=== PATIENT | female | born 1990 | race Caucasian/White ===

== ENCOUNTER 2017-03-06 13:48 | Emergency (ER) | payer BC ==
[2017-03-06 14:13] VITALS: BP 113/71
[2017-03-06] MEDS ORDERED: Ketorolac INJ* 60 MG/2 ML VIAL IM ONE (14:33)
--- NOTE | 2017-03-06 15:33 | UC ---
Back Pain HPI - HPI Summary HPI Summary: YESTERDAY BEGAN HAVING FREQUENT SPAMS IN MUSCLES OF LEFT LOW/MID BACK. NO KNOWN INJURY. NO DISCOMFORT WITH URINATION. NO ABDOMINAL PAIN. - History of Current Complaint Chief Complaint: UCBackPain Stated Complaint: BACK INJURY Time Seen by Provider: 03/06/17 14:18 Hx Obtained From: Patient Hx Last Menstrual Period: 02/24/17 Onset/Duration: Sudden Onset, Lasting Days, Still Present Timing: Intermittent Severity Initially: Moderate Severity Currently: Mild Pain Intensity: 2 Pain Scale Used: 0-10 Numeric Back Pain: Is Discrete @ - LEFT MID LOW BACK PARASPINAL MUSCLES Character: Spasmodic Aggravating: Movement, Lifting, Bending Alleviating: Rest, Position Associated Signs And Symptoms: Negative: Swelling, Redness, Bruising, Fever, Weakness, Numbness, Tingling, Abdominal Pain, Flank Pain, Bladder Incontinence, Bowel Incontinence, Pain with Weight Bearing - Risk Factors AAA Risk Factors: Negative TAD Risk Factors: Negative Cauda Equina Risk Factors: Negative Epidural Abscess Risk Factors: Negative - Allergies/Home Medications Allergies/Adverse Reactions: Allergies Allergy/AdvReac Type Severity Reaction Status Date / Time Penicillins Allergy Unknown Unknown Verified 04/04/16 12:48 Reaction Details Sulfa Antibiotics Allergy Unknown Unknown Verified 04/04/16 12:48 Reaction Details Home Medications: Home Medications Cyanocobalamin [Vitamin B-12] 1,000 mcg SL 03/06/17 [History] PMH/Surg Hx/FS Hx/Imm Hx Previously Healthy: Yes - Surgical History Surgical History: None Surgery Procedure, Year, and Place: tonsilectomy - Family History Known Family History: Negative: Renal Disease - Social History Occupation: Employed Full-time Lives: With Family Alcohol Use: None Substance Use Type: None Smoking Status (MU): Former Smoker Type: Cigarettes Amount Used/How Often: 1/3 PPD Length of Time of Smoking/Using Tobacco: 10 years Have You Smoked in the Last Year: Yes Review of Systems Constitutional: Negative Skin: Negative Eyes: Negative ENT: Negative Respiratory: Negative Cardiovascular: Negative Gastrointestinal: Negative Genitourinary: Negative Motor: Negative Neurovascular: Negative Musculoskeletal: Myalgia Neurological: Negative Psychological: Negative All Other Systems Reviewed And Are Negative: Yes - Comments Additional Review of Systems Comments: Current medications reviewed and performance met. except as documented, all other systems reviewed and negative Physical Exam Triage Information Reviewed: Yes Appearance: Well-Appearing, No Pain Distress, Well-Nourished Vital Signs: Initial Vital Signs Temp 98.2 F 03/06/17 14:09 Pulse 75 03/06/17 14:09 Resp 18 03/06/17 14:09 BP 113/71 03/06/17 14:09 Pulse Ox 99 03/06/17 14:09 Vital Signs Reviewed: Yes Eye Exam: Normal ENT Exam: Normal ENT: Positive: Normal ENT inspection, Hearing grossly normal, Pharynx normal, TMs normal Dental Exam: Normal Neck exam: Normal Neck: Positive: Supple, Nontender, No Lymphadenopathy Respiratory Exam: Normal Respiratory: Positive: Chest non-tender, Lungs clear, Normal breath sounds, No respiratory distress, No accessory muscle use Cardiovascular Exam: Normal Cardiovascular: Positive: RRR, No Murmur, Pulses Normal Abdominal Exam: Normal Abdomen Description: Positive: Nontender, No Organomegaly Musculoskeletal Exam: Other - 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 Discharge - Discharge Plan Condition: Stable Disposition: HOME Prescriptions: Cyclobenzaprine TAB* [Flexeril 10 MG TAB*] 10 mg PO TID PRN #15 tab PRN Reason: Spasms Patient Education Materials: Low Back Strain (ED), Muscle Spasm (ED) Referrals: Lisa Mtz MD [Primary Care Provider] - Additional Instructions: PHYSICAL THERAPY REFERRAL: You have been prescribed physical therapy. Treatments may include stretching, exercise, application of heat or cold, and other modalities. After an injury, PT can reduce swelling and pain. In recovery, PT is used to restore mobility and strength. Your specific treatment goals are: Reduction of Swelling (EGS, US, ice as needed) ___X__ Pain Reduction (EGS, US, ice as needed) ___X__ TENS Pack Fitting and Instruction Wound Hydrotherapy ___X__ Preservation of Mobility ___X__ Gnosticist of Mobility ___X__ Strength Gnosticist ___X__ Work or Sports Hardening This instruction sheet also serves as your PHYSICAL THERAPY REFERRAL! Please take it with you to the therapist, so he/she will be aware of your diagnosis and treatment plan. You may see the physical therapist of your choice for these treatments, but may wish to check with your insurance to be sure the provider you select is covered. It's important to see the doctor to whom you have been referred for follow up.
== END 2017-03-06 15:16 | disposition home or self-care (01) ==
LOC: UCEAST 13:48
DX: S39.012A Strain of muscle, fascia and tendon of lower back, initial encounter (principal); X58.XXXA Exposure to other specified factors, initial encounter; Y93.9 Activity, unspecified; Y92.9 Unspecified place or not applicable; M62.830 Muscle spasm of back; Z88.0 Allergy status to penicillin; Z88.2 Allergy status to sulfonamides; Z87.891 Personal history of nicotine dependence
CPT/HCPCS: 81003; 96372; 99212; G0463; J1885

== ENCOUNTER 2017-09-11 17:24 | Emergency (ER) | payer BC ==
[2017-09-11 17:31] VITALS: BP 122/65
--- NOTE | 2017-09-11 17:37 | UC ---
Skin Complaint HPI - HPI Summary HPI Summary: 27 year old female presents with complains of rash on her left groin. - History of Current Complaint Chief Complaint: UCSkin Time Seen by Provider: 09/11/17 17:33 Stated Complaint: RASH Hx Obtained From: Patient Hx Last Menstrual Period: 08/26/17 Onset/Duration: Sudden Onset Onset Severity: Moderate Current Severity: Moderate Location: Discrete - Allergy/Home Medications Allergies/Adverse Reactions: Allergies Allergy/AdvReac Type Severity Reaction Status Date / Time Penicillins Allergy Unknown Unknown Verified 09/11/17 17:30 Reaction Details Sulfa Antibiotics Allergy Unknown Unknown Verified 09/11/17 17:30 Reaction Details Home Medications: Home Medications ALPRAZolam TAB* [Xanax TAB*] 0.25 mg PO PRN 09/11/17 [History] Review of Systems Constitutional: Negative Skin: Rash Eyes: Negative ENT: Negative Respiratory: Negative Cardiovascular: Negative Gastrointestinal: Negative Genitourinary: Negative Motor: Negative Neurovascular: Negative Musculoskeletal: Negative Neurological: Negative Psychological: Negative All Other Systems Reviewed And Are Negative: Yes PMH/Surg Hx/FS Hx/Imm Hx Previously Healthy: Yes - Surgical History Surgical History: Yes Surgery Procedure, Year, and Place: tonsillectomy - Family History Known Family History: Negative: Renal Disease - Social History Alcohol Use: None Substance Use Type: None Smoking Status (MU): Former Smoker Type: Cigarettes Amount Used/How Often: 1/3 PPD Length of Time of Smoking/Using Tobacco: 10 years Have You Smoked in the Last Year: Yes Physical Exam Triage Information Reviewed: Yes Vital Signs: Initial Vital Signs Temp 36.6 C 09/11/17 17:27 Pulse 73 09/11/17 17:27 Resp 16 09/11/17 17:27 BP 122/65 09/11/17 17:27 Pulse Ox 100 09/11/17 17:27 Vital Signs Reviewed: Yes Eye Exam: Normal ENT Exam: Normal Dental Exam: Normal Neck exam: Normal Neck: Positive: 1 Respiratory Exam: Normal Cardiovascular Exam: Normal Abdominal Exam: Normal Musculoskeletal Exam: Normal Neurological Exam: Normal Psychological Exam: Normal Skin: Positive: rashes Course/Dx - Diagnoses Provider Diagnoses: left groin rash Discharge - Discharge Plan Condition: Stable Disposition: HOME Prescriptions: Clotrimazole/Betamethasone* [Lotrisone Cream*] 1 applic TOPICAL BID PRN #45 gm PRN Reason: Itching Methylprednisolone [Medrol Dosepak 4 MG*] 4 mg PO .SEE PEACE INSTRUCTION #21 tab Patient Education Materials: Acute Rash (ED) Referrals: Larisa Huddleston [Medical Doctor] - Lisa Mtz MD [Primary Care Provider] -
== END 2017-09-11 18:12 | disposition home or self-care (01) ==
LOC: UCEAST 17:24
DX: R21 Rash and other nonspecific skin eruption (principal); Z88.0 Allergy status to penicillin; Z88.2 Allergy status to sulfonamides; Z87.891 Personal history of nicotine dependence
CPT/HCPCS: 99212; G0463

== ENCOUNTER 2018-06-27 18:29 | Inpatient (IN) | payer BC ==
[2018-06-27 19:20] LABS: ABS Basophils 0 10^3/ul (0-0.2); ABS Eosinophils 0.2 10^3/ul (0-0.6); ABS Lymphocytes 2.6 10^3/ul (1.0-4.8); ABS Monocytes 0.6 10^3/ul (0-0.8); ABS Neutrophils 4.8 10^3/ul (1.5-7.7); ABS Nucleated RBC 0 10^3/ul; Eosinophil % 2.3 % (0-6); Hematocrit 38 % (35-47); Hemoglobin 13.2 g/dl (12.0-16.0); Lymphocyte % 31.6 % (25-47); Mean Corpuscular HGB Conc 34 g/dl (31-36); Mean Corpuscular Hemoglobin 31 pg (27-31); Mean Corpuscular Volume 89 fL (80-97); Mean Platelet Volume 7.9 um3 (7.4-10.4); Nucleated Red Blood Cells % 0.2; Platelet Count 215 10^3/ul (150-450); Red Cell Distribution Width 13 % (10.5-15); White Blood Count 8.2 10^3/ul (3.5-10.8)
--- NOTE | 2018-06-27 19:36 | ED ---
Shortness of Breath - HPI Summary HPI Summary: 19 female presents to ER transfer from [address] [place] [address] urgent care with complaints of shortness of breath and chest discomfort that has been ongoing for the past 5 issue days. States symptoms have seemed to increase over the past couple days. Admits to oral contraceptive use and recent long distance travel from [place]. No history of blood clot or PE. States chest pain or distress of breath or worsening exertion. Describes it to be sharp upon deep inspiration and a constant ache at rest. Denies nausea, vomiting, fever or chills or recent illness. Denies cigarette use for the past 3 years. No cardiac or respiratory history. No radiation of pain. No recent calf pain or swelling. - History of Current Complaint Chief Complaint: EDShortnessOfBreath Time Seen by Provider: 06/27/18 18:51 Hx Obtained From: Patient Onset/Duration: Sudden Onset, Lasting Days, Still Present, Worse Since Timing: Constant Current Severity: Moderate Dyspnea At: Exertion Aggrevating Factors: Deep Breaths Alleviating Factors: Nothing Associated Signs & Symptoms: Negative - Risk Factors Pulmonary Embolism: Oral Contraceptives, Recent Travel Cardiac: Negative Pseudomonas: Negative Tuberculosis: Negative - Allergy/Home Medications Allergies/Adverse Reactions: Allergies Allergy/AdvReac Type Severity Reaction Status Date / Time Penicillins Allergy Hives Verified 06/27/18 18:49 Sulfa (Sulfonamide Allergy Hives Verified 06/27/18 18:49 Antibiotics) Home Medications: Home Medications Ethinyl Estradiol/Drospirenone [Loryna] 1 tab PO DAILY 06/27/18 [History Confirmed 06/27/18] PMH/Surg Hx/FS Hx/Imm Hx Endocrine/Hematology History: Denies: Hx Diabetes Cardiovascular History: Denies: Hx Deep Vein Thrombosis, Hx Hypertension Respiratory History: Denies: Hx Asthma History: Denies: Hx Renal Disease - Surgical History Surgery Procedure, Year, and Place: tonsillectomy - Immunization History Immunizations Up to Date: Yes Infectious Disease History: No Infectious Disease History: Denies: Hx Clostridium Difficile, Hx Hepatitis, Hx Human Immunodeficiency Virus (HIV), Hx of Known/Suspected MRSA, Hx Shingles, Hx Tuberculosis, Hx Known/ Suspected VRE, Hx Known/Suspected VRSA, History Other Infectious Disease, Traveled Outside the in Last 30 Days - Family History Known Family History: Negative: Renal Disease - Social History Alcohol Use: None Substance Use Type: Reports: None Smoking Status (MU): Former Smoker Type: Cigarettes Amount Used/How Often: 1/3 PPD Length of Time of Smoking/Using Tobacco: 10 years Have You Smoked in the Last Year: Yes Review of Systems Constitutional: Negative Eyes: Negative ENT: Negative Positive: Chest Pain Positive: Shortness Of Breath Gastrointestinal: Negative Musculoskeletal: Negative Skin: Negative Neurological: Negative All Other Systems Reviewed And Are Negative: Yes Physical Exam Triage Information Reviewed: Yes Vital Signs On Initial Exam: Initial Vitals Temp Pulse Resp BP Pulse Ox 98.8 F 84 18 140/98 98 06/27/18 18:31 06/27/18 18:31 06/27/18 18:31 06/27/18 18:31 06/27/18 18:31 Vital Signs Reviewed: Yes Appearance: Positive: Well-Appearing, No Pain Distress, Well-Nourished Skin: Positive: Warm, Skin Color Reflects Adequate Perfusion, Dry. Negative: Cold, Soft, Cyanosis @, Pale, Erythema @ Head/Face: Positive: Normal Head/Face Inspection Eyes: Positive: Conjunctiva Clear ENT: Positive: Pharynx normal Neck: Positive: Supple, Nontender Respiratory/Lung Sounds: Positive: Clear to Auscultation, Breath Sounds Present , Decreased Breath Sounds, Fatigue - with speaking in sentences frequent breaks due to feeling SOB, Other - Chest discomfort upon deep inspiration. Negative: Rales, Rhonchi, Stridor, Tracheal Deviation, Wheezes Cardiovascular: Positive: Normal, RRR, Pulses are Symmetrical in both Upper and Lower Extremities, Other - Chest pain nonreproducible. Negative: Murmur, Rub, Tachycardia, Leg Edema Left, Leg Edema Right Abdomen Description: Positive: Nontender, Soft Bowel Sounds: Positive: Present Musculoskeletal: Positive: Normal, Strength/ROM Intact Neurological: Positive: Normal, Sensory/Motor Intact, Alert, Oriented to Person Place, Time, Normal Gait Diagnostics - Vital Signs Vital Signs Temp Pulse Resp BP Pulse Ox 06/27/18 19:16 20 124/77 06/27/18 19:00 87 24 100 06/27/18 18:46 88 16 132/73 99 06/27/18 18:31 98.8 F 84 18 140/98 98 - Laboratory Lab Results: Lab Results 06/27/18 06/27/18 Range/Units 19:15 19:15 WBC 8.2 (3.5-10.8) 10^3/ul RBC 4.30 (4.00-5.40) 10^6/ul Hgb 13.2 (12.0-16.0) g/dl Hct 38 (35-47) % MCV 89 (80-97) fL MCH 31 (27-31) pg MCHC 34 (31-36) g/dl RDW 13 (10.5-15) % Plt Count 215 (150-450) 10^3/ul MPV 7.9 (7.4-10.4) um3 Neut % (Auto) 58.3 (38-83) % Lymph % (Auto) 31.6 (25-47) % Villalba % (Auto) 7.2 H (0-7) % Eos % (Auto) 2.3 (0-6) % Baso % (Auto) 0.6 (0-2) % Absolute Neuts (auto) 4.8 (1.5-7.7) 10^3/ul Absolute Lymphs (auto) 2.6 (1.0-4.8) 10^3/ul Absolute Monos (auto) 0.6 (0-0.8) 10^3/ul Absolute Eos (auto) 0.2 (0-0.6) 10^3/ul Absolute Basos (auto) 0 (0-0.2) 10^3/ul Absolute Nucleated RBC 0 10^3/ul Nucleated RBC % 0.2 D-Dimer, Quantitative > 1050 H (Less Than 230) ng/mL Result Diagrams: 06/27/18 19:15 06/27/18 19:15 Lab Statement: Any lab studies that have been ordered have been reviewed, and results considered in the medical decision making process. - CT CTA chest CT Interpretation: Positive (See Comments) - Moderate to large volume pulmonary emboli burning without findings of right heart strain CT Interpretation Completed By: Radiologist Re-Evaluation - Re-Evaluation First Eval Re-Evaluation Time: 20:00 Change: Unchanged - Updated on lab results Second Eval Re-Evaluation Time: 20:45 Change: Unchanged - Updated on imaging results and course of treatment/plan. All questions were answered. Patient agrees and understands. Course/Dx - Course Course Of Treatment: Labs, EKG, and hCG obtained. Negative troponin. D-dimer was positive. EKG and rest of labs unremarkable. Negative hCG. CTA obtained and sent positive for bilateral PE. Patient will be admitted to Dr. Torres for treatment and close observation. - Diagnoses Differential Diagnosis/HQI/PQRI: Positive: Chest Wall Pain, Pulmonary Embolism Provider Diagnoses: Pulmonary embolism - Physician Notifications Discussed Care of Patient With: Dr Torres Time Discussed With Above Provider: 20:45 Instructed by Provider To: Admit As Inpatient Admit/Transition Orders Completed By ED Provider: No Discharge - Sign-Out/Discharge Documenting (check all that apply): Patient Departure - Discharge Plan Condition: Stable Disposition: ADMITTED TO [facility] - Billing Disposition and Condition Condition: STABLE Disposition: Admitted to [facility]
[2018-06-27 19:37] LABS: EGFR Non-African American 106.6 (>60)
--- OUTSIDE RECORDS SUMMARY | 2018-06-27 19:44 | XMS REPORT ---
:1990 External Reference #:[id number] Author Organization [facility] Address [address] [place] [address] Phone [phone] Care Team Providers Name Role Phone Lisa Mtz M.D. Primary Care Physician Unavailable Payers Type Date Identification Payment Subscriber Numbers Provider Health Maintenance Expires: Policy Number: [facility] (O) 11/18/2012 [id number] [facility]ина ) Group Name: [place] [address] PayID: [id number] [place] [address] Medigap Part B Expires: 11/18/2012 Policy Number: Tom Ramos [id number] [address] [place] [address] Medigap Part B Effective: Policy Number: [facility] Jerzy 07/03/2012 [id number] [facility] Expires: 11/18/2014 Group Number: [id number] Paula Group Name: [place] [address] Commercial Effective: Policy Number: Jorge Luis [facility] Jerzy Laxmi 11/19/2014 [id number] Medicaid [place] Expires: 04/17/2015 PayID: [id number] [address] [place] [address] Medigap Part B Effective: Policy Number: Aielen Hair 04/19/2015 [id number] [facility] Group Name: [employer] 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 quit 9 Pack Daily mos ago ETOH Use Rarely consumes alcohol Recreational Drug Use Denies Drug Use Daily Caffeine Consumes on average 2 cups of coffee per day Seat Belt/Car Seat always uses seat belt Currently Active Has never engaged in sexual activity Parental Involvement mother and father are both very involved Allergies, Adverse Reactions, Alerts Date Description Reaction Status Severity Comments 09/01/2003 Sulfa active Hives 09/01/2003 Augmentin active Hives 09/24/2006 Food inactive Swelling Face/ Hives- ? Food- + To Celery, Onions, Pepp Medications Medication Date Status Form Strength Qnty SIG Indications Ordering Provider Propranolol HCL 05/30 Active Tablets 10mg 30tab 1 tab by F40.241 s mouth three [place], times a day MD as needed for acrophobia Loratadine 09/14 Active Tablets 10mg (generic for claritin)- 1 P. Blegen, by mouth M.D. every day as needed allergies Multi Complete 06/14 Active Capsules occasionally Shawnti R. /2014 Justo, MAINTENANCE REPAIRER-C Alprazolam 11/28 Active Tablets 0.25mg 30tab 11/20-1 by Jeff s mouth every [place] night at III, MAINTENANCE REPAIRER-C bedtime as needed anxiety Loryna Active Tablets 3-0.02mg Unknown /0000 Vitamin B-12 03/25 Hx Tablets 1000mcg 1 by mouth Lisa every day- P. Blegen, - sublingual- M.D. 05/30 for vitamin b12 deficiency Azithromycin 10/25 Hx Tablets 250mg 6tabs take 2 J01.90 tablets by Gutierrez, - mouth one MD 05/30 time take one daily for 4 days. Wait to fill until patient calls. Ergocalciferol 10/08 Hx Capsules [id number] 12cap take 1 Lisa s capsule by Miladis Mtz, - mouth every M.D. 05/30 week as directed for vitamin d deficiency as directed Flexeril 07/20 Hx Tablets 5mg 30tab 1-2 tabs M53.3 Preston s daily for [place], - muscle spasm MD 09/14 Metamucil Smooth 03/30 Hx Packet 28% 90uni 1 packet by K58.0 Shawnti R. Texture ts mouth daily Storm, Singles - MAINTENANCE REPAIRER-C 09/14 Cyclobenzaprine 05/06 Hx Tablets 10mg 15tab (flexeril)- 724.5 Lisa HCL /2014 s 1 by mouth Miladis Mtz, - twice a day M.D. 06/14 as needed /2014 muscle spasm Robitussin ac 04/10 Hx 300ml 1-2 teaspoon 465.8 Kayla /2013 by mouth Melina Gentile, - q4-6hr as M.D. 04/20 needed /2013 cough/pain Hydroxyzine HCL 04/10 Hx Tablets 10mg 30tab 1 or 2 po 465.8 Kayla /2013 s tid prn for Melina Gentile, - anxiety M.D. 06/14 Fluocinonide 11/13 Hx Ointment 0.05% 30gm apply 691.8 Martywnti R. sparignly to Storm, - affeceted MAINTENANCE REPAIRER-C 04/10 area bid prn /2013 Sertraline HCL 10/09 Hx Tablets 50mg 135ta 1 and 1/2 po 296.35 Lisa bs qd Miladis Mtz, - M.D. 11/13 Hydroxyzine HCL 10/09 Hx Tablets 10mg 30tab 1 or 2 po Shawnti R. s tid prn for Storm, - anxiety MAINTENANCE REPAIRER-C 11/28 Azithromycin 07/27 Hx Tablets 250mg 6tabs 2 po today 461.0 Rosalina /2010 then 1 po Alysha, - daily for 4 M.D., R.D. Sertraline HCL 06/22 Hx Tablets 25mg 90tab one po 296.35 Shawnti R. s daily for Storm, - anxiety and MAINTENANCE REPAIRER-C 10/09 depression Fluoxetine HCL 01/12 Hx Tablets 10mg 1 po qd 300.00 Shawnti R. Storm, - MAINTENANCE REPAIRER-C 07/27 Azithromycin 12/15 Hx Tablets 250mg 6tabs 2 tabs po on 486 day one then P. Blegen, - 1 tab qd for M.D. 07/27 Azithromycin 09/27 Hx Tablets 250mg 6tabs 2 po today 466.0 Shawnti R. /2008 then 1 po Storm, - daily for 4 MAINTENANCE REPAIRER-C Robitussin ac 09/27 Hx 150ml 1-2 tsp po 466.0 Shawnti R. q4-6hr prn Storm, - cough/pain MAINTENANCE REPAIRER-C 07/27 Proventil HFA 08/03 Hx Aerosol 108mcg/Ac 1unit 2 puffs q 4 t s hours prn P. Blegen, - wheezing/ M.D. 11/27 cough Ergocalciferol 01/03 Hx Tablets 50,000Uni 12tab one po Three ts s Times Per P. Blegen, - Week Then M.D. 05/09 Recheck Bloodwork Ibuprofen 10/21 Hx Tablets 800mg 30tab One PO tid 625.3 Cherelle A. s With Food Skye, - prn F.N.P.C. 11/27 Asmanex 08/28 Hx Inhaler 220mcg 1unit Inhale One 466.0 Shawnti R. Twistihaler s Dose QHS For Storm, - Asthma, MAINTENANCE REPAIRER-C 09/11 Rinse Mouth After Use No Work 08/25 Hx please 466.0 Shawnti R. excuse due Storm, - to illness, MAINTENANCE REPAIRER-C 07/27 may once feeling better Albuterol 08/25 Hx Aerosol 90mcg/Act 1Inha 2 puffs 466.0 Shawnti R. lr every 4-6 , - hours if MAINTENANCE REPAIRER-C 11/27 needed for cough, wheeze or shortness of breath Return To Work 06/01 Hx full duty, 724.5 Cherelle A. /2007 no Skye, - restrictions F.N.P.C. 07/27 . hx of neck /2010 injury Zyrtec-D 03/03 Hx Tablets 5-120mg 60tab 1 po bid for 465.9 Shawnti R. /2007 ER 12HR s allergies Storm, - MAINTENANCE REPAIRER-C 11/27 Robitussin ac 03/03 Hx 150ml 1-2 tsp po 465.9 Shawnti R. /2007 q4-6hr prn Storm, - cough/pain MAINTENANCE REPAIRER-C 11/27 No School 03/03 Hx please 465.9 Shawnti R. excuse due Storm, - to illness, MAINTENANCE REPAIRER-C 07/27 when feeling better Ortho Tri-Cyclen 12/30 Hx Tablets 1tabs Use as Lisa Directed PDenise Blegen, - M.D. 11/27 Zithromax 07/24 Hx Tablets 500mg 3tabs 1 qd X 3 465.9 Cherelle A. Tri-Steve 2006March, - Repeat After F.N.P.C. 08/03 10 Days SX Persist Zithromax Z-Steve 05/21 Hx Tablets 250mg 6tabs two po qd Lisa today and P. Blegen, - then one po M.D. 07/27 qd for days Phenergan 12/11 Hx Tablets 25mg 6tabs 1 per rectum q 6 hours P. Blegen, - prn nausea/ M.D. 07/27 vomiting Excuse From 10/29 Hx this is to Lisa confirm PT P. Blegen, - seen at our M.D. 07/27 office today for acute visit Gentamycin Ophth 02/22 Hx Solution 3mg/ml 5ml 2 Drops qid 372.30 Cherelle Saini. Until SX , - Resolved For F.N.P.C. 11/27 5 Benzaclin Gel 07/17 Hx 50Gra use qhs up m to bid for P. Blegen, - acne as M.D. 02/22 Singulair 07/22 Hx Tablets 10mg 30tab one qd at hs s P. Blegen, - M.D. 02/22 Prednisone 07/22 Hx Tablets 10mg 10tab use 1 tab s bid x 5 P. Blegen, - days- take M.D. 02/22 with Zyrtec 07/19 Hx Tablets 10mg 30tab 1 po qd s P. Blegen, - M.D. 02/22 Janet Tabs Hx Tablets 180mg 0tabs one qd Unknown /0000 - 07/19 Sudafed Hx Tablets 30mg prn /0000 - 11/27 Medications Administered in Office Medication Date Status Form Strength Qnty SIG Indications Ordering Provider Vitamin B-12 Administered Injection Lab and Injection-To 009 Office 1000g Services Vitamin B-12 Administered Injection Lab and Injection-To 009 Office 1000g Services Vitamin B-12 Administered Injection Lisa P. Injection-To 009 Blegen, 1000mcg M.D. Vitamin B-12 Administered Injection Lisa P. Injection-To 009 Blegen, 1000mcg M.D. Vitamin B-12 Administered Injection Lisa P. Injection-To 009 Blegen, 1000mcg M.D. Vitamin B-12 Administered Injection Lisa P. Injection-To 009 Blegen, 1000mcg M.D. Vitamin B-12 Administered Injection Lisa P. Injection-To 009 Blegen, 1000mcg M.D. TB,Intradermal Administered Injection Milton (PPD, Mantoux) 990 Varun Bee Immunizations CPT Code Status Date Vaccine Lot # [id number] Given 10/02/2017 Influenza Virus Vaccine, Quadrivalent, 3 Yr > Quad, Preserv Free 82891 Given 08/17/2016 Influenza Virus Vaccine, Quadrivalent, 3 Yr > Quad, Preserv Free 26446 Given 05/19/2014 Tdap (Adacel) [id number] 37626 Given 11/28/2012 Menactra (meningococcal conjugate vaccine) [id number] 69945 Given 09/13/2011 Influenza Vaccine-Preservative Free 3 Yrs And [id number] Above 98389 Given 04/09/2007 Meningococcal Polysaccharide Vaccine [id number] 54803 Given 12/04/2006 Influenza Virus Vaccine, 3 Yrs And Above 38436 34753 Given 04/18/2005 DT (Adult) 64088 Given 01/14/2002 Hep B Vaccine, Ped/Adol Dose 3 Dose (Engerix or Recombivax) 15925 Given 09/20/2001 Hep B Vaccine, Ped/Adol Dose 3 Dose VFC (Engerix or Recombivax) 60301 Given 07/17/2001 Hep B Vaccine, Ped/Adol Dose 3 Dose VFC (Engerix or Recombivax) 12778 Given 12/22/1993 DPT 73500 Given 12/22/1993 MMR (Measles,Mumps,Rubella) 62416 Given 12/22/1993 Opv (Poliovirus,Oral) 56218 Given 08/16/1992 DPT 37980 Given 08/16/1992 Hib (Hemophilus Influenza B) (Acthib) 26261 Given 07/28/1992 Opv (Poliovirus,Oral) 09862 Given 07/28/1992 MMR (Measles,Mumps,Rubella) 27336 Given 09/26/1990 Hib (Hemophilus Influenza B) (Acthib) 83974 Given 02/22/1990 DPT 83103 Given 1989 Opv (Poliovirus,Oral) 20500 Given 1989 DPT 97355 Given 1989 Opv (Poliovirus,Oral) 16970 Given 1989 DPT Vital Signs Date Vital Result Comment 05/30/2018 Weight 213.00 lb Weight in kg's 96.617 BP Systolic 120 mmHg BP Diastolic 76 mmHg Heart Rate 68 /min Body Temperature 99.6 F Respiratory Rate 16 /min Height 68.5 inches 5'8.50" BMI (Body Mass Index) 31.9 kg/m2 05/07/2018 Weight 217.00 lb Weight in kg's 98.431 BP Systolic 120 mmHg BP Diastolic 82 mmHg Heart Rate 72 /min Body Temperature 98.7 F Respiratory Rate 14 /min 06/12/2017 Weight 228.00 lb Weight in kg's 103.421 BP Systolic 108 mmHg BP Diastolic 56 mmHg Heart Rate 76 /min Body Temperature 98.2 F Respiratory Rate 16 /min O2 % BldC Oximetry 99 % 10/25/2016 Weight 241.00 lb Weight in kg's 109.318 BP Systolic 118 mmHg BP Diastolic 78 mmHg Heart Rate 100 /min Body Temperature 99.1 F Respiratory Rate 16 /min O2 % BldC Oximetry 99 % 09/14/2016 Weight 241.00 lb Weight in kg's 109.318 BP Systolic 128 mmHg BP Diastolic 74 mmHg Heart Rate 68 /min Body Temperature 98.8 F Respiratory Rate 12 /min Height 67.5 inches 5'7.50" BMI (Body Mass Index) 37.2 kg/m2 Last Menstrual Period [id number] 07/20/2016 Weight 243.00 lb Weight in kg's 110.225 BP Systolic 120 mmHg BP Diastolic 70 mmHg Heart Rate 76 /min Body Temperature 98.7 F Respiratory Rate 12 /min 06/29/2016 Weight 242.00 lb Weight in kg's 109.771 BP Systolic 126 mmHg BP Diastolic 76 mmHg Heart Rate 64 /min Body Temperature 99.7 F Respiratory Rate 14 /min Height 68.5 inches 5'8.50" BMI (Body Mass Index) 36.3 kg/m2 03/30/2016 Weight 241.00 lb Weight in kg's 109.318 BP Systolic 140 mmHg BP Diastolic 80 mmHg Heart Rate 74 /min Body Temperature 98.8 F 06/14/2015 Weight 220.00 lb Weight in kg's 99.792 BP Systolic 100 mmHg BP Diastolic 70 mmHg Heart Rate 72 /min Height 68.5 inches 5'8.50" BMI (Body Mass Index) 33.0 kg/m2 Last Menstrual Period [id number] 05/06/2015 Weight 212.00 lb Weight in kg's 96.163 BP Systolic 92 mmHg BP Diastolic 70 mmHg Heart Rate 84 /min Body Temperature 98.0 F Ibeprofen AT 7Am 05/19/2014 Weight 206.00 lb Weight in kg's 93.442 BP Systolic 108 mmHg BP Diastolic 78 mmHg Heart Rate 96 /min Body Temperature 98.8 F 04/10/2014 Weight 205.00 lb Weight in kg's 92.988 BP Systolic 108 mmHg BP Diastolic 68 mmHg Heart Rate 94 /min Body Temperature 98.8 F Height 68.5 inches 5'8.50" BMI (Body Mass Index) 30.7 kg/m2 O2 % BldC Oximetry 99 % 11/13/2013 Weight 205.00 lb Weight in kg's 92.988 BP Systolic 98 mmHg BP Diastolic 66 mmHg Heart Rate 84 /min Body Temperature 98.7 F 11/28/2012 Weight 218.00 lb Weight in kg's 98.885 BP Systolic 116 mmHg BP Diastolic 64 mmHg Heart Rate 92 /min Height 68.5 inches 5'8.50" BMI (Body Mass Index) 32.7 kg/m2 10/31/2011 Weight 235.00 lb Weight in kg's 106.596 BP Systolic 100 mmHg BP Diastolic 70 mmHg Heart Rate 80 /min Height 68 inches 5'8" BMI (Body Mass Index) 35.7 kg/m2 Right Visual Acuity Distance 20/25 With Correction Left Visual Acuity Distance 20/20 With Correction Both Visual Acuity Distance 20/20 With Correction Last Menstrual Period 0 Menstruating O2 % BldC Oximetry 99 % 10/09/2011 Weight 236.00 lb Weight in kg's 107.050 BP Systolic 100 mmHg BP Diastolic 68 mmHg Heart Rate 82 /min 07/27/2011 Weight 216.00 lb Weight in kg's 97.978 BP Systolic 110 mmHg BP Diastolic 70 mmHg Heart Rate 88 /min Body Temperature 98.9 F 07/07/2011 Weight 218.00 lb Weight in kg's 98.885 BP Systolic 110 mmHg BP Diastolic 64 mmHg Heart Rate 76 /min 06/22/2011 Weight 220.00 lb Weight in kg's 99.792 BP Systolic 108 mmHg BP Diastolic 60 mmHg Heart Rate 80 /min Body Temperature 99.3 F 07/09/2010 Weight 214.00 lb Weight in kg's 97.070 BP Systolic 122 mmHg BP Diastolic 80 mmHg Heart Rate 93 /min Body Temperature 99.7 F O2 % BldC Oximetry 99 % 06/27/2010 Weight 219.00 lb Weight in kg's 99.338 BP Systolic 108 mmHg BP Diastolic 68 mmHg Heart Rate 72 /min Body Temperature 98.9 F 01/12/2010 Weight 204.00 lb Weight in kg's 92.534 BP Systolic 108 mmHg BP Diastolic 68 mmHg Heart Rate 88 /min Body Temperature 98.6 F O2 % BldC Oximetry 98 % AT Room Air 12/15/2009 Weight 206.00 lb Weight in kg's 93.442 BP Systolic 106 mmHg BP Diastolic 70 mmHg Heart Rate 87 /min Body Temperature 99.2 F O2 % BldC Oximetry 98 % 09/27/2009 Weight 197.00 lb Weight in kg's 89.359 BP Systolic 132 mmHg BP Diastolic 80 mmHg Heart Rate 76 /min Body Temperature 98.9 F Last Menstrual Period 0 O2 % BldC Oximetry 98 % 08/03/2009 Weight 197.00 lb Weight in kg's 89.359 BP Systolic 120 mmHg BP Diastolic 76 mmHg Heart Rate 76 /min Body Temperature 97.4 F 12/31/2008 Weight 212.00 lb Weight in kg's 96.163 BP Systolic 106 mmHg BP Diastolic 68 mmHg Heart Rate 100 /min 10/21/2008 Weight 209.00 lb Weight in kg's 94.802 BP Systolic 134 mmHg BP Diastolic 72 mmHg Heart Rate 88 /min Last Menstrual Period [id number] 08/31/2008 Weight 213.00 lb Weight in kg's 96.617 BP Systolic 120 mmHg BP Diastolic 62 mmHg Heart Rate 94 /min Body Temperature 98.4 F 08/28/2008 Weight 211.00 lb Weight in kg's 95.710 BP Systolic 120 mmHg BP Diastolic 60 mmHg Body Temperature 98.6 F oral 08/25/2008 Weight 215.00 lb Weight in kg's 97.524 BP Systolic 110 mmHg BP Diastolic 68 mmHg Heart Rate 68 /min Body Temperature 98.7 F oral 06/01/2008 Weight 219.00 lb Weight in kg's 99.338 BP Systolic 110 mmHg BP Diastolic 68 mmHg Heart Rate 80 /min Weight Percentile >97th 05/28/2008 Weight 220.00 lb Weight in kg's 99.792 BP Systolic 100 mmHg BP Diastolic 60 mmHg Heart Rate 72 /min Weight Percentile >97th 03/03/2008 Weight 224.00 lb Weight in kg's 101.606 Body Temperature 99.7 F Weight Percentile >97th 12/30/2007 Weight 226.00 lb Weight in kg's 102.514 BP Systolic 122 mmHg BP Diastolic 68 mmHg Heart Rate 85 /min Height 68 inches 5'8" Height Percentile 92 % Weight Percentile >97th BMI (Body Mass Index) 34.4 kg/m2 Body Mass Index Percentile 97 % Last Menstrual Period 0 O2 % BldC Oximetry 93 % 09/11/2007 Weight 239.00 lb Weight in kg's 108.410 BP Systolic 100 mmHg BP Diastolic 60 mmHg Heart Rate 86 /min Body Temperature 98.3 F Weight Percentile >97th 07/24/2007 Weight 229.00 lb Weight in kg's 103.874 BP Systolic 110 mmHg BP Diastolic 78 mmHg Body Temperature 99.3 F Weight Percentile >95th 05/21/2007 BP Systolic 110 mmHg BP Diastolic 68 mmHg Heart Rate 88 /min Body Temperature 98.8 F 10/29/2006 Weight 228.00 lb Weight in kg's 103.421 BP Systolic 122 mmHg BP Diastolic 70 mmHg Heart Rate 80 /min Weight Percentile >95th 09/18/2006 Weight 224.50 lb Weight in kg's 101.833 BP Systolic 110 mmHg BP Diastolic 62 mmHg Heart Rate 64 /min Weight Percentile >95th 05/09/2006 Weight 218.00 lb Weight in kg's 98.885 BP Systolic 110 mmHg BP Diastolic 70 mmHg Heart Rate 80 /min Weight Percentile >95th 02/22/2006 Weight 210.00 lb Weight in kg's 95.256 Body Temperature 98.2 F Weight Percentile >95th 08/09/2005 Weight 212.00 lb Weight in kg's 96.163 Body Temperature 97.2 F Weight Percentile >95th 07/17/2005 Weight 208.00 lb Weight in kg's 94.349 Body Temperature 98.5 F Weight Percentile >95th 04/18/2005 Weight 209.00 lb Weight in kg's 94.802 BP Systolic 120 mmHg BP Diastolic 62 mmHg Heart Rate 78 /min Height 67 inches 5'7" Height Percentile 88 % Weight Percentile >95th BMI (Body Mass Index) 32.7 kg/m2 Body Mass Index Percentile 95 % Right Visual Acuity Distance 20/25 Left Visual Acuity Distance 20/20 01/17/2005 Weight 203.00 lb Weight in kg's 92.081 BP Systolic 122 mmHg BP Diastolic 80 mmHg Body Temperature 98.3 F Weight Percentile >95th 07/22/2004 Weight 194.00 lb Weight in kg's 87.998 BP Systolic 100 mmHg BP Diastolic 70 mmHg Heart Rate 98 /min Weight Percentile >95th 09/01/2003 Weight 188.00 lb Weight in kg's 85.277 BP Systolic 108 mmHg BP Diastolic 62 mmHg Heart Rate 82 /min Respiratory Rate 18 /min Height 66.5 inches Height Percentile 89 % Weight Percentile >95th BMI (Body Mass Index) 29.9 kg/m2 Results Test Date Test Result H/L Range Note Laboratory test 02/06/2018 Surgical Pathology SEE RESULT BELOW 1, 2 finding Laboratory test 06/25/2017 Partial Thrombo 27.0 seconds 26.0-36.3 finding Time PTT Inr/Protime 06/12/2017 Inr 0.93 0.89-1.11 3 Laboratory test 06/12/2017 Vitamin D Total 30.8 ng/mL 30-50 3, 4 finding 25(Oh) Vitamin B12 1392 pg/mL High 180-914 3, 5 CBC Auto Diff 06/12/2017 White Blood Count 7.2 10^3/uL 3.5-10.8 3 Red Blood Count 4.37 10^6/uL 4.0-5.4 3 Hemoglobin 13.1 g/dL 12.0-16.0 3 Hematocrit 40 % 35-47 3 Mean Corpuscular Volume 91 fL 80-97 3 Mean Corpuscular Hemoglobin 30 pg 27-31 3 Mean Corpuscular HGB Conc 33 g/dL 31-36 3 Red Cell Distribution Width 14 % 10.5-15 3 Platelet Count 256 10^3/uL 150-450 3 Mean Platelet Volume 9 um3 7.4-10.4 3 Abs Neutrophils 4.3 10^3/uL 1.5-7.7 3 Abs Lymphocytes 2.2 10^3/uL 1.0-4.8 3 Abs Monocytes 0.5 10^3/uL 0-0.8 3 Abs Eosinophils 0.1 10^3/uL 0-0.6 3 Abs Basophils 0 10^3/uL 0-0.2 3 Abs Nucleated RBC 0 10^3/uL 3 Granulocyte % 60.8 % 38-83 3 Lymphocyte % 30.4 % 25-47 3 Monocyte % 6.5 % 1-9 3 Eosinophil % 1.8 % 0-6 3 Basophil % 0.5 % 0-2 3 Nucleated Red Blood Cells % 0 3 Comp Metabolic Panel 06/12/2017 Sodium 138 mmol/L 133-145 3 Potassium 4.2 mmol/L 3.5-5.0 3 Chloride 106 mmol/L 101-111 3 Co2 Carbon Dioxide 29 mmol/L 22-32 3 Anion Gap 3 mmol/L 2-11 3 Glucose 86 mg/dL 70-100 3 Blood Urea Nitrogen 8 mg/dL 6-24 3 Creatinine 0.64 mg/dL 0.51-0.95 3 BUN/Creatinine Ratio 12.5 8-20 3 Calcium 9.1 mg/dL 8.6-10.3 3 Total Protein 6.7 g/dL 6.4-8.9 3 Albumin 4.0 g/dL 3.2-5.2 3 Globulin 2.7 g/dL 2-4 3 Albumin/Globulin Ratio 1.5 1-3 3 Total Bilirubin 0.40 mg/dL 0.2-1.0 3 Alkaline Phosphatase 40 U/L 34-104 3 Alt 10 U/L 7-52 3 Ast 16 U/L 13-39 3 Egfr Non- 111.3 >60 3 Egfr 143.2 >60 3, 6 Lyme Western Blot 06/12/2017 Lyme Disease IgG Ab WB Negative Negative 3 Lyme Disease IgG Bands Present No bands detecte <SEE NOTE> kDa 3, 7 Lyme Disease IgM Ab WB Negative Negative 3 Lyme Disease IgM Bands Present No bands detecte <SEE NOTE> kDa 3, 8 Lyme Disease Interpretation See Comment 3, 9 Tick-Borne Panel PCR Blood 06/12/2017 Babesia microti PCR Negative Negative 3 Babesia ducani Negative Negative 3 Babesia divergens/Mo-1 Negative Negative 3, 10 Anaplasma phagocytophilum Negative Negative 3 Ehrlichia chaffeensis Negative Negative 3 Ehrlichia ewingii/canis Negative Negative 3 Ehrlichia muris-like Negative Negative 3, 11 B. miyamotoi PCR, B Negative Negative 3, 12 Poc Urinalysis 03/06/2017 Poc Glucose, Urine Negative Negative Poc Bilirubin, Urine 1+ Negative Poc Ketone, Urine Trace Negative Poc Specific [place], Urine 1.025 1.010-1.030 Poc Blood, Urine Negative Negative Poc pH, Urine 6.0 5-9 Poc Protein, Urine Trace Negative Poc Urobilinogen, Urine 0.2 Negative Poc Nitrite, Urine Negative Negative Poc Leukocytes, Urine Negative Negative Poc Color, Urine Dark yellow Poc Clarity, Urine Clear 13 Laboratory test finding 02/23/2017 Vitamin B12 714 pg/mL 180-914 14 Vitamin D Total 25(Oh) 27.1 ng/mL Low 30-50 15 Urine DIP 09/14/2016 Leukocytes neg Neg Urine Nitrites neg Neg Urobilinogen norm Norm Total Protein, Urine neg Neg Urine pH 5 5-6 Urine Blood neg Neg Specific [place] 1.015 1.01-1.02 Urine Ketones neg Neg Urine Bilirubin neg Neg Urine Glucose norm Norm GC/Chlamydia Amplified Rna 09/14/2016 Chlamydia trachomatis Rna Negative Negative Neisseria gonorrhoeae (GC) Rna Negative Negative Laboratory test finding 09/14/2016 TSH (Thyroid Stim 1.98 mcIU/mL 0.34- 5.60 16 Horm) Free T4 (Free Thyroxine) 0.88 ng/dL 0.61-1.12 17 Vitamin B12 203 pg/mL 180-914 18 Vitamin D Total 25(Oh) 14.8 ng/mL Low 30-50 19 Ferritin 15.6 ng/mL 11-307 20 HIV 1&2 AB Self Referred Nonreactive Nonreactive 21 Syphillis Igg W/Reflex RPR Nonreactive Nonreactive 22 Laboratory test finding 09/14/2016 Cytology SEE RESULT BELOW 23 Lipid Profile (Trig/Chol/HDL) 09/14/2016 Triglycerides 40 mg/dL 24 Cholesterol 127 mg/dL 25 HDL Cholesterol 67.9 mg/dL 26 LDL Cholesterol 51 mg/dL 27 Comp Metabolic Panel 09/14/2016 Sodium 138 mmol/L 133-145 Potassium 4.4 mmol/L 3.5-5.0 Chloride 103 mmol/L 101-111 Co2 Carbon Dioxide 26 mmol/L 22-32 Anion Gap 9 mmol/L 2-11 Glucose 83 mg/dL 70-100 Blood Urea Nitrogen 10 mg/dL 6-24 Creatinine 0.65 mg/dL 0.51-0.95 BUN/Creatinine Ratio 15.4 8-20 Calcium 10.0 mg/dL 8.6-10.3 Total Protein 7.3 g/dL 6.4-8.9 Albumin 4.5 g/dL 3.2-5.2 Globulin 2.8 g/dL 2-4 Albumin/Globulin Ratio 1.6 1-3 Total Bilirubin 0.50 mg/dL 0.2-1.0 Alkaline Phosphatase 49 U/L 34-104 Alt 10 U/L 7-52 Ast 15 U/L 13-39 Egfr Non- 109.3 >60 Egfr 140.6 >60 28 CBC Auto Diff 09/14/2016 White Blood Count 8.3 10^3/uL 3.5-10.8 Red Blood Count 5.01 10^6/uL 4.0-5.4 Hemoglobin 14.7 g/dL 12.0-16.0 Hematocrit 46 % 35-47 Mean Corpuscular Volume 91 fL 80-97 Mean Corpuscular Hemoglobin 30 pg 27-31 Mean Corpuscular HGB Conc 32 g/dL 31-36 Red Cell Distribution Width 14 % 10.5-15 Platelet Count 234 10^3/uL 150-450 Mean Platelet Volume 10 um3 7.4-10.4 Abs Neutrophils 5.4 10^3/uL 1.5-7.7 Abs Lymphocytes 2.2 10^3/uL 1.0-4.8 Abs Monocytes 0.4 10^3/uL 0-0.8 Abs Eosinophils 0.2 10^3/uL 0-0.6 Abs Basophils 0.1 10^3/uL 0-0.2 Abs Nucleated RBC 0.06 10^3/uL Granulocyte % 65.0 % 38-83 Lymphocyte % 26.0 % 25-47 Monocyte % 5.4 % 1-9 Eosinophil % 2.9 % 0-6 Basophil % 0.7 % 0-2 Nucleated Red Blood Cells % 0.8 Laboratory test finding 06/14/2015 Cytology SEE RESULT BELOW 29 Urine DIP 06/14/2015 Specific [place] 1.010 1.01-1.02 Urine pH 7 High 5-6 Leukocytes NEG Neg Urine Nitrites NEG Neg Total Protein, Urine NEG Neg Urine Glucose NORM Norm Urine Ketones NEG Neg Urobilinogen NORM Norm Urine Bilirubin NEG Neg Urine Blood NEG Neg Urine DIP 05/06/2015 Specific [place] 1.015 1.01-1.02 Urine pH 5 5-6 Leukocytes trace Neg Urine Nitrites neg Neg Total Protein, Urine neg Neg Urine Glucose norm Norm Urine Ketones neg Neg Urobilinogen 1 High Norm Urine Bilirubin neg Neg Urine Blood neg Neg Throat-Beta Strept 02/22/2015 Throat Beta Strep Culture (SEE NOTE) 30 Stool Culture 09/13/2014 Stool Culture (SEE NOTE) 31 Laboratory test finding 09/13/2014 O P: Giardia/Cryptospor Screen (SEE NOTE ) 32 E.coli O157:H7 Culture (SEE NOTE) 33 Urine DIP 10/31/2011 Leukocytes TRACE Neg Urine Nitrites NEG Neg Urine pH 5 5-6 Total Protein, Urine NEG Neg Urine Glucose NORM Norm Urine Ketones NEG Neg Urobilinogen NORM Norm Urine Bilirubin NEG Neg Urine Blood 250+ MENSES High Neg Specific [place] NA Low 1.01-1.02 CBC Auto Diff 04/10/2011 White Blood Count 7.7 CUMM 4.8-10.8 Red Cell Count 4.50 CUMM 4.2-5.4 Hemoglobin 13.4 g/dL 12.0-16.0 Hematocrit 40 % 35-47 Mean Corpuscular Volume 90 um3 79-97 Mean Corpuscular Hemoglob 30 pg 27-31 Mean Corpuscular HGB Cone 33 g/dL 32-36 Redcell Distribution WDTH 12 % 10.5-15 Platelet Count 235 CUMM 150-450 Mean Platelet Volume 8.6 um3 7.4-10.4 Gran % 51.5 % 38-83 Lymph % 37.4 % 25-47 Mononuclear % 8.2 % 1-9 Eosinophil % 2.4 % 0-6 Basophil % 0.5 % 0-2 Abs Lymphs 2.9 1.0-4.8 Abs Mononuclear 0.6 0-0.8 Absolute Neutrophil Count 4.0 1.5-7.7 Abs Eosinophils 0.2 0-0.6 Abs Basophils 0 0-0.2 Comp Metabolic Panel 04/10/2011 Sodium 140 mmol/L 135-145 Potassium 3.8 mmol/L 3.5-5.0 Chloride 106 mmol/L 101-111 Co2 (Carbon Dioxide) 27.0 mmol/L 22-32 Anion Gap 7.0 mmol/L 2-11 34 Glucose 89 mg/dL 70-100 BUN 16 mg/dL 6-24 Creatinine 0.60 mg/dL 0.50-1.40 One Over Creatinine 1.60 BUN/Creatinine Ratio 26.7 High 8-20 Calcium 9.4 mg/dL 8.1-9.9 Total Protein 6.9 GM/DL 6.2-8.1 Albumin 4.1 GM/DL 3.6-5.4 Globulin 2.8 GM/DL 2-4 Albumin/Globulin Ratio 1.5 1-3 Bilirubin Total 0.5 mg/dL 0.4-1.5 35 Alkaline Phosphatase 51 U/L 40-122 Alt (SGPT) 14 U/L 14-54 Ast (Sgot) 19 U/L 12-42 eGFR Non- 126.2 > 60 eGFR 162.3 > 60 36 Urinalysis W/Microscopic 04/10/2011 Ua Color YELLOW Yellow Appearance-Urine TURBID Clear Specific [place]-Ur 1.029 1.010-1.030 Esterase-Urine 2+ Negative Nitrite NEGATIVE Negative Rtwumlogdijc-Wd-HHK NEGATIVE Negative Protein-Urine TRACE Negative PH-Urine 7.5 5-9 Blood-Urine 2+ Negative Ketones-Urine NEGATIVE Negative Bilirubin-Ur NEGATIVE Negative Glucose-Urine NEGATIVE Negative WBC-Urine 5-10 0-5 RBC-Urine 0-2 0-2 Epith Cells-Ur FEW None Bacteria-Urine 3+ None Amorphous Sed-U 3+ None Urine Culture & 04/10/2011 Urine Culture SN1 37 Sensitivi Sensitivi Laboratory test finding 04/23/2009 Vitamin D, 25 Oh 39.1 ng/mL 32.0- 100.0 38 Laboratory test finding 02/11/2009 Vitamin D, 25 Oh 8.1 ng/mL Low 32.0- 100.0 39 Vitamin B-12 522 pg/mL 40 Laboratory test finding 12/31/2008 TSH (Thyrotropin) 1.840 uIU/ml 0.350- 5.500 WBC 8.7 x103 4.3-10.9 RBC 4.60 x106 3.80-5.30 Hemoglobin 13.9 g/dL 11.8-15.8 Hematocrit 42.4 % 35.0-47.0 MCV 92.2 fl 82.0-98.0 MCH 30.2 pg 27.5-33.5 MCHC 32.8 g/dL 32.0-36.0 RDW 13.3 % 11.5-14.5 Platelet Count 320 x103 130-400 MPV 10.8 fl High 6.5-10.5 Segmented Neutrophils 65.1 % 44.0-74.0 Lymphocytes 26.8 % 15.0-45.0 Monocytes 4.9 % 2.0-13.0 Eosinophils 2.9 % 0.0-6.0 Basophils 0.3 % 0.0-2.0 Neutrophil Absolute 5.7 x103 1.4-7.0 Lymphocytes Absolute 2.3 x103 1.0-3.4 Monocyte Absolute 0.4 x103 0.2-1.0 Eosinophil Absolute 0.3 x103 0.0-0.5 Basophil Absolute 0.0 x103 0.0-0.2 Glucose 80 mg/dL 70-100 BUN 7 mg/dL 4-18 Creatinine, Serum 0.8 mg/dL 0.6-1.2 Sodium 140 mmol/L 136-146 Potassium 4.0 mmol/L 3.5-5.3 Chloride 105 mmol/L 98-110 Carbon Dioxide 24 mmol/L 20-32 Albumin 4.2 g/dL 3.7-5.6 Protein, Total 6.9 g/dL 6.3-8.6 Calcium 9.2 mg/dL 8.9-10.7 Alkaline Phosphatase 53 U/L 50-130 Sgot (Ast) 22 U/L 5-30 SGPT (Alt) 17 U/L 5-35 Bilirubin, Total 0.20 mg/dL Low 0.30-1.20 T-4 Free 1.1 ng/dL 0.8-1.8 Vitamin D, 25 Oh 15.4 ng/mL Low 32.0-100.0 41 Vitamin B-12 281 pg/mL 42 Ferritin 16.1 ng/ml 10.0-291.0 GFR (Calculated) >60 43 Laboratory test finding 09/20/2007 Platelet Count 337 CUMM 150-450 Ebv Acute Infection Abs 09/12/2007 Ebna-1(Nuclear 3.41 INDEX Negative 44 , 45 Ag),Igg Ebv AB Vca, Igm 0.06 INDEX Negative 44, 46 Ebv Ea-D(Early Ag),Igg 0.87 INDEX Negative 44, 47 . Ebv Interpretation SEE COMMENT 44, 48 Ebv AB Vca, Igg 4.45 INDEX Negative 44, 49 CBC 09/11/2007 WBC 8.3 x103 4.3-10.9 RBC 4.63 x106 3.80-5.30 Hemoglobin 12.6 g/dL 11.8-15.8 Hematocrit 40.0 % 35.0-47.0 MCV 86.4 fl 82.0-98.0 MCH 27.2 pg Low 27.5-33.5 MCHC 31.5 g/dL Low 32.0-36.0 RDW 14.0 % 11.5-14.5 Platelet Count * x103 130-400 50 MPV 11.8 fl High 6.5-10.5 Segmented Neutrophils 67.0 % 44.0-74.0 Band 0.0 % 0.0-4.0 Lymphocytes 23.0 % 15.0-45.0 Monocytes 7.0 % 2.0-13.0 Eosinophils 3.0 % 0.0-6.0 Basophils 0.0 % 0.0-2.0 Neutrophil Absolute 5.6 x103 1.4-7.0 Lymphocytes Absolute 1.9 x103 1.0-3.4 Monocyte Absolute 0.6 x103 0.2-1.0 Eosinophil Absolute 0.2 x103 0.0-0.5 Basophil Absolute 0.0 x103 0.0-0.2 Platelet Clumps Slight Laboratory test finding 09/11/2007 TSH (Thyrotropin) 1.530 uIU/ml 0.350- 5.500 [place] Test NEGATIVE Comprehensive Metabolic 09/11/2007 Glucose 100 mg/dL 70-100 BUN 9 mg/dL 4-18 Creatinine, Serum 0.8 mg/dL 0.6-1.2 Sodium 139 mmol/L 136-146 Potassium 4.2 mmol/L 3.5-5.3 Chloride 107 mmol/L 98-110 Carbon Dioxide 22 mmol/L 20-32 Albumin 4.2 g/dL 3.7-5.6 Protein, Total 7.1 g/dL 6.3-8.6 Calcium 9.1 mg/dL 8.9-10.7 Alkaline Phosphatase 62 U/L 50-130 Sgot (Ast) 21 U/L 5-30 SGPT (Alt) 13 U/L 5-35 Bilirubin, Total 0.10 mg/dL Low 0.30-1.20 Laboratory test finding 09/11/2007 Ferritin 6.3 ng/ml Low 10.0-291.0 Monospot 09/20/2006 [place] Internal Control OKAY Monospot NEGATIVE Negative Laboratory test finding 09/20/2006 TSH 1.59 MIU/ML 0.34-5.60 Vitamin B12 368 pg/mL 180-914 Comp Metabolic Panel 09/20/2006 One Over Creatinine 1.66 Anion Gap 8.0 mmol/L 2-11 51 Albumin/Globulin Ratio 1.2 1-3 Albumin 3.7 GM/DL 3.6-5.4 Alkaline Phosphatase 76 U/L 40-122 Alt (SGPT) 13 U/L Low 14-54 Ast (Sgot) 22 U/L 12-42 BUN 5 mg/dL Low 6-24 Calcium 9.4 mg/dL 8.7-10.2 Chloride 103 mmol/L 101-111 Co2 (Carbon Dioxide) 26.0 mmol/L 22-32 Globulin 3.2 GM/DL 2-4 Glucose 109 mg/dL High 70-105 Potassium 4.4 mmol/L 3.5-5.0 Sodium 137 mmol/L 135-145 Bilirubin Total 0.3 mg/dL Low 0.4-1.5 Total Protein 6.9 GM/DL 6.2-8.1 BUN/Creatinine Ratio 8.3 8-20 Creatinine 0.6 mg/dL 0.5-1.4 Laboratory test finding 09/20/2006 Ferritin < 10 NG/ML Low 11.0-307 CBC With Electronic Diff 09/20/2006 White Blood Count 9.6 CUMM 4.8-10.8 Abs Basophils 0 0-0.2 Abs Eosinophils 0.2 0-0.6 Absolute Neutrophil Count 6.9 1.5-7.7 Abs Lymphs 2.0 1.0-4.8 Abs Mononuclear 0.5 0-0.8 Basophil % 0.4 % 0-2 Hematocrit 35 % 35-47 Hemoglobin 11.4 g/dL Low 12.0-16.0 Eosinophil % 2.4 % 0-6 Gran % 71.4 % 38-83 Lymph % 20.4 % 20-45 Mean Corpuscular HGB Cone 33 g/dL 32-36 Mean Corpuscular Hemoglob 25 pg Low 27-31 Mean Corpuscular Volume 76 um3 Low 79-97 Mean Platelet Volume 8.3 um3 7.4-10.4 Mononuclear % 5.4 % 1-9 Platelet Count 391 CUMM 150-450 Red Cell Count 4.62 CUMM 4.2-5.4 Redcell Distribution WDTH 17 % High 10.5-15 Laboratory test finding 08/09/2005 Strep Screen neg Neg 1 1025-A:Morphology: irregular brown macule;DDX: Dysplastic Nevus;Location: right proximal upper ar 2 SEE RESULT BELOW Name: JERZY RAMOS : [address]: Edith Gimenez MD Acct: [id number] Unit: [id number] AGE: 27 Location: [facility] Re02/06/18 SEX: F Status: REG REF SPEC: [id number] JASMIN: 02/06/18- SUBM DR: Edith Gimenez MD REQ: [id number] RECD: 02/06/181354 STATUS: JEAN HERNANDEZ DR: Lisa Mtz MD _ ORDERED: LEVEL 4 COMMENTS: [id number] FINAL DIAGNOSIS Skin, right proximal upper arm, biopsy: -- Solar lentigo. PRE-OPERATIVE DIAGNOSIS Irregular brown macule; dysplastic nevus GROSS DESCRIPTION The specimen is received in formalin labeled, Right Proximal Upper Arm, and consists of a 0.7 x 0.5 cm callejas hairbearing irregular skin shave with a central 0.2 x 0.1 cm brown macule. The specimen is inked, bisected and submitted entirely in one cassette. Signed (signature on file) Melania Meneses MD 0929 END OF REPORT DEPARTMENT OF PATHOLOGY, [address] [place] [address] Tip Yao M.D. Director [facility] # [id number] Normal Range 180 to 914 Indeterminate Range 145 to 180 Deficient Range <145 6 Because ethnic data is not always readily available, this report includes an eGFR for both -Americans and non- Americans. The National Kidney Disease Education Program (NKDEP) does not endorse the use of the MDRD equation for patients that are not between the ages of 18 and 70, are , have extremes of body size, muscle mass, or nutritional status, or are non- or non-. According to the National Kidney Foundation, irrespective of diagnosis, the stage of the disease is based on the level of kidney function: Stage Description GFR(mL/min/1.73 m(2)) 1 Kidney damage with normal or decreased GFR 90 2 Kidney damage with mild decrease in GFR 60-89 3 Moderate decrease in GFR 30-59 4 Severe decrease in GFR 15-29 5 Kidney failure <15 (or dialysis) 7 No bands detected 8 No bands detected 9 Specific serologic response to B. burgdorferi infection is not detected, but cannot rule out early infection during which low or undetectable antibody levels to B. burgdorferi may be present. If clinically indicated, a new serum specimen should be submitted in 7-14 days. ADDITIONAL INFORMATION CDC criteria require >=5 bands for IgG or >=2 bands for IgM for the Immunoblot to be considered positive. Bands (e.g.,p41) may be detected in patients without Lyme disease, and patterns not meeting the CDC criteria should be interpreted with caution. Immunoblot should be ordered only on specimens that are positive or equivocal by a FDA-licensed Lyme disease antibody screening test (e.g., EIA). Test Performed by: [facility] - [address] [address] 10 ADDITIONAL INFORMATION This test was developed and its performance characteristics determined by [facility] in a manner consistent with CLIA requirements. This test has not been cleared or approved by the U.S. Food and Drug Administration. 11 ADDITIONAL INFORMATION This test was developed and its performance characteristics determined by [facility] in a manner consistent with CLIA requirements. This test has not been cleared or approved by the U.S. Food and Drug Administration. 12 ADDITIONAL INFORMATION This test was developed and its performance characteristics determined by [facility] in a manner consistent with CLIA requirements. This test has not been cleared or approved by the U.S. Food and Drug Administration. Test Performed by: [address] [address] 13 Embedded Linux Engineer: [id number] Normal Range 180 to 914 Indeterminate Range 145 to 180 Deficient Range <145 15 [id number] Normal Range 180 to 914 Indeterminate Range 145 to 180 Deficient Range <145 19 [id number] 20 [id number] 21 It is recognized that currently available assays for the detection of antibodies to HIV-1 and/or HIV-2 may not detect all infected individuals. HIV antibodies may be undetectable in some stages of the infection and in some clinical conditions. The performance of this assay has not been established for populations of infants or children. Assayed by Chemiluminescence Microparticle Immunoassay on the Siemens Advia Centaur CP. Values obtained with different methods or kits cannot be used interchangeably.The diagnostic specificity of the ADVIA Centaur 1/O/2 Enhanced assay in the low risk population was 99.90% (6052/6058) with a 95% confidence interval of 99.78 to 99.96%. 22 Warning: A positive result is not useful for establishing a diagnosis of syphilis. In most situations, such a result may reflect a prior treated infection; a negative result can exclude a diagnosis of syphilis except for incubating or early primary disease. 23 SEE RESULT BELOW Name: SAMIBESSVIRGINIAParveen Hair : [address]: Lisa Mtz MD Acct: [id number] Unit: [id number] AGE: 26 Location: [facility] Re09/14/16 SEX: F Status: REG REF SPEC: [id number] JASMIN: 09/14/161148 [facility] DR: Lisa Mtz MD REQ: [id number] RECD: 09/14/16 STATUS: SOUT _ ORDERED: IMAGE ANALYSIS COMMENTS: [id number] FINAL DIAGNOSIS Negative for Intraepithelial lesion or Malignancy A. Ectocervical/Endocervical Specimen Adequacy: Satisfactory of evaluation Transformation zone component identified Patient Information: HPV: Thin Layer Pap Test w/reflex to high risk HPV RNA testing when ASCUS Actual Specimen Date: 09/14/16 Last Menstrual Date: 08/30/16 Date of Last Specimen: 06/14/15 ?: N Post Menopausal?: N Hysterectomy?: N Previous Abnormal Pap Smears?:N Signed (signature on file) BEATRICE Holland(ASCP) 09/15 1246 This Pap test was evaluated with the assistance of the GrataPrep Test Imaging System. Due to cytologic findings at the metal products fabricator assembler microscope, comprehensive manual rescreening by a Ukrainian Folk Arts Instructor may be required. The Pap Smear is a screening test designed to aid in the detection of premalignant and malignant conditions of the uterine cervix. It is not a diagnostic procedure and should not be used as the sole means of detecting cervical cancer. Both false- positive and false- negative reports do occur. Depending on your risk status, a Pap smear should be obtained and evaluated every 1-3 years. END OF REPORT * ML=Testing performed at Main Lab DEPARTMENT OF PATHOLOGY, [address] [place] [address] Tip Yao M.D. Director [facility] # [id number] Desirable <150 Borderline high 150-199 High 200-499 Very High >500 25 Desirable <200 Borderline high 200-239 High >239 26 Low <40 Desirable: 40-60 High: >60 27 Desirable: <100 mg/dL Near Optimal: 100-129 mg/dL Borderline High: 130-159 mg/dL High: 160-189 mg/dL Very High: >189 mg/dL 28 Because ethnic data is not always readily available, this report includes an eGFR for both -Americans and non- Americans. The National Kidney Disease Education Program (NKDEP) does not endorse the use of the MDRD equation for patients that are not between the ages of 18 and 70, are , have extremes of body size, muscle mass, or nutritional status, or are non- or non-. According to the National Kidney Foundation, irrespective of diagnosis, the stage of the disease is based on the level of kidney function: Stage Description GFR(mL/min/1.73 m(2)) 1 Kidney damage with normal or decreased GFR 90 2 Kidney damage with mild decrease in GFR 60-89 3 Moderate decrease in GFR 30-59 4 Severe decrease in GFR 15-29 5 Kidney failure <15 (or dialysis) 29 SEE RESULT BELOW Name: JERZY RAMOS : [address]: Ritesh Kemp NP Acct: [id number] Unit: [id number] AGE: 24 Location: [facility] Re06/14/15 SEX: F Status: REG REF SPEC: [id number] JASMIN: 06/14/15-924 [facility] DR: Ritesh Kemp NP REQ: [id number] RECD: 06/14/15 STATUS: SOUT _ ORDERED: IMAGE ANALYSIS, HPV 16/18 GENE PAP results are negative. No HPV results for this case. Addendum Signed (signature on file) Lalitha Whitt 06/15/15 1437 FINAL DIAGNOSIS Negative for Intraepithelial lesion or Malignancy A. Ectocervical/Endocervical Specimen Adequacy: Satisfactory of evaluation Transformation zone component identified Patient Information: HPV: Thin Layer Pap Test w/reflex to high risk HPV RNA testing when ASCUS HPV 16/18 Genotype for HPV pos Actual Specimen Date: 06/14/15 Last Menstrual Date: 06/05/15 No results available. Signed (signature on file) Lalitha Jose Eduardo 06/15/15 1434 This Pap test was evaluated with the assistance of the GrataPrep Test Imaging System. Due to cytologic findings at the metal products fabricator assembler microscope, comprehensive manual rescreening by a Ukrainian Folk Arts Instructor may be required. The Pap Smear is a screening test designed to aid in the detection of premalignant and malignant conditions of the uterine cervix. It is not a diagnostic procedure and should not be used as the sole means of detecting cervical cancer. Both false- positive and false- negative reports do occur. Depending on your risk status, a Pap smear should be obtained and evaluated every 1-3 years. END OF REPORT * ML=Testing performed at Main Lab DEPARTMENT OF PATHOLOGY, [facility] [place], [place] [address] Tip Yao M.D. Director [facility] # [id number] RUN DATE: 02/24/15 [facility] LAB LIVE PAGE 1 RUN TIME: 0804 [facility] [place] [place], [place] [address] Specimen Inquiry Name: JERZY RAMOS : [address]: Naldo Cartwright MD Acct: [id number] Unit: [id number] AGE: 24 Location: [facility] Re02/22/15 SEX: F Status: DEP ER SPEC: [id number] JASMIN: 02/22/15-1115 [facility] DR: Naldo Cartwright MD REQ: [id number] RECD: 02/22/15 STATUS: KEV HERNANDEZ DR: Lisa Mtz MD _ SOURCE: THROAT SPDESC: ORDERED: Throat Beta Str Procedure Result Verified Site Throat Beta Strep Culture Final 02/24/15- 0804 ML Negative For Group A Beta Streptococcus * ML - MAIN LAB ([facility]) . END OF REPORT * ML=Testing performed at Main Lab DEPARTMENT OF PATHOLOGY, [facility] [place], [place] [address] Tip Yao M.D. Director [facility] # [id number] RUN DATE: 09/14/14 [facility] LAB LIVE PAGE 1 RUN TIME: 1337 [facility] [place], [place] [address] Specimen Inquiry Name: JERZY RAMOS : [address]: Christy Spivey MD Acct: [id number] Unit: [id number] AGE: 24 Location: [facility] Re09/12/14 SEX: F Status: DEP ER SPEC: [id number] JASMIN: 09/13/14 [facility] DR: Christy Spivey MD REQ: [id number] RECD: 09/13/14123 STATUS: RES SHILPA DR: Lisa Mtz MD _ SOURCE: STOOL SPDESC: ORDERED: E.coli O157:H7, Stool Culture, C. diff Amp DNA, O P: Giar/Crypt Procedure Result Verified Site E.coli O157:H7 Culture PENDING Stool Culture PENDING Stool Specimen Description Final 09/13/14- 1315 ML Stool Color Red Stool Form Nonformed Stool Consistency Mucoid Shiga Toxin 1 2 Final 09/14/14- 1337 ML Organism 1 Negative Shiga Toxin 1 2 Immunochromatographic Assay C. difficile Amplified DNA Final 09/13/14- 1433 ML Organism 1 Neg: No C. difficile detected Assay tests for toxigenic C. difficile with Pathogen Locus (PALOC) TEST LIMITATIONS: Assay does not distinguish between viable and nonviable organisms. Test results are to be used in conjunction with information available from the patient clinical evaluation and other diagnostic procedures. Two distinct groups have been identified that can harbor C. difficile asymptomatically at very high rates. Colonization at rates CONTINUED ON NEXT PAGE * ML=Testing performed at Main Lab DEPARTMENT OF PATHOLOGY, [facility] [place], [place] [address] Tip Yao M.D. Director [facility] # [id number] RUN DATE: 09/14/14 [facility] LAB LIVE PAGE 2 RUN TIME: 9123 [facility] [place], [place] [address] Specimen Inquiry Patient: JERZY RAMOS [id number] (Continued) Specimen: [id number] Collected: 09/13/14 Received: 09/13/14 (Continued) Procedure Result Verified Site C. difficile Amplified DNA Final (continued) 09/13/14 2164 up to 50% and higher have been reported in infants and rates up to 32% in cystic fibrosis patients. O P: Giardia/Cryptospor Screen PENDING END OF REPORT * ML=Testing performed at Main Lab DEPARTMENT OF PATHOLOGY, [facility] [place], [place] [address] Tip Yao M.D. Director [facility] # [id number] RUN DATE: 09/14/14 [facility] LAB LIVE PAGE 1 RUN TIME: 1413 [facility] [place], [place] [address] Specimen Inquiry Name: JERZY RAMOS : [address]: Christy Spivey MD Acct: [id number] Unit: [id number] AGE: 24 Location: [facility] Re09/12/14 SEX: F Status: DEP ER SPEC: [id number] JASMIN: 09/13/1446 [facility] DR: Christy Spivey MD REQ: [id number] RECD: 09/13/147 STATUS: RES SHILPA DR: Lisa Mtz MD _ SOURCE: STOOL SPDESC: ORDERED: E.coli O157:H7, Stool Culture, C. diff Amp DNA, O P: Giar/Crypt Procedure Result Verified Site E.coli O157:H7 Culture PENDING Stool Culture PENDING Stool Specimen Description Final 09/13/14- 1315 ML Stool Color Red Stool Form Nonformed Stool Consistency Mucoid Shiga Toxin 1 2 Final 09/14/14- 1337 ML Organism 1 Negative Shiga Toxin 1 2 Immunochromatographic Assay C. difficile Amplified DNA Final 09/13/14- 1433 ML Organism 1 Neg: No C. difficile detected Assay tests for toxigenic C. difficile with Pathogen Locus (PALOC) TEST LIMITATIONS: Assay does not distinguish between viable and nonviable organisms. Test results are to be used in conjunction with information available from the patient clinical evaluation and other diagnostic procedures. Two distinct groups have been identified that can harbor C. difficile asymptomatically at very high rates. Colonization at rates CONTINUED ON NEXT PAGE * ML=Testing performed at Main Lab DEPARTMENT OF PATHOLOGY, [facility] [place] [place], [place] [address] Tip Yao M.D. Director [facility] # [id number] RUN DATE: 09/14/14 [facility] LAB LIVE PAGE 2 RUN TIME: 9805 [facility] [place], [place] [address] Specimen Inquiry Patient: JERZY RAMOS [id number] (Continued) Specimen: [id number] Collected: 09/13/14 Received: 09/13/14 (Continued) Procedure Result Verified Site C. difficile Amplified DNA Final (continued) 09/13/14- 1432 up to 50% and higher have been reported in infants and rates up to 32% in cystic fibrosis patients. O P: Giardia/Cryptospor Screen Final 09/14/141412 ML Organism 1 Neg Cryptosporidium/Giardia Giardia and cryptosporidium antigen testing performed by enzyme immunoassay. If patient is immunocompromised or has traveled to or is from a developing country, a full ova and parasite exam with microscopic (OPMIC) is recommended. All samples will be held one month in case full ova and parasite testing is requested. Contact the Microbiology Department at [phone]. TEST LIMITATIONS: As with all diagnostic procedures, the results obtained should be used in conjunction with other clinical information available the physician, including confirmation by another method. Negative results can occur in samples containing antigen below lower limits of detection of the assay. One negative specimen does not rule out the possibility of a parasitic infection. To improve detection it is recommended that three specimens be collected on separate days over a period of not more than seven days. The use of colonic washes, aspirates or other diluted sample types has not been established and could affect the performance of the assay. Stool samples contaminated with an oily or particulate base (eg. Barium, mineral oil etc.) could interfere with the test and are not recommended. END OF REPORT * ML=Testing performed at Main Lab DEPARTMENT OF PATHOLOGY, [facility] [place], [place] [address] Tip Yao M.D. Director [facility] # [id number] RUN DATE: 09/15/14 [facility] LAB LIVE PAGE 1 RUN TIME: 1030 [facility] [place], [place] [address] Specimen Inquiry Name: JERZY RAMOS : [address]: Christy Spivey MD Acct: [id number] Unit: [id number] AGE: 24 Location: [facility] Re09/12/14 SEX: F Status: DEP ER SPEC: [id number] JASMIN: 09/13/14 [facility] DR: Christy Spivey MD REQ: [id number] RECD: 09/13/14 STATUS: KEV HERNANDEZ DR: Lisa Mtz MD _ SOURCE: STOOL [facility]: ORDERED: E.coli O157:H7, Stool Culture, C. sheng Amp DNA, O P: Giar/Crypt Procedure Result Verified Site E.coli O157:H7 Culture Final 09/15/14- 1030 ML E. coli 0157 Culture Negative Stool Culture Final 09/15/14- 1030 ML Result No enteric pathogens isolated Testing for Salmonella, Shigella, Aeromonas, Plesiomonas, Yersinia and Campylobacter are included in a Stool Culture. Vibrio spp not routinely tested for in a stool culture. If testing is desired, please request specifically when placing test order. Sensitivities not routinely performed on stool isolates, as antibiotics may prolong the carriage rate of bacteria. Please contact the microbiology lab if sensitivities are required. Stool Specimen Description Final 09/13/14- 1315 ML Stool Color Red Stool Form Nonformed Stool Consistency Mucoid Shiga Toxin 1 2 Final 09/14/14- 1337 ML Organism 1 Negative Shiga Toxin 1 2 CONTINUED ON NEXT PAGE * ML=Testing performed at Main Lab DEPARTMENT OF PATHOLOGY, [facility] [place], [place] [address] Tip Yao M.D. Director [facility] # [id number] RUN DATE: 09/15/14 [facility] LAB LIVE PAGE 2 RUN TIME: 1030 [facility] [place], [place] [address] Specimen Inquiry Patient: VIRGINIA RAMOSA [id number] (Continued) Specimen: [id number] Collected: 09/13/14 Received: 09/13/14-1230 (Continued) Procedure Result Verified Site Shiga Toxin 1 2 Final (continued) 09/14/14- 1337 Immunochromatographic Assay C. difficile Amplified DNA Final 09/13/14- 1433 ML Organism 1 Neg: No C. difficile detected Assay tests for toxigenic C. difficile with Pathogen Locus (PALOC) TEST LIMITATIONS: Assay does not distinguish between viable and nonviable organisms. Test results are to be used in conjunction with information available from the patient clinical evaluation and other diagnostic procedures. Two distinct groups have been identified that can harbor C. difficile asymptomatically at very high rates. Colonization at rates up to 50% and higher have been reported in infants and rates up to 32% in cystic fibrosis patients. O P: Giardia/Cryptospor Screen Final 09/14/14- 1413 ML Organism 1 Neg Cryptosporidium/Giardia Giardia and cryptosporidium antigen testing performed by enzyme immunoassay. If patient is immunocompromised or has traveled to or is from a developing country, a full ova and parasite exam with microscopic (OPMIC) is recommended. All samples will be held one month in case full ova and parasite testing is requested. Contact the Microbiology Department at [phone]. TEST LIMITATIONS: As with all diagnostic procedures, the results obtained should be used in conjunction with other clinical information available the physician, including confirmation by another method. Negative results can occur in samples CONTINUED ON NEXT PAGE * ML=Testing performed at Main Lab DEPARTMENT OF PATHOLOGY, [facility] [place], [place] [address] Tip Yao M.D. Director [facility] # [id number] RUN DATE: 09/15/14 [facility] LAB LIVE PAGE 3 RUN TIME: [address] [place] [id number] Specimen Inquiry Patient: JERZY RAMOS [id number] (Continued) Specimen: [id number] Collected: 09/13/14 Received: 09/13/14 (Continued) Procedure Result Verified Site O P: Giardia/Cryptospor Screen Final (continued) 09/14/141412 containing antigen below lower limits of detection of the assay. One negative specimen does not rule out the possibility of a parasitic infection. To improve detection it is recommended that three specimens be collected on separate days over a period of not more than seven days. The use of colonic washes, aspirates or other diluted sample types has not been established and could affect the performance of the assay. Stool samples contaminated with an oily or particulate base (eg. Barium, mineral oil etc.) could interfere with the test and are not recommended. END OF REPORT * ML=Testing performed at Main Lab DEPARTMENT OF PATHOLOGY, [address] [place] [address] Tip Yao M.D. Director [facility] # [id number] 34 Anion gap measurement may be of limited value in the presence of any alkalosis, especially in a combined acid base disorder. . 35 A metabolite of Naproxen, O-desmethylnaproxen, has been shown to interfere with the Jendrassik-Clay method for measuring total bilirubin. Samples from patients who have taken Naproxen have shown spurious elevation in total bilirubin levels. 36 Because ethnic data is not always readily available, this report includes an eGFR for both -Americans and non- Americans. The National Kidney Disease Education Program (NKDEP) does not endorse the use of the MDRD equation for patients that are not between the ages of 18 and 70, are , have extremes of body size, muscle mass, or nutritional status, or are non- or non-. According to the National Kidney Foundation, irrespective of diagnosis, the stage of the disease is based on the level of kidney function: Stage Description GFR(mL/min/1.73 m(2)) 1 Kidney damage with normal or decreased GFR 90 2 Kidney damage with mild decrease in GFR 60-89 3 Moderate decrease in GFR 30-59 4 Severe decrease in GFR 15-29 5 Kidney failure <15 (or dialysis) 37 SCANT NORMAL URETHRAL OR PERINEAL TELMA 38 Recent studies consider the lower limit of 32.0 ng/mL to be a threshold for optimal health. Fred ALLEN. J Nutr. 2005 Dec;135(2):317-22. 39 Recent studies consider the lower limit of 32.0 ng/mL to be a threshold for optimal health. Fred ALLEN. J Nutr. 2005 Dec;135(2):317-22. 40 Greater than or equal to 211 is normal. . 41 Recent studies consider the lower limit of 32.0 ng/mL to be a threshold for optimal health. Fred ALLEN. J Nutr. 2005 Dec;135(2):317-22. 42 Greater than or equal to 211 is normal. . 43 mL/min/1.73m2 . Normal Function or Mild Renal Disease, if clinically at risk: >or=60 Moderately decreased: 30 - 59 Severely decreased: 15 - 29 Renal Failure: <15 . Please note that the MDRD equation requires an additional adjustment for -Americans (multiply the GFR result by 1.210). . Glomerular Filtration Rate (GFR) is estimated based on the MDRD equation, which assumes a steady state for creatinine (Rosetta Int Med 139/2 137-149, 2002), as recommended by the National Kidney Disease Education Program in conjunction with the National Institutes of Health and the National Kidney Foundation. . Clinical conditions in which it may be necessary to measure GFR by using clearance methods include extremes of age and body size, severe malnutrition or obesity, diseases of skeletal muscle, paraplegia or quadriplegia, vegetarian diet, rapidly changing kidney function, and calculation of the dose of potentially toxic drugs that are excreted by the kidneys. 44 Specimen from 09-11-07 add to [id number] 45 < or=0.90 Negative 0.91 - 1.09 Indeterminate > or=1.10 Positive 46 < or=0.90 Negative 0.91 - 1.09 Indeterminate > or=1.10 Positive 47 < or=0.90 Negative 0.91 - 1.09 Indeterminate > or=1.10 Positive 48 Acute Convalescent Chronic or Old Susceptible Infection Phase Reactivated Infection EBNA - - + + - + VCA-IgG - + - + + + - VCA-IgM - + + - - - EA-IgG - + - + - + - Tamez: + Antibody Present - Antibody Absent + - Antibody Present or Absent 49 < or=0.90 Negative 0.91 - 1.09 Indeterminate > or=1.10 Positive 50 (Unable to give Plt count due to Plt clumping.) 51 Anion gap measurement may be of limited value in the presence of any alkalosis, especially in a combined acid base disorder. . Procedures Date CPT Code Description Status 01/12/2010 22616 EKG, at Least 12 Leads w/Interpretation and Report Completed 06/22/2009 65807 Therapeutic,Prophylactic,Or Diagnostic Inj,SC/Im Completed Specify Drug 04/23/2009 88527 Therapeutic,Prophylactic,Or Diagnostic Inj,SC/Im Completed Specify Drug 03/04/2009 86069 Therapeutic,Prophylactic,Or Diagnostic Inj,SC/Im Completed Specify Drug 01/28/2009 03192 Therapeutic,Prophylactic,Or Diagnostic Inj,SC/Im Completed Specify Drug 01/21/2009 43965 Therapeutic,Prophylactic,Or Diagnostic Inj,SC/Im Completed Specify Drug 01/14/2009 48059 Therapeutic,Prophylactic,Or Diagnostic Inj,SC/Im Completed Specify Drug 01/07/2009 83088 Therapeutic,Prophylactic,Or Diagnostic Inj,SC/Im Completed Specify Drug 08/25/2008 96444 Nebulizer Treatment Completed 09/06/2007 36129 Multiple Allergy Shot Administrat Completed 2007 05965 Multiple Allergy Shot Administrat Completed 07/26/2007 71142 Multiple Allergy Shot Administrat Completed 07/12/2007 88368 Multiple Allergy Shot Administrat Completed 06/20/2007 19364 Multiple Allergy Shot Administrat Completed 06/20/2007 35233 Allergy Shot Administration Completed 06/06/2007 47464 Multiple Allergy Shot Administrat Completed 05/28/2007 29384 Multiple Allergy Shot Administrat Completed 05/21/2007 62506 Multiple Allergy Shot Administrat Completed 05/14/2007 45042 Multiple Allergy Shot Administrat Completed 02/26/2007 77151 Multiple Allergy Shot Administrat Completed 02/26/2007 71638 Allergy Shot Administration Completed 01/17/2007 67154 Multiple Allergy Shot Administrat Completed 01/01/2007 58980 Multiple Allergy Shot Administrat Completed 12/18/2006 02678 Multiple Allergy Shot Administrat Completed 12/04/2006 49969 Multiple Allergy Shot Administrat Completed 12/04/2006 47444 Allergy Shot Administration Completed 10/22/2006 39106 Multiple Allergy Shot Administrat Completed 10/15/2006 90171 Multiple Allergy Shot Administrat Completed 10/02/2006 83482 Multiple Allergy Shot Administrat Completed 09/10/2006 59475 Multiple Allergy Shot Administrat Completed 09/03/2006 67074 Multiple Allergy Shot Administrat Completed 09/03/2006 27769 Allergy Shot Administration Completed 08/27/2006 62409 Multiple Allergy Shot Administrat Completed 08/13/2006 11470 Multiple Allergy Shot Administrat Completed 08/13/2006 51139 Allergy Shot Administration Completed 08/06/2006 45407 Multiple Allergy Shot Administrat Completed 07/30/2006 21213 Multiple Allergy Shot Administrat Completed 07/30/2006 58969 Allergy Shot Administration Completed 07/24/2006 17669 Multiple Allergy Shot Administrat Completed 07/16/2006 96316 Multiple Allergy Shot Administrat Completed 07/09/2006 96951 Multiple Allergy Shot Administrat Completed 07/02/2006 78874 Multiple Allergy Shot Administrat Completed 06/25/2006 41090 Multiple Allergy Shot Administrat Completed Encounters Type Date Location Provider CPT E/M Dx Office Visit 05/07/2018 9:00a [facility], [address] 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 83064 Z00.01 R53.83 Z13.220 Z11.3 L20.9 E61.1 Office Visit 07/20/2016 8:45a [place] [address] M53.3 Office Visit 06/29/2016 3:30p Main Office Ritesh Kemp MAINTENANCE REPAIRER-C 94112 K11.9 Office Visit 03/30/2016 11:15a Main Office Ritesh Kemp MAINTENANCE REPAIRER-C 97837 R10.9 K58.0 Office Visit 06/14/2015 8:45a Main Office Ritesh Kemp MAINTENANCE REPAIRER-C 16608 V70.0 Office Visit 05/06/2015 9:30a Main Office Lisa Mtz M.D. 74028 724.5 Office Visit 05/19/2014 2:15p Main Office Ritesh Kemp MAINTENANCE REPAIRER-C 85005 892.0 V06.1 Office Visit 04/10/2014 10:45a Main Office Kayla Gentile M.D. 40524 465.8 Office Visit 11/13/2013 10:30a Main Office Ritesh Carlos ManuelDenise Kemp [facility] 83097 691.8 300.00 Office Visit 11/28/2012 11:45a Main Office Lisa Mtz M.D. 84042 300.00 V03.89 Office Visit 10/31/2011 8:00a Main Office France Moreno [facility] 21029 V70.0 Office Visit 10/09/2011 10:30a Main Office Ritesh Kemp [facility] 37092 296.35 728.85 Office Visit 07/27/2011 11:00a Main Office Rosalina Encarnacion M.D., R.Jada 90131 461.0 Office Visit 07/07/2011 3:15p Main Office Ritesh Kemp [facility] 42429 296.35 Office Visit 06/22/2011 9:45a Main Office Ritesh Kemp [facility] 37988 296.35 Office Visit 07/09/2010 11:45a Main Office Lisa Mtz M.D. 95748 461.0 Office Visit 06/27/2010 2:00p Main Office VIRGINIE Black-Laxmi 98648 789.9 575.0 Office Visit 01/12/2010 2:30p Main Office Ritesh Kemp [facility] 08568 784.0 786.59 786.50 300.00 Office Visit 12/15/2009 2:45p Main Office Kayode RiosN.P.CDenise 96114 486 Office Visit 09/27/2009 3:45p Main Office Ritesh Kemp [facility] 50566 466.0 Office Visit 08/03/2009 4:45p Main Office Lisa Mtz M.D. 34024 466.0 Office Visit 12/31/2008 12:15p Main Office Lisa Mtz M.D. 09606 780.79 465.9 Office Visit 10/21/2008 2:45p Main Office Kayode RiosN.P.CDenise 26946 625.3 Office Visit 08/31/2008 9:15a Main Office Ritesh Kemp [facility] 94539 466.0 Office Visit 08/28/2008 2:00p Main Office Ritesh Kemp, [facility] 92248 466.0 Office Visit 08/25/2008 3:15p Main Office Ritesh Kemp [facility] 03215 466.0 Office Visit 06/01/2008 10:00a Main Office Cherelle Cheung F.N.P.C. 25968 724.5 Office Visit 05/28/2008 11:30a Main Office Cherelle Cheung F.N.P.C. 34515 724.5 Office Visit 03/03/2008 1:45p Main Office Ritesh Kemp [facility] 59105 465.9 Office Visit 12/30/2007 10:15a Main Office Lisa Mtz M.D. 79259 780.52 625.3 309.0 Office Visit 09/11/2007 1:15p Main Office Lisa Mtz M.D. 52529 780.79 280.8 Office Visit 07/24/2007 1:15p Main Office Dorian Rios.N.P.C. 98300 465.9 Office Visit 05/21/2007 3:00p Main Office Lisa Mtz M.D. 23051 V07.1 682.3 Office Visit 05/21/2007 3:30p Main Office Lisa Mtz M.D. 21813 V07.1 682.3 Office Visit 10/29/2006 9:45a Main Office Lisa Mtz M.D. 42629 280.8 729.5 477.9 780.79 Office Visit 09/18/2006 2:30p Main Office Lisa Mtz M.D. 84698 780.79 995.3 Office Visit 05/09/2006 11:00a Main Office Lisa Mtz M.D. 70312 V20.2 Office Visit 02/22/2006 10:00a Main Office Dorian Rios.N.P.C. 55003 079.99 372.30 786.2 Office Visit 08/09/2005 3:15p Main Office Wilfredo Ambrose M.D. 16158 465.9 Office Visit 07/17/2005 1:45p Main Office Lisa Mtz M.D. 32618 477.9 706.1 Office Visit 04/18/2005 3:30p Main Office Lisa Mtz M.D. 42890 V20.2 783.1 309.9 Office Visit 01/17/2005 4:00p Main Office Lisa Mtz M.D. 69388 465.9 Office Visit 07/22/2004 4:30p Main Office France Menendez M.D. 64829 477.9 Office Visit 09/01/2003 10:15a Main Office Vanessa Rios 99505 V20.2 Plan of Care Future Appointment(s):07/04/2018 9:30 am - Lisa Mtz M.D. at Main [place]/30/2018 - Preston Whitley MDF40.241 AcrophobiaNew Medication: Propranolol HCL 10 mgComments:She has a fear of heights that occasionally interferes with her ability to do certain things. We discussed ways of getting around this-exposure therapy is probably going to be the most effective. We discussed spending a lot of time in safe elevated places like glass elevators.This process could be greatly accelerated with the use of a beta rangel.she will give it a try, if there are untoward side effects she will do it unassisted.
[2018-06-27] MEDS ORDERED: Iohexol 350* (CONTRAST) 500 ML MDV IV ONE (19:52)
[2018-06-27] MEDS ORDERED: Rivaroxaban TAB(*) 15 MG PO ONE (20:35)
[2018-06-27] MEDS ORDERED: Ondansetron ODT TAB* 4 MG PO PRN (20:47)
[2018-06-27] MEDS ORDERED: ALPRAZolam TAB* 0.25 MG PO PRN ×2 (20:47→22:17)
[2018-06-27] MEDS ORDERED: Melatonin 3 MG TAB PO PRN (20:47)
[2018-06-27] MEDS ORDERED: Acetaminophen TAB* 325 MG PO PRN (20:47)
[2018-06-27 20:55] LABS: INR 0.98 (0.77-1.02)
[2018-06-27] MEDS ORDERED: NS 0.9% 1000 ML* 1,000 ML IV SCH (21:00)
--- NOTE | 2018-06-27 21:13 | HP ---
H&P (Free Text) History and Physical: PCP: Montserrat Mtz MD Date/Time: 06/27/20182029 CC: SOB HPI: Mrs Gifford is a 27YO non-smoking obese female on oral control who returned via car from a trip to [place] last Sunday. She reports feeling suddenly SOB the before returning while walking along the street. She attributed it to altitude sickness and anxiety/panic. During the drive home she reports stopping to get out of the car every 1.5 to 2 hours. She has had a dull aching in the mid-chest with deep inspiration and noticed she has increased SOB while speaking more than a couple of sentences. She denies and LE swelling or tenderness. There is no family HX of bleeding disorders or DVT/PE. She was not feeling any better today while at work and decided to present to urgent care who referred her to [facility] for further evaluation where d-dimer was >1050 and CTA chest is positive for B pulmonary emboli. She has taken long car rides in the past without issues. The only notable difference this time is the addition of oral contraception. Her pap smear is up to date, no HX cancer. 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 FamHx: Father: alive w/ HTN; Mother: HX splenectomy for unclear reasons ROS: as above, otherwise reviewed and all were negative vitals: Vital Signs Temp 37.1 C 06/27/18 18:31 Pulse 94 06/27/18 21:16 Resp 17 06/27/18 21:16 BP 116/70 06/27/18 21:16 Pulse Ox 98 06/27/18 21:16 Intake & Output 06/26/18 06/27/18 06/27/18 23:59 11:59 23:59 Weight 98.43 kg Constitutional: NAD, normally developed, obese white female HEENM: atraumatic; sclera/conjunctiva: anicertic/clear; hearing: clinically intact; oropharynx: clear, mucosa moist Neck: soft tissue: non-tender; thyroid: normal Pulmonary: clear to auscultation bilaterally, good aeration, no accessory muscle use CV: RR/RR, normal S1S2, no carotid bruit, no jugular venous distention, 2+ B DP/ PT, no edema Abdominal: soft, non-distended, non-tender, no rebound/guarding/rigidity, normoactive bowel sounds, no hepatosplenomegaly or masses, no costovertebral angle tenderness Musculoskeletal: general: grossly intact, negative Kimberly's B, no calf tenderness B Integumental: normal appearance and texture of exposed skin Psychiatric orientation: AA&O to PPS affect: anxious mood: pleasant eye contact: good content: reliable responses: timely insight: good Testing: Lab Results 06/27/18 06/27/18 06/27/18 Range/Units 19:15 19:15 19:15 WBC 8.2 (3.5-10.8) 10^3/ul RBC 4.30 (4.00-5.40) 10^6/ul Hgb 13.2 (12.0-16.0) g/dl Hct 38 (35-47) % MCV 89 (80-97) fL MCH 31 (27-31) pg MCHC 34 (31-36) g/dl RDW 13 (10.5-15) % Plt Count 215 (150-450) 10^3/ul MPV 7.9 (7.4-10.4) um3 Neut % (Auto) 58.3 (38-83) % Lymph % (Auto) 31.6 (25-47) % [place] % (Auto) 7.2 H (0-7) % Eos % (Auto) 2.3 (0-6) % Baso % (Auto) 0.6 (0-2) % Absolute Neuts (auto) 4.8 (1.5-7.7) 10^3/ul Absolute Lymphs (auto) 2.6 (1.0-4.8) 10^3/ul Absolute Monos (auto) 0.6 (0-0.8) 10^3/ul Absolute Eos (auto) 0.2 (0-0.6) 10^3/ul Absolute Basos (auto) 0 (0-0.2) 10^3/ul Absolute Nucleated RBC 0 10^3/ul Nucleated RBC % 0.2 INR (Anticoag Therapy) 0.98 (0.77-1.02) APTT 26.1 (26.0-36.3) seconds D-Dimer, Quantitative > 1050 H (Less Than 230) ng/mL Sodium 138 (135-145) mmol/L Potassium 4.5 (3.5-5.0) mmol/L Chloride 105 (101-111) mmol/L Carbon Dioxide 28 (22-32) mmol/L Anion Gap 5 (2-11) mmol/L BUN 9 (6-24) mg/dL Creatinine 0.66 (0.51-0.95) mg/dL Est GFR ( Amer) 129.0 (>60) Est GFR (Non-Af Amer) 106.6 (>60) BUN/Creatinine Ratio 13.6 (8-20) Glucose 93 (70-100) mg/dL Lactic Acid (0.5-2.0) mmol/L Calcium 9.2 (8.6-10.3) mg/dL Total Bilirubin 0.40 (0.2-1.0) mg/dL AST 10 L (13-39) U/L ALT 7 (7-52) U/L Alkaline Phosphatase 46 (34-104) U/L Troponin I 0.00 (<0.04) ng/mL Total Protein 6.8 (6.4-8.9) g/dL Albumin 3.9 (3.2-5.2) g/dL Globulin 2.9 (2-4) g/dL Albumin/Globulin Ratio 1.3 (1-3) Beta HCG, Quant < 0.60 mIU/mL 06/27/18 Range/Units 19:15 WBC (3.5-10.8) 10^3/ul RBC (4.00-5.40) 10^6/ul Hgb (12.0-16.0) g/dl Hct (35-47) % MCV (80-97) fL MCH (27-31) pg MCHC (31-36) g/dl RDW (10.5-15) % Plt Count (150-450) 10^3/ul MPV (7.4-10.4) um3 Neut % (Auto) (38-83) % Lymph % (Auto) (25-47) % [place] % (Auto) (0-7) % Eos % (Auto) (0-6) % Baso % (Auto) (0-2) % Absolute Neuts (auto) (1.5-7.7) 10^3/ul Absolute Lymphs (auto) (1.0-4.8) 10^3/ul Absolute Monos (auto) (0-0.8) 10^3/ul Absolute Eos (auto) (0-0.6) 10^3/ul Absolute Basos (auto) (0-0.2) 10^3/ul Absolute Nucleated RBC 10^3/ul Nucleated RBC % INR (Anticoag Therapy) (0.77-1.02) APTT (26.0-36.3) seconds D-Dimer, Quantitative (Less Than 230) ng/mL Sodium (135-145) mmol/L Potassium (3.5-5.0) mmol/L Chloride (101-111) mmol/L Carbon Dioxide (22-32) mmol/L Anion Gap (2-11) mmol/L BUN (6-24) mg/dL Creatinine (0.51-0.95) mg/dL Est GFR ( Amer) (>60) Est GFR (Non-Af Amer) (>60) BUN/Creatinine Ratio (8-20) Glucose (70-100) mg/dL Lactic Acid 0.6 (0.5-2.0) mmol/L Calcium (8.6-10.3) mg/dL Total Bilirubin (0.2-1.0) mg/dL AST (13-39) U/L ALT (7-52) U/L Alkaline Phosphatase (34-104) U/L Troponin I (<0.04) ng/mL Total Protein (6.4-8.9) g/dL Albumin (3.2-5.2) g/dL Globulin (2-4) g/dL Albumin/Globulin Ratio (1-3) Beta HCG, Quant mIU/mL ECG, personally reviewed: NSR rate 92, T-wave inversion III CT chest, personally reviewed: IMPRESSION: Moderate to large volume pulmonary emboli burden without findings of right heart strain. US DVT BLE: IMPRESSION: Normal bilateral lower extremity duplex venous ultrasound. Impression: 27F obese female on oral contraception recently returned from [place] via car presents with B pulmonary emboli DIAGNOSIS & PLAN Primary B pulmonary emboli : no recent surgery, HX ICH, bloody/black stools/emesis, or other contraindication for anticoagulation : TX options discusses w/ risks/benefits/reasoning; opts for rivaroxaban : rivaroxaban 15mg PO BID x3 weeks then 20mg daily for total of 3-6months : supplemental oxygen : bed rest for now : pain control : anxiety control : D/C OCPs : weight loss recommended : supportive care Secondary anxiety : continue alprazolam Admission Rational: Inpatient as without the above interventions the risk of impending adverse outcome is unacceptably high; inappropriate for the outpatient setting DVTp: rivaroxaban Code Status: full HCP: parents Critical Care time: 55minutes with >50% spent at the bedside obtaining a history , performing the examination, advising of diagnosis & treatment options along with risks/benefits/reasoning; remainder spent discussing with ER provider, reviewing labs and radiology exams
[2018-06-27] MEDS: Docusate CAP* 100 MG PO SCH (23:31)
[2018-06-28 05:35] LABS: Hematocrit 37 % (35-47); Hemoglobin 12.7 g/dl (12.0-16.0)
[2018-06-28] MEDS: Omeprazole CAP* 20 MG PO SCH (06:07)
--- NOTE | 2018-06-28 07:31 | RAD ---
INDICATION: Chest pain. Short of breath. Evaluate for pulmonary embolus. COMPARISON: None TECHNIQUE: Axial source images were obtained from the thoracic inlet to the hemidiaphragms following administration of [address] angiographic technique was utilized. Coronal and sagittal reconstructed images were acquired. CHEST FINDINGS: Neck/thyroid: The visualized neck to include the thyroid appear normal. Chest wall: There are no acute abnormalities of the bony thorax or chest wall. There is no supraclavicular, infraclavicular, or axillary lymphadenopathy. Lungs : There are no pulmonary parenchymal masses or infiltrates. The pulmonary interstitium appears normal. There are no endobronchial lesions. Cardiomediastinal structures: There there are third order and distal, bilateral acute pulmonary emboli involving the upper and lower lobes consistent with significant thrombus burden. The heart is normal in size. There is no pericardial effusion. There is no evidence of aortic aneurysm or dissection. There is no mediastinal or hilar adenopathy. The esophagus appears normal. Pleura : There are no pleural-based masses or effusions. Other: None. IMPRESSION: ACUTE BILATERAL PULMONARY EMBOLI WITH SIGNIFICANT THROMBUS BURDEN
--- NOTE | 2018-06-28 07:32 | RAD ---
INDICATION: Acute bilateral pulmonary emboli. COMPARISON: CTA chest same date TECHNIQUE: Duplex interrogation of the Lowerextremity was performed. FINDINGS: Deep veins: The common femoral, great saphenous, profunda femoris, proximal, mid, and distal deep femoral, popliteal, posterior tibial, and peroneal veins are patent bilaterally. There is normal compressibility, augmentation, and phasic flow. Superficial veins: There are no findings of superficial thrombophlebitis. Popliteal fossa:There is no evidence of a popliteal cyst in either leg. Soft tissues:There are no soft tissue abnormalities in either leg.. IMPRESSION: NORMAL BILATERAL EXAMINATION. NO EVIDENCE OF DEEP VENOUS THROMBOSIS
[2018-06-28] MEDS: Docusate CAP* 100 MG PO SCH ×2 (08:21→21:15)
[2018-06-28] MEDS: Rivaroxaban TAB(*) 15 MG PO SCH ×2 (08:21→21:15)
--- NOTE | 2018-06-28 12:07 | ECHO ---
Patient: JERZY RAMOS [facility] Rec#: [id number] : 1990 Date: 06/28/2018 Age: 27y Height: 172.7 cm / 68.0 in Weight: 95 kg / 209.4 lbs Sex: F BSA: 2.08 Room#: 432 Admit Date#: 06/27/2018 Type: Inpatient Referring: Jose Ashraf MD Reading: Eduar Constantino MD Respiratory Care Instructor: Mariella DonASHA CC: Lisa Mtz MD Transthoracic Echocardiogram Indication: Pulmary Embolism BP: 136/78 HR: 79 Rhythm: NSR Findings History: Former smoker, obesity. Technical Comments: The study quality is good. Completed at 0900. Left Ventricle: The left ventricular chamber size is normal. There is no left ventricular hypertrophy. Global left ventricular wall motion and contractility are within normal limits. There is normal left ventricular systolic function. The estimated ejection fraction is 55-60%. Normal left ventricular diastolic filling is observed. Left Atrium: The left atrial chamber size is normal. Right Ventricle: Moderator Band present. The right ventricle is mildly dilated. The right ventricular global systolic function is low normal. Right Atrium: The right atrium is mildly dilated. Aortic Valve: The aortic valve is trileaflet. There is no evidence of aortic valve thickening. There is no evidence of aortic regurgitation. There is no evidence of aortic stenosis. Mitral Valve: The mitral valve leaflets appear normal. There is mild mitral valve prolapse. There is prolapse of the anterior leaflet of the mitral valve. There is a trace of mitral regurgitation. There is no evidence of mitral stenosis. Tricuspid Valve: The tricuspid valve leaflets are normal. There is a physiologic tricuspid regurgitation. Unable to estimate the right ventricular systolic pressure. There is no tricuspid stenosis. Pulmonic Valve: The pulmonic valve appears normal. There is a trace pulmonic regurgitation. There is no pulmonic stenosis. Pericardium: There is no significant pericardial effusion. Aorta: There is no dilatation of the ascending aorta. There is no dilatation of the aortic arch. The aortic root is normal in size. Pulmonary Artery: The main pulmonary artery appears normal. Venous: The inferior vena cava appears normal in size. There is a greater than 50% respiratory change in the inferior vena cava dimension. Summary: There was not any prior study for comparison. Conclusions There is normal left ventricular systolic function. The estimated ejection fraction is 55-60%. The right ventricle is mildly dilated. The right ventricular global systolic function is low normal. The right atrium is mildly dilated. There is minimal prolapse of the anterior leaflet of the mitral valve. There is a trace of mitral regurgitation. There is a physiologic tricuspid regurgitation. Measurements Name Value Normal Range RVIDd (AP) 2D 3.1 cm (0.9 - 2.6) RVDdMajor (2D) 4.5 cm (2.2 - 4.4) RAd ISD 4CH 5.5 cm (3.4 - 4.9) RA (A4C)W 3.5 cm (2.9 - 4.6) IVSd (2D) 0.9 cm (0.6 - 1) LVPWd (2D) 0.9 cm (0.6 - 1) LVIDd (2D) 5.2 cm (3.6 - 5.4) LVIDs (2D) 3.3 cm - LV FS (2D) 37 % (25 - 45) Aortic Annulus 2.3 cm (1.4 - 2.6) Ao root diameter (2D) 3 cm (2.1 - 3.5) Ascending Ao 3 cm (2.1 - 3.4) Aortic arch 1.8 cm (1.8 - 3.4) LA dimension (AP) 2D 3.7 cm (2.3 - 3.8) LAd ISD 4CH 5.3 cm (2.9 - 5.3) LA ISD 4CH W 4.5 cm (2.5 - 4.5) Name Value Normal Range LA ESV BP (A/L) index 24 ml/m2 - Name Value Normal Range MV E-wave Vmax 0.9 m/sec - MV deceleration time 183 msec - MV A-wave Vmax 0.6 m/sec - MV E:A ratio 1.4 ratio - LV septal e' Vmax 0.12 m/sec - LV lateral e' Vmax 0.17 m/sec - LV E:e' septal ratio 7.5 ratio - LV E:e' lateral ratio 5.29 ratio - Name Value Normal Range AV Vmax 1.5 m/sec - AV VTI 28.1 cm - AV peak gradient 9 mmHg - AV mean gradient 4 mmHg - LVOT Vmax 1.1 m/sec - LVOT VTI 22.3 cm - LVOT peak gradient 5 mmHg - LVOT mean gradient 3 mmHg - CHRISTIANO Vmax 1.5 m/sec - Name Value Normal Range IVC diameter 1.9 cm - Name Value Normal Range PV Vmax 0.98 m/sec - PV peak gradient 4 mmHg -
--- NOTE | 2018-06-28 14:07 | PN ---
Subjective Date of Service: 06/28/18 Interval History: HOSPITALIST PROGRESS NOTE Patient seen and examined at bedside. Care reviewed and d/w Reed Braun RN. She feels better today. Chest pressure is much improved. She does not have dyspnea at rest, has not moved around yet today to be able to tell me about dyspnea on exertion. Family History: Unchanged from Admission Social History: Unchanged from Admission Past Medical History: Unchanged from Admission Objective Active Medications: Acetaminophen (Tylenol Tab*) 650 mg PO Q6H PRN PRN Reason: FEVER/PAIN Alprazolam (Xanax Tab*) 0.25 mg PO Q4H PRN PRN Reason: ANXIETY Cyclobenzaprine HCl (Flexeril Tab*) 10 mg PO TID PRN PRN Reason: SPASMS Docusate Sodium (Colace Cap*) 100 mg PO BID [facility] Last Admin: 06/28/18 08:21 Dose: 100 mg Melatonin (Melatonin) 3 mg PO BEDTIME PRN; Protocol PRN Reason: Sleep Omeprazole (Prilosec Cap*) 20 mg PO DAILY@0600 [facility] Last Admin: 06/28/18 06:07 Dose: 20 mg Ondansetron HCl (Zofran Odt Tab*) 4 mg PO Q6H PRN PRN Reason: n/v Oxycodone HCl (Roxycodone Tab*) 2.5 mg PO Q3H PRN PRN Reason: PAIN Rivaroxaban (Xarelto(*)) 15 mg PO Q12H [facility] Last Admin: 06/28/18 08:21 Dose: 15 mg Vital Signs - 8 hr 06/28/18 06/28/18 06/28/18 08:00 09:00 12:25 Temperature 98.5 F 98.6 F Pulse Rate 95 82 Respiratory 16 16 16 Rate Blood Pressure 136/83 131/65 (mmHg) O2 Sat by Pulse 99 100 Oximetry Oxygen Devices in Use Now: None Appearance: Young lady lying in bed in NAD. Eyes: No Scleral Icterus Ears/Nose/Mouth/Throat: Mucous Membranes Moist Neck: Trachea Midline Respiratory: Symmetrical Chest Expansion and Respiratory Effort, Clear to Auscultation Cardiovascular: RRR - Normal S1 and S2 Abdominal: NL Sounds; No Tenderness; No Distention Neurological: Alert and Oriented x 3, NL Muscle Strength and Tone Result Diagrams: 06/28/18 05:15 06/27/18 19:15 Assess/Plan/Problems-Billing Assessment: Ms Gifford is a 27yo F with PMH of obesity with BMI 31, anxiety, who presented with c/o chest pain and dyspnea after a recent road trip to [place], found to have bilateral PE. - Patient Problems (1) Pulmonary embolism Comment: - This episode was provoked by BCP use and recent long road trip. No family history of blood clots. - LE doppler was negative. - CTA chest showed bilateral PE with significant thrombus burden. - Echo showed EF 55-60%, with low normal RV systolic function, mild RV dilatation. - She has minimal symptoms, normal VS, good SO2 on RA - no indication for thrombolytics. - Continue Xarelto. (2) Anxiety Comment: - Continue Alprazolam. (3) DVT prophylaxis Comment: - Xarelto. (4) Full code status Status and Disposition: Inpatient.
[2018-06-28] MEDS: Cyclobenzaprine TAB* 10 MG PO PRN (16:27)
[2018-06-28] MEDS: oxyCODONE TAB* 5 MG TAB PO PRN (18:22)
[2018-06-29 06:03] LABS: ABS Basophils 0.1 10^3/ul (0-0.2); ABS Eosinophils 0.2 10^3/ul (0-0.6); ABS Lymphocytes 1.8 10^3/ul (1.0-4.8); ABS Monocytes 0.5 10^3/ul (0-0.8); ABS Neutrophils 5.6 10^3/ul (1.5-7.7); ABS Nucleated RBC 0 10^3/ul; Eosinophil % 2.4 % (0-6); Hematocrit 38 % (35-47); Hemoglobin 13.1 g/dl (12.0-16.0); Lymphocyte % 21.9 % (25-47); Mean Corpuscular HGB Conc 34 g/dl (31-36); Mean Corpuscular Hemoglobin 31 pg (27-31); Mean Corpuscular Volume 89 fL (80-97); Mean Platelet Volume 8.6 um3 (7.4-10.4); Nucleated Red Blood Cells % 0; Platelet Count 216 10^3/ul (150-450); Red Blood Count 4.28 10^6/ul (4.00-5.40); Red Cell Distribution Width 13 % (10.5-15); White Blood Count 8.1 10^3/ul (3.5-10.8)
[2018-06-29] MEDS: oxyCODONE TAB* 5 MG TAB PO PRN (06:16)
[2018-06-29] MEDS: Omeprazole CAP* 20 MG PO SCH (06:16)
[2018-06-29] MEDS: Cyclobenzaprine TAB* 10 MG PO PRN (06:19)
[2018-06-29 06:22] LABS: EGFR Non-African American 116.8 (>60)
[2018-06-29 07:29] VITALS: BP 125/73
[2018-06-29] MEDS: Docusate CAP* 100 MG PO SCH (08:05)
[2018-06-29] MEDS: Rivaroxaban TAB(*) 15 MG PO SCH (08:05)
--- NOTE | 2018-06-29 20:04 | DS ---
CC: Dr. Mtz DISCHARGE SUMMARY: DATE OF ADMISSION: 06/27/18 DATE OF DISCHARGE: 06/29/18 PRIMARY CARE PROVIDER: Dr. Mtz. DISCHARGE DIAGNOSIS: Bilateral pulmonary embolism. SECONDARY DIAGNOSES: 1. Obesity with a BMI of 31. 2. Anxiety. 2. Low back pain secondary to osteoarthritis due to an old sacral fracture. MEDICATION LIST: 1. Cetirizine 5 mg p.o. daily. 2. Alprazolam 0.25 mg p.o. q.4 hours p.r.n. anxiety. 3. Cyclobenzaprine 10 mg p.o. t.i.d. as needed for spasms. New medications: 1. Oxycodone 5 mg p.o. q.6 hours p.r.n. pain, MDD 20 mg. 2. Rivaroxaban 15 mg p.o. q.12 hours for 20 days, followed by rivaroxaban 20 mg daily. 3. MiraLAX 17 g p.o. daily. 4. Acetaminophen 650 mg p.o. q.6 hours p.r.n. pain or fever. HOSPITAL COURSE: Ms. Gifford is a 27-year-old lady with a past medical history as stated above that returned recently from a road trip to [place] and developed sudden shortness of breath and chest pain. Of note is the fact that the patient is on a control pill. Her workup in the emergency room included a D- dimer greater than 1050 and a CTA of the chest was positive for bilateral pulmonary emboli. The patient was started on anticoagulation with Xarelto and had a lower extremity Doppler that was normal with no evidence of DVT. Transthoracic echocardiogram showed ejection fraction of 55% to 60% with mild dilatation of the right ventricle and low normal right ventricular global systolic function. The patient had improvement of her shortness of breath. She did not require supplemental oxygen and her vital signs were stable. She developed left-sided pleuritic pain possibly secondary to her PE. The patient was offered the chance of staying in the hospital for another night so she could receive more pain medication, but she elected to be discharged with oral pain medications as she really wanted "to sleep in my own bed." The patient was advised that she should avoid excessive physical exertion and she will follow up with her primary care provider next week before deciding when she can return to work. PHYSICAL EXAMINATION: Vital Signs: Temperature 98.8, heart rate 92, respiratory rate 16, oxygen saturation 98% on room air, blood pressure is 125/ 73. General: The patient is a young lady, sitting up in bed, in no acute distress. CVS: Normal S1, S2. Regular rate and rhythm. Chest: Breath sounds present bilaterally with no added sounds. Abdomen is soft. Bowel sounds are present. Extremities: No edema. Neuro: She is alert and oriented x3. Able to move all 4 extremities. DIET: Regular diet. ACTIVITIES: As tolerated. DISPOSITION: To home. STATUS WHILE IN THE HOSPITAL: Inpatient. Please keep in mind that this is a summarized version of this patient's hospital stay. If you need more information, please feel free to call me at or please obtain full medical records. TIME SPENT: Approximately 45 minutes was spent to complete this discharge. [id number]/[facility] #: [id number] JOHN
== END 2018-06-29 10:55 | disposition home or self-care (01) | DRG 134 ==
LOC: ED 18:29 → MEDTELE 20:39
PROVIDERS: ADMIT Hospitalist; ATTEND Internal Medicine
DX: I26.99 Other pulmonary embolism without acute cor pulmonale (principal); E66.9 Obesity, unspecified; F41.9 Anxiety disorder, unspecified; M47.818 Spondylosis without myelopathy or radiculopathy, sacral and sacrococcygeal region; Z79.01 Long term (current) use of anticoagulants; Z88.0 Allergy status to penicillin; Z88.2 Allergy status to sulfonamides; Z87.891 Personal history of nicotine dependence; Z68.31 Body mass index [BMI] 31.0-31.9, adult; Z82.49 Family history of ischemic heart disease and other diseases of the circulatory system
CPT/HCPCS: 36415; 71275; 80048; 80053; 83605; 84484; 84702; 85014; 85018; 85025; 85379; 85610; 85730; 93005; 93306; 93970; 99284; A9270-GY; Q9967

== ENCOUNTER 2018-06-29 16:21 | Inpatient (IN) | payer BC ==
[2018-06-29] MEDS ORDERED: ALPRAZolam TAB* 0.25 MG PO PRN (16:57)
[2018-06-29] MEDS ORDERED: Rivaroxaban TAB(*) 15 MG PO SCH (17:00)
[2018-06-29] MEDS: Morphine VIAL* 4 MG/ML VIAL (1 ml vial) IV PRN ×2 (17:13→21:03)
[2018-06-29] MEDS: oxyCODONE TAB* 5 MG TAB PO PRN (18:04)
[2018-06-29 18:19] LABS: EGFR Non-African American 106.6 (>60)
--- NOTE | 2018-06-29 18:40 | RAD ---
INDICATION: Chest pain. COMPARISON: Comparison is made with a prior chest x-ray study from August 19, [address] angiogram from June 27, 2018. TECHNIQUE: Dual-energy PA and lateral views of the chest were obtained. FINDINGS: The heart is within normal limits in size. Mediastinal and hilar contours appear within normal limits. The lungs are underinflated. There is a infiltrate present in the left lower lobe. The right lung appears clear. No pleural effusion is seen. IMPRESSION: SMALL LEFT LOWER LOBE INFILTRATE DIFFERENTIAL DIAGNOSIS WOULD INCLUDE ATELECTASIS, PNEUMONIA OR POSSIBLY A PULMONARY INFARCT GIVEN THE PRIOR CTA FINDINGS OF LEFT LOWER LOBE PULMONARY EMBOLI.
--- NOTE | 2018-06-29 18:58 | HP ---
CC: Dr. Mtz HISTORY AND PHYSICAL: DATE OF ADMISSION: 06/29/18 TIME OF EVALUATION: 4:50 p.m. PRIMARY CARE PROVIDER: Dr. Mtz. CHIEF COMPLAINT: Chest pain. HISTORY OF PRESENT ILLNESS: Ms. Gifford is a 27-year-old lady with a past medical history of an xiety, low back pain, obesity with recent BMI of 31, and recent admission for pulmonary embolism prov oked by long road trip and control use, who returns to the hospital with complaints of chest pa in. The patient had a recent trip to [place] and when she returned she had shortness of breath and chest pressure and she was diagnosed with bilateral pulmonary embolism. She was started on Xarelto an d had improvement. Earlier today, she had developed some pleuritic chest pain on the left under her breast radiating to her back worse with deep inspiration and cough. I had offered her to stay in the hospital longer, so we could give her pain medication, but the patient felt, she will be able to man age her symptoms at home and prefer to be discharged as in her own words, she wanted to "sleep on my own bed." She was discharged with prescription for oxycodone and she stated she went home, took her medication, was able to take a nap, but the pain returned and was severe. She took another dose of o xycodone with no significant improvement, so she called the hospital back and after our conversation, she decided to return to the hospital for further pain management. PAST MEDICAL HISTORY: 1. Pulmonary embolism as described above. 2. Obesity with BMI of 31. 3. Low back pain secondary to an old sacral fracture. 4. Anxiety. PAST SURGICAL HISTORY: Status post tonsillectomy and wisdom teeth extraction. MEDICATION LIST: 1. Acetaminophen 650 mg p.o. q.6 hours p.r.n., fever. 2. Alprazolam 0.25 mg p.o. q.4 hours p.r.n., anxiety. 3. Oxycodone 5 mg p.o. q.6 hours p.r.n., pain. 4. Rivaroxaban 15 mg p.o. q.12 hours for 20 days followed by 20 mg daily. 5. MiraLAX 17 g p.o. daily. 6. Cyclobenzaprine 10 mg p.o. t.i.d. as needed for muscle spasms. 7. Cetirizine 5 mg p.o. daily. ALLERGIES: To PENICILLIN and SULFA (the patient had hives). FAMILY HISTORY: Father has hypertension. Mother had a splenectomy. SOCIAL HISTORY: The patient quit smoking 3 years ago. No alcohol or recreational drugs. 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 Surrogate decision maker is her father, Eleuterio Gifford, phone number is [phone]. REVIEW OF SYSTEMS: A 14-point review of systems was performed and all the pertinent negative and pos itive findings are in the HPI. PHYSICAL EXAMINATION GENERAL: The patient is a young lady, sitting up in bed, in no acute distress. VITAL SIGNS: Heart rate is 95, oxygen saturation is 96% on room air, respiratory rate is 24, blood p ressure is 120/55. CHEST: Breath sounds present bilaterally with no added sounds. CVS: Normal S1, S2. Regular rate and rhythm. ABDOMEN: Soft. Bowel sounds are present. EXTREMITIES: No edema. NEUROLOGIC: She is alert and oriented x3. Able to move all 4 extremities. ASSESSMENT AND PLAN: 1. Ms. Gifford is a 27-year-old lady that was just discharged after being diagnosed with bilate ral pulmonary embolism. Then developed pleuritic chest pain likely secondary to her pulmonary emboli sm/pulmonary infarct. She attempted pain control at home with oxycodone without success, so she retu rned to the hospital for further pain management. She will receive morphine IV and we will transition to oral oxycodone. I am going to check labs and EKG, 2 view chest x-ray and I will monitor her on telemetry, but I reall y believe that her symptoms are secondary to her pulmonary embolism. We will continue her anticoagulation with Xarelto. 2. DVT prophylaxis. The patient has a score of 3 on the DVT prophylaxis Risk Assessment and Guide a nd she is already anticoagulated with Xarelto. 3. Code status is full. TIME SPENT: Approximately 40 minutes were spent with the patient interview, medical records review, physical examination to complete the admission, more than half of this time was spent [id number] wi th the patient and coordination of care. [id number]/[facility] #: [id number]
[2018-06-29] MEDS: Rivaroxaban TAB(*) 15 MG PO SCH (21:03)
[2018-06-29] MEDS: Cyclobenzaprine TAB* 10 MG PO PRN (21:04)
[2018-06-30] MEDS: Morphine VIAL* 4 MG/ML VIAL (1 ml vial) IV PRN ×2 (02:07→18:22)
[2018-06-30 05:28] LABS: ABS Basophils 0 10^3/ul (0-0.2); ABS Eosinophils 0.1 10^3/ul (0-0.6); ABS Lymphocytes 2.5 10^3/ul (1.0-4.8); ABS Monocytes 0.8 10^3/ul (0-0.8); ABS Neutrophils 5.9 10^3/ul (1.5-7.7); ABS Nucleated RBC 0 10^3/ul; Eosinophil % 1.6 % (0-6); Hematocrit 38 % (35-47); Hemoglobin 13.1 g/dl (12.0-16.0); Lymphocyte % 26.4 % (25-47); Mean Corpuscular HGB Conc 35 g/dl (31-36); Mean Corpuscular Hemoglobin 31 pg (27-31); Mean Corpuscular Volume 88 fL (80-97); Mean Platelet Volume 8.1 um3 (7.4-10.4); Nucleated Red Blood Cells % 0.1; Platelet Count 239 10^3/ul (150-450); Red Blood Count 4.31 10^6/ul (4.00-5.40); Red Cell Distribution Width 12 % (10.5-15); White Blood Count 9.5 10^3/ul (3.5-10.8)
[2018-06-30] MEDS: Polyethylene Glycol 3350* 17 GM PACKET PO SCH (07:54)
[2018-06-30] MEDS: Acetaminophen TAB* 325 MG PO PRN ×2 (07:54→14:03)
[2018-06-30] MEDS: Cyclobenzaprine TAB* 10 MG PO PRN ×3 (07:54→20:48)
[2018-06-30] MEDS: oxyCODONE TAB* 5 MG TAB PO PRN ×4 (07:55→20:49)
[2018-06-30] MEDS: Rivaroxaban TAB(*) 15 MG PO SCH ×2 (07:57→20:48)
--- NOTE | 2018-06-30 10:39 | PN ---
Subjective Date of Service: 06/30/18 Interval History: HOSPITALIST PROGRESS NOTE Patient seen and examined at bedside. Care reviewed and d/w Cherelle Rowley RN. She feels a little better today, but required multiple doses of Morphine and oxycodone to be able to sleep last night. Denies dyspnea or palpitations. Able to use incentive spirometer. Family History: Unchanged from Admission Social History: Unchanged from Admission Past Medical History: Unchanged from Admission Objective Active Medications: Acetaminophen (Tylenol Tab*) 650 mg PO Q6H PRN PRN Reason: FEVER/PAIN Last Admin: 06/30/18 07:54 Dose: 650 mg Alprazolam (Xanax Tab*) 0.25 mg PO Q4H PRN PRN Reason: ANXIETY Cyclobenzaprine HCl (Flexeril Tab*) 10 mg PO TID PRN PRN Reason: SPASMS Last Admin: 06/30/18 07:54 Dose: 10 mg Morphine Sulfate (Morphine Vial*) 4 mg IV Q4H PRN PRN Reason: SEVERE PAIN Last Admin: 06/30/18 02:07 Dose: 4 mg Oxycodone HCl (Roxycodone Tab*) 5 mg PO Q4H PRN PRN Reason: Mild to moderate pain Last Admin: 06/29/18 18:04 Dose: 5 mg Oxycodone HCl (Roxycodone Tab*) 10 mg PO Q4H PRN PRN Reason: Moderate to severe pain Last Admin: 06/30/18 07:55 Dose: 10 mg Polyethylene Glycol/Electrolytes (Miralax*) 17 gm PO DAILY [facility] Last Admin: 06/30/18 07:54 Dose: 17 gm Rivaroxaban (Xarelto(*)) 15 mg PO [phone] [facility] Last Admin: 06/30/18 07:57 Dose: 15 mg Vital Signs - 8 hr 06/30/18 06/30/18 06/30/18 03:17 06:14 06:15 Temperature 98.6 F Pulse Rate 104 Respiratory 20 18 17 Rate Blood Pressure 137/78 (mmHg) O2 Sat by Pulse 95 Oximetry 06/30/18 06/30/18 06/30/18 06:16 07:25 07:53 Temperature 98.5 F Pulse Rate 106 Respiratory 18 20 20 Rate Blood Pressure 127/74 (mmHg) O2 Sat by Pulse 96 Oximetry Oxygen Devices in Use Now: None Appearance: Young lady sitting up in bed in NAD. Eyes: No Scleral Icterus Ears/Nose/Mouth/Throat: Mucous Membranes Moist Neck: Trachea Midline Respiratory: Symmetrical Chest Expansion and Respiratory Effort, Clear to Auscultation Cardiovascular: NL Sounds; No Murmurs; No JVD, RRR Neurological: Alert and Oriented x 3, NL Muscle Strength and Tone Result Diagrams: 06/30/18 05:10 06/30/18 05:10 Assess/Plan/Problems-Billing Assessment: Ms Gifford is a 27yo F with PMH of recently diagnosed provoked PE (long road trip and BCP use), readmitted due to uncontrolled left sided chest pain, likely secondary to PE/pulmonary infarction. - Patient Problems (1) Pulmonary embolism Comment: - This episode was provoked by BCP use and recent long road trip. No family history of blood clots. - LE doppler was negative. - CTA chest showed bilateral PE with significant thrombus burden. - Echo showed EF 55-60%, with low normal RV systolic function, mild RV dilatation. - Continue Xarelto. - CxR shows small left lower lobe infiltrate - suspect pulmonary infarct. No signs of infection at this time, but at risk for pneumonia. Encouraged to continue incentive spirometer. (2) Anxiety Comment: - Continue Alprazolam. (3) DVT prophylaxis Comment: - Xarelto. (4) Full code status
[2018-06-30] MEDS ORDERED: Bisacodyl EC TAB* 5 MG PO PRN (14:12)
--- NOTE | 2018-06-30 17:45 | CONS ---
PULMONARY CONSULTATION REPORT: DATE OF CONSULT: 06/30/18 CONSULTATION REQUESTED BY: Dr. Leatha Payne. REASON FOR CONSULTATION: Evaluation of pulmonary embolism and chest pain. HISTORY OF PRESENT ILLNESS: The patient is a 27-year-old female who was recently admitted to the hospital from 06/27/18 to 06/29/18 for shortness of breath, found to have bilateral pulmonary embolism. The patient was initiated on anticoagulation and was discharged on Xarelto. The patient had left-sided chest pain at the time of discharge; however, wanted to be discharged and was discharged with some oxycodone. The patient had worsening of left-sided chest pain that was not responding to oxycodone and decided to present to the emergency room for further evaluation. The patient had a recent trip to [place], had shortness of breath and chest pressure since she returned from the trip. The patient denies chest pain, dizziness, loss of weight or appetite or hemoptysis. The patient was initiated on morphine along with oxycodone with improvement in pain currently. She is able to ambulate without hypoxemia. The patient has chronic back pain secondary to old sacral fractures. The patient had echocardiogram during recent hospitalization, which revealed normal ejection fraction with mildly dilated right ventricle with normal systolic function with no evidence of septal collapse or significant right heart strain. I have personally reviewed CT of the chest from 06/27/18, which revealed bilateral filling defects in pulmonary arteries. Filling defects are seen in third border distal pulmonary arteries bilaterally in the upper and lower lobes. No pleural base masses or effusions were noted at that time. I have personally reviewed chest x-ray from 06/29/18, which revealed acute airspace opacity at the left base. The patient reports mild improvement in pain. Denies any other symptoms. PAST MEDICAL HISTORY: 1. Pulmonary embolism, recently diagnosed, on Xarelto. 2. Obesity with BMI of 31. 3. Chronic low back pain secondary to old sacral fractures. 4. Anxiety. PAST SURGICAL HISTORY: Status post tonsillectomy and wisdom tooth extraction. MEDICATIONS: 1. Acetaminophen 650 p.o. q.6 hours p.r.n. 2. Xanax 0.25 mg q.4 hours p.r.n. 3. Oxycodone 5 mg p.o. q.6 hours p.r.n. for pain. 4. Rivaroxaban 15 mg q.12 hours for 20 days, followed by 20 mg. 5. MiraLAX 17 g p.o. daily. 6. Cyclobenzaprine 10 mg p.o. t.i.d. for muscle spasms. 7. Cetirizine 5 mg p.o. daily. ALLERGIES: PENICILLIN, SULFA. FAMILY HISTORY: Father has hypertension. Mother has had splenectomy in the past. No history of pulmonary embolism in the family. SOCIAL HISTORY: Former smoker, quit smoking 3 years ago. No alcohol or drug abuse. She works at a [employer] job. Recent long distance travel to [place]. She is on control pills. REVIEW OF SYSTEMS: All 14 systems reviewed and as per HPI. PHYSICAL EXAM: The patient in bed, in no apparent distress. Vital Signs: Temperature 98, pulse 95 beats per minute, respiratory rate 15 per minute, O2 sat 96% on room air, blood pressure 124/76. HEENT: Pupils are equal and reactive to light, mucous membranes moist, no conjunctival pallor or icterus. No JVD. Lungs: Good air entry bilaterally, the patient with obvious splinting. No cough during deep breath maneuver. Cardiovascular: S1, S2 present, regular. No murmurs, gallops, or rubs. Abdomen: Soft, nontender, nondistended. Bowel sounds present. Extremities: Normal range of motion. No edema. Musculoskeletal Exam: No tenderness in the spine or paraspinal area. Skin: No rash or bruise. Neuro: No focal deficits. Alert, awake, oriented, slightly anxious. DIAGNOSTIC STUDIES/LAB DATA: Laboratory Exam: WBC 9.5, hemoglobin 13.1, hematocrit 38, platelet count 239. Sodium 137, potassium 3.6, chloride 103, bicarb 27, BUN 8, creatinine 0.6. Troponins x3 negative. Chest x-ray, CT as described above in HPI. Venous Dopplers during recent admission negative for DVT. IMPRESSION AND RECOMMENDATIONS: A 27-year-old female with recent provoked pulmonary embolism secondary to long distance travel, obesity being on control pills with acute subsegmental pulmonary embolism bilaterally with pleuritic chest pain. 1. Pulmonary embolism. 2. Chest pain likely secondary to pulmonary infarct in the setting of pulmonary embolism. No fevers or hemodynamic instability. I do not think it is a new embolism causing pleuritic chest pain. I think she is on an optimal anticoagulation at this time. I do not see any reason to be changed. She did not have significant right heart strain on recent echocardiogram. Recommend optimal control of pain, incentive spirometry use. The patient was warned regarding concerning findings of fever, productive cough , chills, worsening shortness of breath, which might indicate secondary bacterial infection in possible infarct area. The patient to ambulate as tolerated. Will follow up in pulmonary clinic in 4 to 6 weeks. Thank you for allowing me to participate in the care of your patient. Will follow up with you. [id number]/[facility] #: [id number] JOHN
[2018-07-01] MEDS: Morphine VIAL* 4 MG/ML VIAL (1 ml vial) IV PRN ×2 (02:56→07:18)
[2018-07-01] MEDS: Polyethylene Glycol 3350* 17 GM PACKET PO SCH (07:15)
[2018-07-01] MEDS: Cyclobenzaprine TAB* 10 MG PO PRN ×2 (07:16→15:17)
[2018-07-01] MEDS: Rivaroxaban TAB(*) 15 MG PO SCH ×2 (07:17→21:10)
[2018-07-01] MEDS: oxyCODONE TAB* 5 MG TAB PO PRN ×3 (10:17→22:09)
[2018-07-01] MEDS: Acetaminophen TAB* 325 MG PO PRN ×2 (10:17→15:18)
--- NOTE | 2018-07-01 15:12 | PN ---
Subjective Date of Service: 07/01/18 Interval History: HOSPITALIST PROGRESS NOTE Patient seen and examined at bedside. Care reviewed and d/w Anjum Reeves RN. She feels a little better today, but pain is still severe, especially with movement and deep inspiration. Family History: Unchanged from Admission Social History: Unchanged from Admission Past Medical History: Unchanged from Admission Objective Active Medications: Acetaminophen (Tylenol Tab*) 650 mg PO Q6H PRN PRN Reason: FEVER/PAIN Last Admin: 07/01/18 10:17 Dose: 650 mg Alprazolam (Xanax Tab*) 0.25 mg PO Q4H PRN PRN Reason: ANXIETY Last Admin: 06/30/18 20:49 Dose: 0.25 mg Bisacodyl (Dulcolax Ec Tab*) 10 mg PO DAILY PRN PRN Reason: CONSTIPATION Last Admin: 06/30/18 15:03 Dose: 10 mg Cyclobenzaprine HCl (Flexeril Tab*) 10 mg PO TID PRN PRN Reason: SPASMS Last Admin: 07/01/18 07:16 Dose: 10 mg Morphine Sulfate (Morphine Vial*) 4 mg IV Q4H PRN PRN Reason: SEVERE PAIN Last Admin: 07/01/18 07:18 Dose: 4 mg Oxycodone HCl (Roxycodone Tab*) 5 mg PO Q4H PRN PRN Reason: Mild to moderate pain Last Admin: 06/30/18 16:00 Dose: 5 mg Oxycodone HCl (Roxycodone Tab*) 15 mg PO Q4H PRN PRN Reason: Moderate to severe pain Polyethylene Glycol/Electrolytes (Miralax*) 17 gm PO DAILY [facility] Last Admin: 07/01/18 07:15 Dose: 17 gm Rivaroxaban (Xarelto(*)) 15 mg PO 799,1999 [facility] Last Admin: 07/01/18 07:17 Dose: 15 mg Vital Signs - 8 hr 07/01/18 07/01/18 07/01/18 08:10 10:08 10:09 Temperature 98.0 F Pulse Rate 93 Respiratory 20 16 16 Rate Blood Pressure 125/74 (mmHg) O2 Sat by Pulse 97 Oximetry 07/01/18 07/01/18 07/01/18 10:17 11:03 11:32 Temperature 98.1 F Pulse Rate 97 Respiratory 16 16 20 Rate Blood Pressure 123/82 (mmHg) O2 Sat by Pulse 97 Oximetry Oxygen Devices in Use Now: None Appearance: Pleasant young lady sitting up in bed in NAD. Eyes: No Scleral Icterus Ears/Nose/Mouth/Throat: Mucous Membranes Moist Neck: Trachea Midline Respiratory: Symmetrical Chest Expansion and Respiratory Effort, Clear to Auscultation Cardiovascular: NL Sounds; No Murmurs; No JVD, RRR Neurological: Alert and Oriented x 3, NL Muscle Strength and Tone Result Diagrams: 06/30/18 05:10 06/30/18 05:10 Assess/Plan/Problems-Billing Assessment: Ms Gifford is a 27yo F with PMH of recently diagnosed provoked PE (long road trip and BCP use), readmitted due to uncontrolled left sided chest pain, likely secondary to PE/pulmonary infarction. - Patient Problems (1) Pulmonary embolism Comment: - This episode was provoked by BCP use and recent long road trip. No family history of blood clots. - LE doppler was negative. - CTA chest showed bilateral PE with significant thrombus burden. - Echo showed EF 55-60%, with low normal RV systolic function, mild RV dilatation. - Continue Xarelto. - CxR shows small left lower lobe infiltrate - suspect pulmonary infarct. No signs of infection at this time, but at risk for pneumonia. Encouraged to continue incentive spirometer. - Pulm input appreciated. - Continue pain management - will increase Oxycodone to 15mg and monitor. (2) Anxiety Comment: - Continue Alprazolam. (3) DVT prophylaxis Comment: - Xarelto. (4) Full code status
[2018-07-01] MEDS ORDERED: Magnesium Hydroxide LIQ* 30 ML UDC PO PRN (15:14)
[2018-07-01] MEDS ORDERED: Magnesium CITRATE* 300 ML BTL PO PRN (15:15)
[2018-07-02] MEDS: oxyCODONE TAB* 5 MG TAB PO PRN (08:17)
[2018-07-02] MEDS: Polyethylene Glycol 3350* 17 GM PACKET PO SCH (08:18)
[2018-07-02] MEDS: Rivaroxaban TAB(*) 15 MG PO SCH (10:56)
[2018-07-02 12:11] VITALS: BP 129/81
--- NOTE | 2018-07-02 16:45 | PN ---
Progress Note - Progress Note Date of Service: 07/02/18 - Pulm f/u note Note: Pt seen and examined at bedside. Pt reports improvement in chest discomfort, has been able to ambulate with no limitation. Denies cough, SOB Active Medications Generic Name Dose Route Start Last Admin Trade Name Freq PRN Reason Stop Dose Admin Acetaminophen 650 mg 06/29/18 16:57 07/01/18 15:18 Tylenol Tab* PO 650 mg Q6H PRN Administration FEVER/PAIN Alprazolam 0.25 mg 06/29/18 16:57 06/30/18 20:49 Xanax Tab* PO 0.25 mg Q4H PRN Administration ANXIETY Bisacodyl 10 mg 06/30/18 14:12 06/30/18 15:03 Dulcolax Ec Tab* PO 10 mg DAILY PRN Administration CONSTIPATION Cyclobenzaprine HCl 10 mg 06/29/18 16:57 07/01/18 15:17 Flexeril Tab* PO 10 mg TID PRN Administration SPASMS Magnesium Citrate 150 ml 07/01/18 15:15 07/02/18 09:13 Citrate Of Magnesia* PO 150 ml ONCE PRN Administration CONSTIPATION Magnesium Hydroxide 30 ml 07/01/18 15:14 07/01/18 22:09 Milk Of Magnesia Liq* PO 30 ml Q6H PRN Administration CONSTIPATION Morphine Sulfate 4 mg 06/29/18 16:59 07/01/18 07:18 Morphine Vial* IV 4 mg Q4H PRN Administration SEVERE PAIN Oxycodone HCl 5 mg 06/29/18 16:57 07/02/18 08:17 Roxycodone Tab* PO 5 mg Q4H PRN Administration Mild to moderate pain Oxycodone HCl 15 mg 07/01/18 15:08 07/01/18 22:09 Roxycodone Tab* PO 15 mg Q4H PRN Administration Moderate to severe pain Polyethylene Glycol/Electrolytes 17 gm 06/30/18 09:00 07/02/18 08:18 Miralax* PO 17 gm DAILY [facility] Administration Rivaroxaban 15 mg 06/29/18 20:00 07/02/18 10:56 Xarelto(*) PO 15 mg 0800,1999 GIS[facility]LE Administration Vital Signs Temp Pulse Resp BP Pulse Ox 97.4 F 95 16 129/81 98 07/02/18 11:42 07/02/18 11:42 07/02/18 11:42 07/02/18 11:42 07/02/18 11:42 O/E: Pt in NAD HEENT: PERRLA, no JVD Lungs: Clear to auscultation b/l CVS: S1, S2+, regular Abd: Soft, BS+ Ext: No edema Skin: No rash Neuro: No focal defecits Labs: No new labs I/R: 27 y o f with recent dx of PE, provoked rom recent travel, OCP a/w chest pain, pleuritic sec to subpleural infarct No other concerning sx Feeling better c/w anticoagulation Will need rpt CTA in 3 months She understands not to use OCP any more For d/c today
--- NOTE | 2018-07-03 09:46 | DS ---
CC: Dr. Mtz DISCHARGE SUMMARY: DATE OF ADMISSION: 06/29/18 DATE OF DISCHARGE: 07/02/18 PRIMARY CARE PROVIDER: Dr. Mtz DISCHARGE DIAGNOSIS: 1. Intractable pain secondary to pulmonary infarct/pulmonary embolism. 2. Constipation. SECONDARY DIAGNOSES: 1. Obesity with a BMI of 31. 2. Anxiety. 2. Low back pain secondary to osteoarthritis due to an old sacral fracture. MEDICATION LIST: 1. Acetaminophen 650 mg p.o. q.6 hours p.r.n., fever or mild pain. 2. Alprazolam 0.25 mg p.o. q.4 hours p.r.n., anxiety. 3. Cetirizine 5 mg p.o. daily. 4. Cyclobenzaprine 10 mg p.o. t.i.d. as needed for muscle spasms. 5. Oxycodone 10 to 15 mg p.o. q.6 hours as needed for moderate to severe pain. 6. MiraLAX 17 g p.o. daily. 7. Rivaroxaban 15 mg p.o. q.12 hours to complete 20 days of treatment, then followed by rivaroxaban 20 mg p.o. daily. HOSPITAL COURSE: Mrs. Gifford is a 27-year-old lady with a past medical history as stated above that had just been discharged from [facility] [place] on 06/29/18, after she had bilateral PE on the day of dischar , the patient had complaints of left- sided chest pain that was thought to be secondary to her PE a nd pulmonary infarction. The patient was offered the option of staying in the hospital for further p ain management, but she felt she would be able to manage with oral pain medications at home. Unfortu nately, the same day, the patient stated the pain was unbearable and she returned to the hospital and was readmitted. She received morphine and progressive doses of oxycodone associated with acetaminophen and cyclobenza yamil with significant improvement of her symptoms. She was seen in consultation by pulmonology (Dr. Beckman) and she felt that the patient's chest pain w as likely secondary to pulmonary infarct in the setting of pulmonary embolism. The patient had no fe vers, no hemodynamic instability. She did not sync. There was a new embolism causing her pleuritic chest pain and she agreed that the patient was on optimal anticoagulation. As the patient did not pringle ve any significant right heart strain on recent echocardiogram. She felt that best management will b e control of pain and incentive spirometry use, and the patient received education regarding the risk for pneumonia if she developed fever, productive cough, chills, or shortness of breath, she should r eturn for further evaluation. The patient was constipated during the hospital stay and she received multiple medications for bowel movement, but she states she felt she will not be able to have a bowel movement in the hospital becau se she is "shy." She was discharged with the bowel regimen and she will continue to take the medicat ions at home. The patient received education about oxycodone and the fact that it can cause sedation. She was advi sed not to drive or operate any machinery. As discussed in her prior discharge summary, she will follow up with her primary care provider on at 9 a.m. I believe, she will benefit with repeat echo in 6 to 8 weeks. The recommendations to stay off work until next week still stand and depending on her symptoms, she m ay need longer period out of her job. DIET: Regular diet. ACTIVITIES: As tolerated. DISPOSITION: To home. STATUS WHILE IN THE HOSPITAL: Inpatient. Please keep in mind that this is a summarized version of this patient's hospital stay. If you need m ore information, please feel free to call me at [phone] or please obtain full medical records. TIME SPENT: Approximately 45 minutes was spent to complete this discharge. [id number]/[facility] #: [id number]
== END 2018-07-02 15:30 | disposition home or self-care (01) | DRG 134 ==
LOC: MEDTELE 16:42 → OBSVTOIN 07-01 15:08 → SSU 07-01 21:21
PROVIDERS: ADMIT Internal Medicine; ATTEND Internal Medicine
DX: I26.99 Other pulmonary embolism without acute cor pulmonale (principal); F41.9 Anxiety disorder, unspecified; E66.9 Obesity, unspecified; M47.818 Spondylosis without myelopathy or radiculopathy, sacral and sacrococcygeal region; K59.00 Constipation, unspecified; Z68.31 Body mass index [BMI] 31.0-31.9, adult; Z79.01 Long term (current) use of anticoagulants; Z88.0 Allergy status to penicillin; Z88.2 Allergy status to sulfonamides; Z82.49 Family history of ischemic heart disease and other diseases of the circulatory system; Z87.891 Personal history of nicotine dependence
CPT/HCPCS: 36415; 71046; 80048; 84484; 85025; 93005; A9270-GY; G0378; J2270

== ENCOUNTER 2018-07-03 17:10 | Emergency (ER) | payer BC ==
--- OUTSIDE RECORDS SUMMARY | 2018-07-03 17:23 | XMS REPORT ---
:1990 External Reference #:[id number] Demographics Phone Unavailable Preferred Language Unknown Marital Status Unknown Taoist Affiliation Unknown Race Unknown Ethnic Group Unknown Author Organization [facility] Address [address] [place] [id number] Phone [phone] Care Team Providers Name Role Phone Eduar Constantino M.D. 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
[2018-07-03 17:59] LABS: ABS Basophils 0 10^3/ul (0-0.2); ABS Eosinophils 0.2 10^3/ul (0-0.6); ABS Lymphocytes 2.1 10^3/ul (1.0-4.8); ABS Monocytes 0.4 10^3/ul (0-0.8); ABS Neutrophils 2.6 10^3/ul (1.5-7.7); ABS Nucleated RBC 0 10^3/ul; Eosinophil % 3.2 % (0-6); Hematocrit 38 % (35-47); Lymphocyte % 38.5 % (25-47); Mean Corpuscular HGB Conc 34 g/dl (31-36); Mean Corpuscular Hemoglobin 30 pg (27-31); Mean Corpuscular Volume 89 fL (80-97); Mean Platelet Volume 7.7 um3 (7.4-10.4); Nucleated Red Blood Cells % 0.1; Platelet Count 326 10^3/ul (150-450); Red Blood Count 4.31 10^6/ul (4.00-5.40); Red Cell Distribution Width 12 % (10.5-15); White Blood Count 5.3 10^3/ul (3.5-10.8)
[2018-07-03 18:14] LABS: INR 1.2 (0.77-1.02)
[2018-07-03 18:16] LABS: EGFR Non-African American 104.8 (>60)
--- NOTE | 2018-07-03 18:22 | RAD ---
INDICATION: Headaches. COMPARISON: CT October 07, 2005 TECHNIQUE: Noncontrast axial source images were acquired from the skull base to the vertex. FINDINGS: Ventricles/sulci: The ventricles and cisterns are normal in size and configuration for age. Brain parenchyma: There is no focal parenchymal finding, evidence of intracranial mass, or intracranial mass effect. Intracranial hemorrhage:None. Extra-axial spaces: There are no abnormal extra axial fluid collections or evidence of extra-axial mass. Calvarium: There is no calvarial fracture or other calvarial abnormality. Scalp: There is no evidence of scalp or extracalvarial soft tissue abnormality. Paranasal sinuses/mastoid: The paranasal sinuses and mastoid air cells are clear. Other: None. IMPRESSION: NEGATIVE EXAMINATION
--- NOTE | 2018-07-03 18:41 | ED ---
Headache - HPI Summary HPI Summary: Complains of headache, blurry vision, lightheadedness, difficulty focusing eyes , stilted conversation, N/T in left hand starting this afternoon. Symptoms are intermittent, and mild. Patient also complains of constipation, with no abdominal pain. Patient was recently started Xarelto 06/27/10 for bilateral PE. States ongoing CP for which she is taking oxycodone. Denies any worsening of symptoms. Denies fever, SOB, cough, sore throat,, N/V/D, abdominal pain, change in urine. Medical history is anxiety, PE. CTA chest on 06/27/18 showed bilateral PE with no right heart strain. - History Of Current Complaint Chief Complaint: EDDizziness Stated Complaint: DIZZY/HEADACHE Time Seen by Provider: 07/03/18 17:32 Hx Obtained From: Patient, Family/Chief Dispatcher Service Hx Last Menstrual Period: 08/26/17 Onset/Duration: Gradual Onset Initially Headache Was: Mild Currently Pain Is: Mild Timing: Intermittent, Lasting: Character: Dull Location of Headache: Frontal Aggravating Factor: Nothing Allevating Factors: Nothing - Allergies/Home Medications Allergies/Adverse Reactions: Allergies Allergy/AdvReac Type Severity Reaction Status Date / Time Penicillins Allergy Hives Verified 07/03/18 17:12 Sulfa (Sulfonamide Allergy Hives Verified 07/03/18 17:12 Antibiotics) PMH/Surg Hx/FS Hx/Imm Hx Endocrine/Hematology History: Reports: Hx Anticoagulant Therapy Denies: Hx Blood Transfusions, Hx Diabetes, Hx Sickle Cell Disease, Hx Thyroid Disease Cardiovascular History: Denies: Hx Angina, Hx Congenital Heart Disease, Hx Congestive Heart Failure, Hx Coronary Artery Disease, Hx Deep Vein Thrombosis, Hx Embolism, Hx Hypercholesterolemia, Hx Hypertension, Hx Peripheral Vascular Disease, Hx Rheumatic Fever, Hx Syncope, Hx Valvular Heart Disease Respiratory History: Denies: Hx Asthma, Hx Bronchopulmonary Dysplasia, Hx Chronic Bronchitis, Hx Chronic Obstructive Pulmonary Disease (COPD), Hx Cystic Fibrosis, Hx Lung Cancer , Hx Pleural Effusion, Hx Pneumonia GI History: Denies: Hx Crohn's Disease, Hx Diverticulosis, Hx Gall Bladder Disease, Hx Gastroesophageal Reflux Disease, Hx Gastrointestinal Bleed, Hx Hiatal Hernia, Hx Irritable Bowel, Hx Obstructive Bowel, Hx Ileostomy, Hx Pyloric Stenosis, Hx Ulcer History: Denies: Hx Benign Prostatic Hyperplasia, Hx Chronic Renal Failure, Hx Dialysis, Hx Kidney Infection, Hx Kidney Stones, Hx Renal Disease Musculoskeletal History: Comment Only: Other Musculoskeletal History - coccyx bone fx. Sensory History: Denies: Hx Cataracts, Hx Contacts or Glasses, Hx Eye Injury, Hx Eye Prosthesis, Hx Glaucoma, Hx Macular Degeneration, Hx Vision Problem, Hx Deafness , Hx Hearing Aid, Hx Hearing Problem, Other Sensory Impairments Opthamlomology History: Denies: Hx Cataracts, Hx Contacts or Glasses, Hx Eye Injury, Hx Eye Prosthesis, Hx Glaucoma, Hx Macular Degeneration, Hx Vision Problem, Other Sensory Impairments Neurological History: Denies: Hx Dementia, Hx Headaches, Hx Migraine, Hx Nerve Disease, Hx Seizures , Hx Transient Ischemic Attacks (TIA), Other Neuro Impairments/Disorders Psychiatric History: Reports: Hx Anxiety Denies: Hx Oppositional Winston Disorder, Hx Panic Disorder, Hx Schizophrenia, Hx of Violent Episodes Against Others - Surgical History Surgery Procedure, Year, and Place: tonsillectomy Infectious Disease History: No Infectious Disease History: Denies: Hx Clostridium Difficile, Hx Hepatitis, Hx Human Immunodeficiency Virus (HIV), Hx of Known/Suspected MRSA, Hx Shingles, Hx Tuberculosis, Hx Known/ Suspected VRE, Hx Known/Suspected VRSA, History Other Infectious Disease, Traveled Outside the [place] in Last 30 Days - Family History Known Family History: Negative: Renal Disease - Social History Alcohol Use: Rare Substance Use Type: Reports: None Smoking Status (MU): Former Smoker Type: Cigarettes Amount Used/How Often: 1/3 PPD Length of Time of Smoking/Using Tobacco: 10 years Have You Smoked in the Last Year: Yes Review of Systems Constitutional: Negative Positive: Blurred Vision ENT: Negative Positive: Chest Pain Respiratory: Negative Gastrointestinal: Negative Genitourinary: Negative Musculoskeletal: Negative Skin: Negative Positive: Headache Psychological: Normal All Other Systems Reviewed And Are Negative: Yes Physical Exam - Summary Physical Exam Summary: Neuro exam normal. Triage Information Reviewed: Yes Vital Signs On Initial Exam: Initial Vitals Temp Pulse Resp BP Pulse Ox 99.1 F 103 24 131/80 100 07/03/18 17:12 07/03/18 17:12 07/03/18 17:12 07/03/18 17:12 07/03/18 17:12 Vital Signs Reviewed: Yes Appearance: Positive: Well-Appearing Skin: Positive: Warm Head/Face: Positive: Normal Head/Face Inspection Eyes: Positive: Normal Neck: Positive: Supple Respiratory/Lung Sounds: Positive: Clear to Auscultation Cardiovascular: Positive: Normal Abdomen Description: Positive: Nontender Musculoskeletal: Positive: Normal Neurological: Positive: Normal, Unable to Assess Gait Psychiatric: Positive: Normal AVPU Assessment: Alert - [place] Coma Scale Best Eye Response: 4 - Spontaneous Best Motor Response: 6 - Obeys Commands Best Verbal Response: 5 - Oriented Coma Scale Total: 15 Diagnostics - Vital Signs Vital Signs Temp Pulse Resp BP Pulse Ox 07/03/18 17:12 99.1 F 103 24 131/80 100 - Laboratory Lab Results: Lab Results 07/03/18 07/03/18 07/03/18 Range/Units 17:52 17:52 17:52 WBC 5.3 (3.5-10.8) 10^3/ul RBC 4.31 (4.00-5.40) 10^6/ul Hgb 13.0 (12.0-16.0) g/dl Hct 38 (35-47) % MCV 89 (80-97) fL MCH 30 (27-31) pg MCHC 34 (31-36) g/dl RDW 12 (10.5-15) % Plt Count 326 (150-450) 10^3/ul MPV 7.7 (7.4-10.4) um3 Neut % (Auto) 49.4 (38-83) % Lymph % (Auto) 38.5 (25-47) % Pitkin % (Auto) 8.1 H (0-7) % Eos % (Auto) 3.2 (0-6) % Baso % (Auto) 0.8 (0-2) % Absolute Neuts (auto) 2.6 (1.5-7.7) 10^3/ul Absolute Lymphs (auto) 2.1 (1.0-4.8) 10^3/ul Absolute Monos (auto) 0.4 (0-0.8) 10^3/ul Absolute Eos (auto) 0.2 (0-0.6) 10^3/ul Absolute Basos (auto) 0 (0-0.2) 10^3/ul Absolute Nucleated RBC 0 10^3/ul Nucleated RBC % 0.1 INR (Anticoag Therapy) 1.20 H (0.77-1.02) APTT 34.2 (26.0-36.3) seconds Sodium 137 (135-145) mmol/L Potassium 3.9 (3.5-5.0) mmol/L Chloride 103 (101-111) mmol/L Carbon Dioxide 27 (22-32) mmol/L Anion Gap 7 (2-11) mmol/L BUN 9 (6-24) mg/dL Creatinine 0.67 (0.51-0.95) mg/dL Est GFR ( Amer) 126.8 (>60) Est GFR (Non-Af Amer) 104.8 (>60) BUN/Creatinine Ratio 13.4 (8-20) Glucose 115 H (70-100) mg/dL Calcium 9.1 (8.6-10.3) mg/dL Total Bilirubin 0.30 (0.2-1.0) mg/dL AST 12 L (13-39) U/L ALT 9 (7-52) U/L Alkaline Phosphatase 56 (34-104) U/L C-Reactive Protein 33.55 H (<8.01) mg/L Total Protein 7.1 (6.4-8.9) g/dL Albumin 3.7 (3.2-5.2) g/dL Globulin 3.4 (2-4) g/dL Albumin/Globulin Ratio 1.1 (1-3) Result Diagrams: 07/03/18 17:52 07/03/18 17:52 Lab Statement: Any lab studies that have been ordered have been reviewed, and results considered in the medical decision making process. - CT brain CT Interpretation: No Acute Changes CT Interpretation Completed By: Radiologist cta chest CT Interpretation: No Acute Changes - CT findings of acute pulmonary embolism, left-sided infiltrate and effusion. CT Interpretation Completed By: Radiologist Headache Course/Dx - Course Course Of Treatment: Complains of headache, blurry vision, lightheadedness, difficulty focusing eyes, stilted conversation, N/T in left hand starting this afternoon. Symptoms are intermittent, and mild. Patient also complains of constipation, with no abdominal pain. Patient was recently started Xarelto for bilateral PE. States ongoing CP for which she is taking oxycodone. Denies any worsening of symptoms. Denies fever, SOB, cough, sore throat,, N/V/D , abdominal pain, change in urine. Medical history is anxiety, PE. CTA chest on 06/27/18 showed bilateral PE with no right heart strain. Physical exam: Neuro exam normal. Discussed patient with hospitalist Dr. Wheeler regarding possible echo or CT for evaluation of right heart strain as source of symptoms. CT a chest negative for right heart strain. Per discussion with Dr. Wheeler: Not much benefit to admission. Patient already on Xarelto, so with essentially be for observation. Symptoms possible reaction to Xarelto. Suggested but possible switch to Eliquis. Pt has already invested in Xarelto, therefore does not wish to switch to Eliquis. Mildly tachycardic. Patient is anxious about her situation. Denies any worsening symptoms of chest pain or shortness of breath. Labwork unremarkable. Imaging shows no acute concerning changes since prior CTA. Patient prefers to go home and return for any new or worsening symptoms. Patient understands and approves of plan and will return for any concerning symptoms. - Diagnoses Provider Diagnoses: DURAN (headache), Lightheaded Discharge - Sign-Out/Discharge Documenting (check all that apply): Patient Departure - Discharge Plan Condition: Stable Disposition: HOME Patient Education Materials: Acute Headache (ED), Lightheadedness (ED) Referrals: Lisa Mtz MD [Primary Care Provider] - Additional Instructions: Continue to take Xarelto as directed. Return to the ED for any new or worsening symptoms. - Billing Disposition and Condition Condition: STABLE Disposition: Home
[2018-07-03] MEDS ORDERED: Iohexol 350* (CONTRAST) 500 ML MDV IV ONE (19:40)
--- NOTE | 2018-07-03 19:59 | RAD ---
INDICATION: Chest pain. Short of breath. Evaluate for pulmonary embolus. COMPARISON: Chest x-ray June 29, 2018 TECHNIQUE: Axial source images were obtained from the thoracic inlet to the hemidiaphragms following administration of [address] angiographic technique was utilized. Coronal and sagittal reconstructed images were acquired. CHEST FINDINGS: Neck/thyroid: The visualized neck to include the thyroid appear normal. Chest wall: There are no acute abnormalities of the bony thorax or chest wall. There is no supraclavicular, infraclavicular, or axillary lymphadenopathy. Lungs : There is infiltrate/consolidative change left lung base. There is minor right basilar dependent atelectasis The pulmonary interstitium appears normal. There are no endobronchial lesions. Cardiomediastinal structures: There are third order and distal acute pulmonary emboli involving the left lower lobe. There are additional, smaller, fourth order and distal upper lobe acute pulmonary emboli bilaterally The heart is normal in size. There is a small pericardial effusion. There is no evidence of aortic aneurysm or dissection. There is no mediastinal or hilar adenopathy. The esophagus appears normal. Pleura : Small moderate-sized left-sided pleural effusion. Other: None. IMPRESSION: CT FINDINGS OF ACUTE PULMONARY EMBOLI LEFT-SIDED FILTRATE AND EFFUSION. Findings called to ED.
[2018-07-03 20:36] VITALS: BP 132/75
== END 2018-07-03 20:35 | disposition home or self-care (01) ==
LOC: ED 17:10
DX: R51 Headache (principal); R42 Dizziness and giddiness
CPT/HCPCS: 36415; 70450; 71275; 80053; 82306; 82607; 82728; 85025; 85610; 85730; 86140; 93005; 99283; Q9967

== ENCOUNTER 2018-07-23 19:15 | Emergency (ER) | payer BC ==
--- OUTSIDE RECORDS SUMMARY | 2018-07-23 19:33 | XMS REPORT ---
:1990 External Reference #:[id number] Author Organization [facility] Address [address] [place] [address] Phone [phone] Care Team Providers Name Role Phone Lisa Mtz M.D. Primary Care Physician Unavailable Payers Type Date Identification Payment Subscriber Numbers Provider Health Maintenance Expires: Policy Number: [facility] (O) 11/18/2012 [id number] [facility] Ирина ) Group Name: [place] [address] PayID: [id number] [place] [address] Medigap Part B Expires: 11/18/2012 Policy Number: Tom Ramos [id number] [address] [place] [address] Medigap Part B Effective: Policy Number: [facility] Jerzy 07/03/2012 [id number] [facility] Expires: 11/18/2014 Group Number: [id number] Shiv Paula Group Name: [place] [address] Commercial Effective: Policy Number: Jorge Luis [facility] Jerzy C 11/19/2014 [id number] Medicaid [place] Expires: 04/17/2015 PayID: [id number] [address] [place] [address] Medigap Part B Effective: Policy Number: Aileen Hair 04/19/2015 [id number] [facility] Group Name: [employer] 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 Daily ETOH Use Rarely consumes alcohol Recreational Drug [...] Form Strength Qnty SIG Indications Ordering Provider Sertraline HCL 07/15 Active Tablets 50mg 30tab 1/2 po qd x F41.9 s 1 week then P. Blegen, 1 po qday M.D. for anxiety Lorazepam 07/15 Active Tablets 0.5mg 30tab take 1/2 to F41.9 s 1 tablet bid P. Blegen, prn anxiety M.D. Vitamin B-12 07/14 Active Tablets 1000mcg 1 by mouth every day- P. Blegen, sublingual- M.D. for vitamin b12 deficiency Vitamin D-3 07/14 Active Capsules 1000Unit 1 by mouth every day P. Blegen, For Vitamin M.D. D Deficiency Loratadine 09/14 Active Tablets 10mg (generic for claritin)- 1 P. Blegen, by mouth M.D. every day as needed allergies Multi Complete 06/14 Active Capsules occasionally Ritesh Salamanca /2014 PRAMOD Kemp Cyclobenzaprine Active Tablets 10mg Iva, HCL MD Leatha Xarelto Active Tablets 15mg 1 PO bid X Iva 21 Days Loreto Zhang Then Change To 20 MG Qday Xarelto Active Tablets 20mg Take 1 Unknown /0000 Tablet By Mouth Every Day Start After Completing 20 Days Of 15 Pain & Fever Active Tablets 325mg Take Two Unknown /0000 Tablets By Mouth Every 6Hours as Needed For Fever/Mild Pain Miralax 07/04 Hx Powder 3350NF 357gm 17 grams in K59.00 full glass Miladis Mtz, - of water M.D. 07/15 every day for constipation , hold for diarrhea Docusate Sodium 07/04 Hx Capsules 100mg 60cap 1-2 by mouth K59.00 s twice a day Miladis Ble, - for stool M.D. 07/15 soft Propranolol HCL 05/30 Hx Tablets 10mg 30tab 1 tab by F40.241 s mouth three Gutierrez, - times a day 07/04 as needed for acrophobia Vitamin B-12 03/25 Hx Tablets 1000mcg 1 by mouth every day- Miladis Mtz, - sublingual- M.D. 05/30 for vitamin b12 deficiency Azithromycin 10/25 Hx Tablets 250mg 6tabs take 2 J01.90 Preston tablets by uGtierrez, - mouth one 05/30 time take one daily for 4 days. Wait to fill until patient calls. Ergocalciferol 10/08 Hx Capsules [id number] 12cap take 1 s capsule by Miladis Mtz, - mouth every M.D. 05/30 week directed for vitamin d deficiency as directed Flexeril 07/20 Hx Tablets 5mg 30tab 1-2 tabs M53.3 Preston s daily for Heetderks, - muscle spasm 09/14 Metamucil Smooth 03/30 Hx Packet 28% 90uni 1 packet by K58.0 Martywnti Cheikh Harrison ts mouth daily Storm, Singles - [employer] 09/14 Cyclobenzaprine 05/06 Hx Tablets 10mg 15tab (flexeril)- 724.5 Lisa s 1 by mouth Miladis Ble, - twice a day M.D. 06/14 as needed muscle spasm Robitussin ac 04/10 Hx 300ml 1-2 teaspoon 465.8 Kayla /2013 by mouth Melina Gentile, - q4-6hr as M.D. 04/20 needed cough/pain Hydroxyzine HCL 04/10 Hx Tablets 10mg 30tab 1 or 2 po 465.8 Kayla /2013 s tid prn for Melina Gentile, - anxiety M.D. 06/14 Fluocinonide 11/13 Hx Ointment 0.05% 30gm apply 691.8 Shawnti R. sparignly to Storm, - affeceted [employer] 04/10 area bid prn /2013 Alprazolam 11/28 Hx Tablets 0.25mg 30tab 2-1 by Jeff s mouth every [place] - night at III, [employer] 07/15 bedtime as needed anxiety Sertraline HCL 10/09 Hx Tablets 50mg 135ta 1 and 1/2 po 296.35 bs qd P. Blegen, - M.D. 11/13 Hydroxyzine HCL 10/09 Hx Tablets 10mg 30tab 1 or 2 po Shawnti R. s tid prn for Storm, - anxiety [employer] 11/28 Azithromycin 07/27 Hx Tablets 250mg 6tabs 2 po today 461.0 Rosalina then 1 po Alysha, - daily for 4 M.D., R.D. Sertraline HCL 06/22 Hx Tablets 25mg 90tab one po 296.35 Shawnti R. s daily for Storm, - anxiety and [employer] 10/09 depression Fluoxetine HCL 01/12 Hx Tablets 10mg 1 po qd 300.00 Shawnti R. Storm, - [employer] 07/27 Azithromycin 12/15 Hx Tablets 250mg 6tabs 2 tabs po on 486 day one then P. Blegen, - 1 tab qd for M.D. 07/27 4 Azithromycin 09/27 Hx Tablets 250mg 6tabs 2 po today 466.0 Shawnti R. /2008 then 1 po Storm, - daily for 4 [employer] Robitussin ac 09/27 Hx 150ml 1-2 tsp po 466.0 Shawnti R. /2008 q4-6hr prn Storm, - cough/pain [employer] 07/27 Proventil HFA 08/03 Hx Aerosol 108mcg/Ac 1unit 2 puffs q 4 t s hours prn P. Blegen, - wheezing/ M.D. 11/27 cough Ergocalciferol 01/03 Hx Tablets 50,000Uni 12tab one po Three ts s Times Per P. Blegen, - Week Then M.D. 05/09 Recheck Bloodwork Ibuprofen 10/21 Hx Tablets 800mg 30tab One PO tid 625.3 Cherelle A. /2007 s With Food Skye, - prn F.N.P.C. 11/27 Asmanex 08/28 Hx Inhaler 220mcg 1unit Inhale One 466.0 Shawnti R. Twistihaler s Dose QHS For Storm, - Asthma, [employer] 09/11 Rinse Mouth After Use No Work 08/25 Hx please 466.0 Shawnti R. excuse due Storm, - to illness, [employer] 07/27 once feeling better Albuterol 08/25 Hx Aerosol 90mcg/Act 1Inha 2 puffs 466.0 Shawnti R. lr every 4-6 Storm, - hours if [employer] 11/27 needed for cough, wheeze or shortness of breath Return To Work 06/01 Hx full duty, 724.5 Cherelle A. no Skye, - restrictions F.N.P.C. 07/27 . hx of neck injury Zyrtec-D 03/03 Hx Tablets 5-120mg 60tab 1 po bid for 465.9 Shawnti R. /2007 ER 12HR s allergies Storm, - [employer] 11/27 Robitussin ac 03/03 Hx 150ml 1-2 tsp po 465.9 Shawnti R. /2007 q4-6hr prn Storm, - cough/pain [employer] 11/27 No School 03/03 Hx please 465.9 Martywnti R. excuse due Storm, - to illness, [employer] 07/27 when feeling better Ortho Tri-Cyclen 12/30 Hx Tablets 1tabs Use as Lisa Directed P. Blegen, - M.D. 11/27 Zithromax 07/24 Hx Tablets 500mg 3tabs 1 qd X 3 465.9 Cherelle A. Tri-Steve Days March, - Repeat After F.N.P.C. 08/03 10 Days SX Persist Zithromax Z-Steve 05/21 Hx Tablets 250mg 6tabs two po qd today and P. Blegen, - then one po M.D. 07/27 qd for days Phenergan 12/11 Hx Tablets 25mg 6tabs 1 per rectum q 6 hours P. Blegen, - prn nausea/ M.D. 07/27 vomiting Excuse From 10/29 Hx this is to Lisa confirm PT P. Blegen, - seen at our M.D. 07/27 office for acute visit Gentamycin Ophth 02/22 Hx Solution 3mg/ml 5ml 2 Drops qid 372.30 Cherelle A. Until SX , - Resolved For F.N.P.C. 11/27 Benzaclin Gel 07/17 Hx 50Gra use qhs up m to bid for P. Blegen, - acne as M.D. 02/22 Singulair 07/22 Hx Tablets 10mg 30tab one qd at hs s P. Blegen, - M.D. 02/22 Prednisone 07/22 Hx Tablets 10mg 10tab use 1 tab s bid x 5 P. Blegen, - days- take M.D. 02/22 with food Zyrtec 07/19 Hx Tablets 10mg 30tab 1 po qd s P. Blegen, - M.D. 02/22 Janet Tabs Hx Tablets 180mg 0tabs one qd Unknown /0000 - 07/19 Sudafed 00 Hx Tablets 30mg prn Unknown /0000 - 11/27 Loryna Hx Tablets 3-0.02mg Unknown /0000 - 07/03 Oxycodone HCL 00 Hx Tablets 5mg Iva, /0000 Deborah Zhang MD 07/15 Medications Administered in Office Medication Date Status [...] CPT Code Status Date Vaccine Lot # [id number] Given 10/02/2017 Influenza Virus Vaccine, Quadrivalent, 3 Yr > Quad, Preserv Free 35530 Given 08/17/2016 Influenza Virus Vaccine, Quadrivalent, 3 Yr > Quad, Preserv Free 01002 Given 05/19/2014 Tdap (Adacel) [id number] 92336 Given 11/28/2012 Menactra (meningococcal conjugate vaccine) [id number] 35411 Given 09/13/2011 Influenza Vaccine-Preservative Free 3 Yrs And [id number] 09510 Given 04/09/2007 Meningococcal Polysaccharide Vaccine [id number] 13974 Given 12/04/2006 Influenza Virus Vaccine, 3 Yrs And Above [id number] 07738 Given 04/18/2005 DT (Adult) 65127 Given 01/14/2002 Hep B Vaccine, Ped/Adol Dose 3 Dose (Engerix or Recombivax) 14478 Given 09/20/2001 Hep B Vaccine, Ped/Adol Dose 3 Dose VFC (Engerix or Recombivax) 94357 Given 07/17/2001 Hep B Vaccine, Ped/Adol Dose 3 Dose VFC (Engerix or Recombivax) 80265 Given 12/22/1993 DPT 34437 Given 12/22/1993 MMR (Measles,Mumps,Rubella) 16474 Given 12/22/1993 Opv (Poliovirus,Oral) 09343 Given 08/16/1992 DPT 33886 Given 08/16/1992 Hib (Hemophilus Influenza B) (Acthib) 53503 Given 07/28/1992 Opv (Poliovirus,Oral) 68370 Given 07/28/1992 MMR (Measles,Mumps,Rubella) 93763 Given 09/26/1990 Hib (Hemophilus Influenza B) (Acthib) 89606 Given 02/22/1990 DPT 85670 Given 1989 Opv (Poliovirus,Oral) 27672 Given 1989 DPT 64376 Given 1989 Opv (Poliovirus,Oral) 92358 Given 1989 DPT Vital Signs Date Vital Result Comment 07/15/2018 Weight 211.00 lb Weight in kg's 95.710 BP Systolic 122 mmHg BP Diastolic 74 mmHg Heart Rate 72 /min Body Temperature 99.0 F Respiratory Rate 16 /min O2 % BldC Oximetry 97 % 07/04/2018 Weight 212.00 lb Weight in kg's 96.163 BP Systolic 108 mmHg BP Diastolic 66 mmHg Heart Rate 95 /min Body Temperature 98.2 F Respiratory Rate 15 /min Height 68.5 inches 5'8.50" BMI (Body Mass Index) 31.8 kg/m2 O2 % BldC Oximetry 97 % 05/30/2018 Weight 213.00 lb Weight in kg's [...] Mass Index) 37.2 kg/m2 Last Menstrual Period [id number] 07/20/2016 Weight 243.00 lb Weight in kg's [...] Mass Index) 33.0 kg/m2 Last Menstrual Period [id number] 05/06/2015 Weight 212.00 lb Weight in kg's [...] Heart Rate 88 /min Last Menstrual Period [id number] 08/31/2008 Weight 213.00 lb Weight in kg's [...] Test Result H/L Range Note Laboratory test finding 07/03/2018 Ferritin 67.0 ng/mL 11-307 Vitamin B12 280 pg/mL 180-914 1 Vitamin D Total 25(Oh) 19.8 ng/mL Low 20-50 CBC Auto Diff 07/03/2018 White Blood Count 5.3 10^3/uL 3.5-10.8 Red Blood Count 4.31 10^6/uL 4.00-5.40 Hemoglobin 13.0 g/dL 12.0-16.0 Hematocrit 38 % 35-47 Mean Corpuscular Volume 89 fL 80-97 Mean Corpuscular Hemoglobin 30 pg 27-31 Mean Corpuscular HGB Conc 34 g/dL 31-36 Red Cell Distribution Width 12 % 10.5-15 Platelet Count 326 10^3/uL 150-450 Mean Platelet Volume 7.7 um3 7.4-10.4 Abs Neutrophils 2.6 10^3/uL 1.5-7.7 Abs Lymphocytes 2.1 10^3/uL 1.0-4.8 Abs Monocytes 0.4 10^3/uL 0-0.8 Abs Eosinophils 0.2 10^3/uL 0-0.6 Abs Basophils 0 10^3/uL 0-0.2 Abs Nucleated RBC 0 10^3/uL Granulocyte % 49.4 % 38-83 Lymphocyte % 38.5 % 25-47 Monocyte % 8.1 % High 0-7 Eosinophil % 3.2 % 0-6 Basophil % 0.8 % 0-2 Nucleated Red Blood Cells % 0.1 Comp Metabolic Panel 07/03/2018 Sodium 137 mmol/L 135-145 Potassium 3.9 mmol/L 3.5-5.0 Chloride 103 mmol/L 101-111 Co2 Carbon Dioxide 27 mmol/L 22-32 Anion Gap 7 mmol/L 2-11 Glucose 115 mg/dL High 70-100 Blood Urea Nitrogen 9 mg/dL 6-24 Creatinine 0.67 mg/dL 0.51-0.95 BUN/Creatinine Ratio 13.4 8-20 Calcium 9.1 mg/dL 8.6-10.3 Total Protein 7.1 g/dL 6.4-8.9 Albumin 3.7 g/dL 3.2-5.2 Globulin 3.4 g/dL 2-4 Albumin/Globulin Ratio 1.1 1-3 Total Bilirubin 0.30 mg/dL 0.2-1.0 Alkaline Phosphatase 56 U/L 34-104 Alt 9 U/L 7-52 Ast 12 U/L Low 13-39 Egfr Non- 104.8 >60 Egfr 126.8 >60 2 Laboratory test 07/03/2018 C Reactive Protein 33.55 mg/L High <8.01 finding Laboratory test 07/03/2018 Partial Thrombo 34.2 seconds 26.0-36.3 finding Time PTT Inr/Protime 07/03/2018 Inr 1.20 High 0.77-1.02 Laboratory test 02/06/2018 Surgical Pathology SEE RESULT BELOW 3, 4 finding Laboratory test 06/25/2017 Partial Thrombo 27.0 seconds 26.0-36.3 finding Time PTT CBC Auto Diff 06/12/2017 White Blood Count 7.2 10^3/uL 3.5-10.8 5 Red Blood Count 4.37 10^6/uL 4.0-5.4 5 Hemoglobin 13.1 g/dL 12.0-16.0 5 Hematocrit 40 % 35-47 5 Mean Corpuscular Volume 91 fL 80-97 5 Mean Corpuscular Hemoglobin 30 pg 27-31 5 Mean Corpuscular HGB Conc 33 g/dL 31-36 5 Red Cell Distribution Width 14 % 10.5-15 5 Platelet Count 256 10^3/uL 150-450 5 Mean Platelet Volume 9 um3 7.4-10.4 5 Abs Neutrophils 4.3 10^3/uL 1.5-7.7 5 Abs Lymphocytes 2.2 10^3/uL 1.0-4.8 5 Abs Monocytes 0.5 10^3/uL 0-0.8 5 Abs Eosinophils 0.1 10^3/uL 0-0.6 5 Abs Basophils 0 10^3/uL 0-0.2 5 Abs Nucleated RBC 0 10^3/uL 5 Granulocyte % 60.8 % 38-83 5 Lymphocyte % 30.4 % 25-47 5 Monocyte % 6.5 % 1-9 5 Eosinophil % 1.8 % 0-6 5 Basophil % 0.5 % 0-2 5 Nucleated Red Blood Cells % 0 5 Comp Metabolic Panel 06/12/2017 Sodium 138 mmol/L 133-145 5 Potassium 4.2 mmol/L 3.5-5.0 5 Chloride 106 mmol/L 101-111 5 Co2 Carbon Dioxide 29 mmol/L 22-32 5 Anion Gap 3 mmol/L 2-11 5 Glucose 86 mg/dL 70-100 5 Blood Urea Nitrogen 8 mg/dL 6-24 5 Creatinine 0.64 mg/dL 0.51-0.95 5 BUN/Creatinine Ratio 12.5 8-20 5 Calcium 9.1 mg/dL 8.6-10.3 5 Total Protein 6.7 g/dL 6.4-8.9 5 Albumin 4.0 g/dL 3.2-5.2 5 Globulin 2.7 g/dL 2-4 5 Albumin/Globulin Ratio 1.5 1-3 5 Total Bilirubin 0.40 mg/dL 0.2-1.0 5 Alkaline Phosphatase 40 U/L 34-104 5 Alt 10 U/L 7-52 5 Ast 16 U/L 13-39 5 Egfr Non- 111.3 >60 5 Egfr 143.2 >60 5, 6 Tick-Borne Panel PCR Blood 06/12/2017 Babesia microti PCR Negative Negative 5 Babesia ducani Negative Negative 5 Babesia divergens/Mo-1 Negative Negative 5, 7 Anaplasma phagocytophilum Negative Negative 5 Ehrlichia chaffeensis Negative Negative 5 Ehrlichia ewingii/canis Negative Negative 5 Ehrlichia muris-like Negative Negative 5, 8 B. miyamotoi PCR, B Negative Negative 5, 9 Lyme Western Blot 06/12/2017 Lyme Disease IgG Ab WB Negative Negative 5 Lyme Disease IgG Bands Present No bands detecte <SEE NOTE> kDa 5, 10 Lyme Disease IgM Ab WB Negative Negative 5 Lyme Disease IgM Bands Present No bands detecte <SEE NOTE> kDa 5, 11 Lyme Disease Interpretation See Comment 5, 12 Laboratory test finding 06/12/2017 Vitamin D Total 25(Oh) 30.8 ng/mL 30- 50 5, 13 Vitamin B12 1392 pg/mL High 180-914 5, 14 Inr/Protime 06/12/2017 Inr 0.93 0.89-1.11 5 Poc Urinalysis 03/06/2017 Poc Glucose, Urine Negative Negative Poc Bilirubin, Urine 1+ Negative Poc Ketone, Urine Trace Negative Poc Specific Meta, Urine 1.025 1.010-1.030 Poc Blood, Urine Negative Negative Poc pH, Urine 6.0 5-9 Poc Protein, Urine Trace Negative Poc Urobilinogen, Urine 0.2 Negative Poc Nitrite, Urine Negative Negative Poc Leukocytes, Urine Negative Negative Poc Color, Urine Dark yellow Poc Clarity, Urine Clear 15 Laboratory test finding 02/23/2017 Vitamin B12 714 pg/mL 180-914 16 Vitamin D Total 25(Oh) 27.1 ng/mL Low 30-50 17 Laboratory test finding 09/14/2016 Cytology SEE RESULT BELOW 18 Lipid Profile (Trig/Chol/HDL) 09/14/2016 Triglycerides 40 mg/dL 19 Cholesterol 127 mg/dL 20 HDL Cholesterol 67.9 mg/dL 21 LDL Cholesterol 51 mg/dL 22 Urine DIP 09/14/2016 Leukocytes neg Neg Urine Nitrites neg Neg Urobilinogen norm Norm Total Protein, Urine neg Neg Urine pH 5 5-6 Urine Blood neg Neg Specific Meta 1.015 1.01-1.02 Urine Ketones neg Neg Urine Bilirubin neg Neg Urine Glucose norm Norm GC/Chlamydia Amplified Rna 09/14/2016 Chlamydia trachomatis Rna Negative Negative Neisseria gonorrhoeae (GC) Rna Negative Negative Laboratory test finding 09/14/2016 TSH (Thyroid Stim 1.98 mcIU/mL 0.34- 5.60 23 Horm) Free T4 (Free Thyroxine) 0.88 ng/dL 0.61-1.12 24 Vitamin B12 203 pg/mL 180-914 25 Vitamin D Total 25(Oh) 14.8 ng/mL Low 30-50 26 Ferritin 15.6 ng/mL 11-307 27 HIV 1&2 AB Self Referred Nonreactive Nonreactive 28 Syphillis Igg W/Reflex RPR Nonreactive Nonreactive 29 Comp Metabolic Panel 09/14/2016 Sodium 138 mmol/L [...] Egfr Non- 109.3 >60 Egfr 140.6 >60 30 CBC Auto Diff 09/14/2016 White Blood Count [...] 0-2 Nucleated Red Blood Cells % 0.8 Urine DIP 06/14/2015 Specific Meta 1.010 1.01-1.02 Urine pH 7 High 5-6 Leukocytes NEG Neg Urine Nitrites NEG Neg Total Protein, Urine NEG Neg Urine Glucose NORM Norm Urine Ketones NEG Neg Urobilinogen NORM Norm Urine Bilirubin NEG Neg Urine Blood NEG Neg Laboratory test finding 06/14/2015 Cytology SEE RESULT BELOW 31 Urine DIP 05/06/2015 Specific Meta 1.015 1.01-1.02 Urine pH 5 5-6 Leukocytes trace Neg Urine Nitrites neg Neg Total Protein, Urine neg Neg Urine Glucose norm Norm Urine Ketones neg Neg Urobilinogen 1 High Norm Urine Bilirubin neg Neg Urine Blood neg Neg Throat-Beta Strept 02/22/2015 Throat Beta Strep Culture (SEE NOTE) 32 Stool Culture 09/13/2014 Stool Culture (SEE NOTE) 33 Laboratory test finding 09/13/2014 O P: Giardia/Cryptospor Screen (SEE NOTE ) 34 E.coli O157:H7 Culture (SEE NOTE) 35 Urine DIP 10/31/2011 Leukocytes TRACE Neg Urine Nitrites NEG Neg Urine pH 5 5-6 Total Protein, Urine NEG Neg Urine Glucose NORM Norm Urine Ketones NEG Neg Urobilinogen NORM Norm Urine Bilirubin NEG Neg Urine Blood 250+ MENSES High Neg Specific Meta NA Low 1.01-1.02 CBC Auto Diff 04/10/2011 [...] mmol/L 22-32 Anion Gap 7.0 mmol/L 2-11 36 Glucose 89 mg/dL 70-100 BUN 16 mg/dL 6-24 Creatinine 0.60 mg/dL 0.50-1.40 One Over Creatinine 1.60 BUN/Creatinine Ratio 26.7 High 8-20 Calcium 9.4 mg/dL 8.1-9.9 Total Protein 6.9 GM/DL 6.2-8.1 Albumin 4.1 GM/DL 3.6-5.4 Globulin 2.8 GM/DL 2-4 Albumin/Globulin Ratio 1.5 1-3 Bilirubin Total 0.5 mg/dL 0.4-1.5 37 Alkaline Phosphatase 51 U/L 40-122 Alt (SGPT) 14 U/L 14-54 Ast (Sgot) 19 U/L 12-42 eGFR Non- 126.2 > 60 eGFR 162.3 > 60 38 Urinalysis W/Microscopic 04/10/2011 Ua Color YELLOW Yellow Appearance-Urine TURBID Clear Specific Meta-Ur 1.029 1.010-1.030 Esterase-Urine 2+ Negative Nitrite NEGATIVE Negative [place]-Lh-JGK NEGATIVE Negative Protein-Urine TRACE Negative PH-Urine 7.5 5-9 Blood-Urine 2+ Negative Ketones-Urine NEGATIVE Negative Bilirubin-Ur NEGATIVE Negative Glucose-Urine NEGATIVE Negative WBC-Urine 5-10 0-5 RBC-Urine 0-2 0-2 Epith Cells-Ur FEW None Bacteria-Urine 3+ None Amorphous Sed-U 3+ None Urine Culture & 04/10/2011 Urine Culture SN1 39 Sensitivi Sensitivi Laboratory test finding 04/23/2009 Vitamin D, 25 Oh 39.1 ng/mL 32.0- 100.0 40 Laboratory test finding 02/11/2009 Vitamin D, 25 Oh 8.1 ng/mL Low 32.0- 100.0 41 Vitamin B-12 522 pg/mL 42 Laboratory test finding 12/31/2008 TSH (Thyrotropin) 1.840 [...] D, 25 Oh 15.4 ng/mL Low 32.0-100.0 43 Vitamin B-12 281 pg/mL 44 Ferritin 16.1 ng/ml 10.0-291.0 GFR (Calculated) >60 45 Laboratory test finding 09/20/2007 Platelet Count 337 CUMM 150-450 Ebv Acute Infection Abs 09/12/2007 Ebna-1(Nuclear 3.41 INDEX Negative 46 , 47 Ag),Igg Ebv AB Vca, Igm 0.06 INDEX Negative 46, 48 Ebv Ea-D(Early Ag),Igg 0.87 INDEX Negative 46, 49 . Ebv Interpretation SEE COMMENT 46, 50 Ebv AB Vca, Igg 4.45 INDEX Negative 46, 51 CBC 09/11/2007 WBC 8.3 x103 4.3-10.9 RBC 4.63 x106 3.80-5.30 Hemoglobin 12.6 g/dL 11.8-15.8 Hematocrit 40.0 % 35.0-47.0 MCV 86.4 fl 82.0-98.0 MCH 27.2 pg Low 27.5-33.5 MCHC 31.5 g/dL Low 32.0-36.0 RDW 14.0 % 11.5-14.5 Platelet Count * x103 130-400 52 MPV 11.8 fl High 6.5-10.5 Segmented Neutrophils 67.0 % 44.0-74.0 Band 0.0 % 0.0-4.0 Lymphocytes 23.0 % 15.0-45.0 Monocytes 7.0 % 2.0-13.0 Eosinophils 3.0 % 0.0-6.0 Basophils 0.0 % 0.0-2.0 Neutrophil Absolute 5.6 x103 1.4-7.0 Lymphocytes Absolute 1.9 x103 1.0-3.4 Monocyte Absolute 0.6 x103 0.2-1.0 Eosinophil Absolute 0.2 x103 0.0-0.5 Basophil Absolute 0.0 x103 0.0-0.2 Platelet Clumps Slight Laboratory test finding 09/11/2007 Ferritin 6.3 ng/ml Low 10.0-291.0 Comprehensive Metabolic 09/11/2007 Glucose 100 mg/dL 70-100 [...] mg/dL Low 0.30-1.20 Laboratory test finding 09/11/2007 TSH (Thyrotropin) 1.530 uIU/ml 0.350- 5.500 Hawkins Test NEGATIVE CBC With Electronic Diff 09/20/2006 White Blood [...] 17 % High 10.5-15 Laboratory test finding 09/20/2006 Ferritin < 10 NG/ML Low 11.0-307 Comp Metabolic Panel 09/20/2006 One Over Creatinine 1.66 Anion Gap 8.0 mmol/L 2-11 53 Albumin/Globulin Ratio 1.2 1-3 Albumin 3.7 GM/DL [...] 0.6 mg/dL 0.5-1.4 Laboratory test finding 09/20/2006 TSH 1.59 MIU/ML 0.34-5.60 Vitamin B12 368 pg/mL 180-914 Monospot 09/20/2006 Hawkins Internal Control OKAY Monospot NEGATIVE Negative Laboratory test finding 08/09/2005 Strep Screen neg Neg 1 Normal Range 180 to 914 Indeterminate Range 145 to 180 Deficient Range <145 2 Because ethnic data is not always readily [...] 15-29 5 Kidney failure <15 (or dialysis) 3 1025-A:Morphology: irregular brown macule;DDX: Dysplastic Nevus;Location: right proximal upper ar 4 SEE RESULT BELOW Name: JERZY RAMOS : [address]: Edith Gimenez MD Acct: [id number] Unit: [id number] AGE: 27 Location: [facility] Re02/06/18 SEX: F Status: REG REF SPEC: [id number] JASMIN: 02/06/18- SUBM DR: Edith Gimenez MD REQ: [id number] RECD: 02/06/181354 STATUS: JEAN HERNANDEZ DR: Lisa Mtz MD _ ORDERED: LEVEL 4 COMMENTS: [id number] FINAL DIAGNOSIS Skin, right proximal upper arm, [...] 0929 END OF REPORT DEPARTMENT OF PATHOLOGY, [address] [place] [address] Tip Yao M.[address]. Director [facility] # [id number] [phone] [id number] 6 Because ethnic data is not always [...] 5 Kidney failure <15 (or dialysis) 7 ADDITIONAL INFORMATION This test was developed and its performance characteristics determined by [facility] in a manner consistent with CLIA requirements. This test has not been cleared or approved by the U.S. Food and Drug Administration. 8 ADDITIONAL INFORMATION This test was developed and its performance characteristics determined by [facility] in a manner consistent with CLIA requirements. This test has not been cleared or approved by the U.S. Food and Drug Administration. 9 ADDITIONAL INFORMATION This test was developed and its performance characteristics determined by [facility] in a manner consistent with CLIA requirements. This test has not been cleared or approved by the U.S. Food and Drug Administration. Test Performed by: [facility] - [address] [address] 10 No bands detected 11 No bands detected 12 Specific serologic response to B. burgdorferi infection [...] screening test (e.g., EIA). Test Performed by: [facility] - [address] [address] 13 [id number] Normal Range 180 to 914 Indeterminate Range 145 to 180 Deficient Range <145 15 [employer] Frozen Dessert: [id number] Normal Range 180 to 914 Indeterminate Range 145 to 180 Deficient Range <145 17 [id number] SEE RESULT BELOW Name: JERZY RAMOS : [address]: Lisa Mtz MD Acct: [id number] Unit: [id number] AGE: 26 Location: [facility] Re09/14/16 SEX: F Status: REG REF SPEC: [id number] JASMIN: 09/14/161148 [facility]: Lisa Mtz MD REQ: [id number] RECD: 09/14/16 STATUS: SOUT _ ORDERED: IMAGE ANALYSIS COMMENTS: [id number] FINAL DIAGNOSIS Negative for Intraepithelial lesion or [...] was evaluated with the assistance of the IoxusPrep Test Imaging System. Due to cytologic findings at the quality assurance technician microscope, comprehensive manual rescreening by a Assistant Manager Of Operations may be required. The Pap Smear is [...] performed at Main Lab DEPARTMENT OF PATHOLOGY, [address] [place] [address] Tip Yao M.D. Director [facility] # [id number] Desirable <150 Borderline high 150-199 High 200-499 Very High >500 20 Desirable <200 Borderline high 200-239 High >239 21 Low <40 Desirable: 40-60 High: >60 22 Desirable: <100 mg/dL Near Optimal: 100-129 mg/dL Borderline High: 130-159 mg/dL High: 160-189 mg/dL Very High: >189 mg/dL 23 [id number] 25 Normal Range 180 to 914 Indeterminate Range 145 to 180 Deficient Range <145 26 [id number] It is recognized that currently available assays [...] 95% confidence interval of 99.78 to 99.96%. 29 Warning: A positive result is not useful for establishing a diagnosis of syphilis. In most situations, such a result may reflect a prior treated infection; a negative result can exclude a diagnosis of syphilis except for incubating or early primary disease. 30 Because ethnic data is not always readily [...] 15-29 5 Kidney failure <15 (or dialysis) 31 SEE RESULT BELOW Name: JERZY RAMOS : [address]: Ritesh Kemp NP Acct: [id number] Unit: [id number] AGE: 24 Location: [facility] Re06/14/15 SEX: F Status: REG REF SPEC: [id number] JASMIN: 06/14/150925 [address] DR: Ritesh Kemp NP REQ: [id number] RECD: 07/27/15-1245 STATUS: SOUT _ ORDERED: IMAGE ANALYSIS, HPV [...] results available. Signed (signature on file) Lalitha Whitt 06/15/15 7438 This Pap test was evaluated with the assistance of the Peachp Test Imaging System. Due to cytologic findings at the quality assurance technician microscope, comprehensive manual rescreening by a Assistant Manager Of Operations may be required. The Pap Smear is [...] performed at Main Lab DEPARTMENT OF PATHOLOGY, [facility] [address] [place], [place] [address] Tip Yao M.D. Director [facility] # [id number] RUN DATE: 02/24/15 [facility] LAB LIVE PAGE 1 RUN TIME: 0804 [facility] [address] [place], [place] [address] Specimen Inquiry Name: JERZY RAMOS : [address]: Naldo Cartwright MD Acct: [id number] Unit: [id number] AGE: 24 Location: [facility] Re02/22/15 SEX: F Status: DEP ER SPEC: [id number] JASMIN: 02/22/15-[address] [facility] [address]: Naldo Cartwright MD REQ: [id number] RECD: 02/22/15 STATUS: KEV HERNANDEZ DR: Lisa Mtz MD _ SOURCE: THROAT SPDESC: ORDERED: Throat Beta Str Procedure Result Verified Site Throat Beta Strep Culture Final 02/24/15- 803 ML Negative For Group A Beta Streptococcus * ML - MAIN LAB ([facility]) . END OF REPORT * ML=Testing performed at Main Lab DEPARTMENT OF PATHOLOGY, [facility] [address] [place], [place] [address] Tip Yao M.D. Director CLIA # [id number] RUN DATE: 09/14/14 [facility] LAB LIVE PAGE 1 RUN TIME: 1863 [facility] [place], [place] [address] Specimen Inquiry Name: JERZY RAMOS : [address]: Christy Spivey MD Acct: [id number] Unit: [id number] AGE: 24 Location: [facility] Re09/12/14 SEX: F Status: DEP ER SPEC: [id number] JASMIN: 09/13/[address] [facility] [address]: Christy Spivey MD REQ: [id number] RECD: 09/13/14 STATUS: RES [facility] DR: Lisa Mtz MD _ SOURCE: STOOL SPDESC: ORDERED: E.coli O157:H7, Stool Culture, C. diff Amp DNA, O P: Konrad/Crypt Procedure Result Verified Site E.coli O157:H7 Culture [...] performed at Main Lab DEPARTMENT OF PATHOLOGY, [facility] [place] [address] Tip Yao M.D. Director [facility] # [id number] RUN DATE: 09/14/14 [facility] LAB LIVE PAGE 2 RUN TIME: [address] [place] [address] Specimen Inquiry Patient: JERZY RAMOS [id number] (Continued) Specimen: [id number] Collected: 09/13/14 Received: 09/13/14-1230 (Continued) Procedure Result Verified Site C. difficile Amplified DNA Final (continued) 09/13/14- 1433 up to 50% and higher have been reported in infants and rates up to 32% in cystic fibrosis patients. O P: Giardia/Cryptospor Screen PENDING END OF REPORT * ML=Testing performed at Main Lab DEPARTMENT OF PATHOLOGY, [facility] [place] [address] Tip Yao M.D. Director [facility] # [id number] RUN DATE: 09/14/14 [facility] LAB LIVE PAGE 1 RUN TIME: 1413 [facility] [place], [place] [address] Specimen Inquiry Name: JERZY RAMOS : [address]: Chrsity Spivey MD Acct: [id number] Unit: [id number] AGE: 24 Location: [facility] Re09/12/14 SEX: F Status: DEP ER SPEC: [id number] JASMIN: 09/13/[address] [facility] [address]: Christy Spivey MD REQ: [id number] RECD: 09/13/14 STATUS: RES OTHR DR: Lisa Mtz MD _ SOURCE: STOOL SPDESC: ORDERED: E.coli O157:H7, Stool Culture, C. sheng Eastman DNA, O P: Konrad/Crypt Procedure Result Verified Site E.coli O157:H7 Culture [...] performed at Main Lab DEPARTMENT OF PATHOLOGY, [facility] [place] [address] Tip Yao M.D. Director [facility] # [id number] RUN DATE: 09/14/14 [facility] LAB LIVE PAGE 2 RUN TIME: 2463 [facility] [place], [place] [address] Specimen Inquiry Patient: JERZY RAMOS [id number] (Continued) Specimen: [id number] Collected: 09/13/14 Received: 10 (Continued) Procedure Result Verified Site C. difficile Amplified DNA Final (continued) 09/13/141432 up to 50% and higher have been reported in infants and rates up to 32% in cystic fibrosis patients. O P: Giardia/Cryptospor Screen Final 09/14/14- 1412 ML Organism 1 Neg Cryptosporidium/Giardia Giardia and cryptosporidium antigen testing performed by enzyme immunoassay. If patient is immunocompromised or has traveled to or is from a developing country, a full ova and parasite exam with microscopic (OPMIC) is recommended. All samples will be held one month in case full ova and parasite testing is requested. Contact the Microbiology Department at [phone]. TEST LIMITATIONS: As with all diagnostic procedures, [...] performed at Main Lab DEPARTMENT OF PATHOLOGY, [facility] [place], [place] [address] Tip Yao M.D. Director [facility] # [id number] RUN DATE: 09/15/14 [facility] LAB LIVE PAGE 1 RUN TIME: 1030 [facility] [place], [place] [address] Specimen Inquiry Name: JERZY RAMOS : [address]: Christy Spivey MD Acct: [id number] Unit: [id number] AGE: 24 Location: [facility] Re09/12/14 SEX: F Status: DEP ER SPEC: [id number] JASMIN: 09/13/[address] [facility] [address]: Christy Spivey MD REQ: [id number] RECD: 09/13/14123 STATUS: COMP [facility] DR: Lisa Mtz MD _ SOURCE: STOOL [...] performed at Main Lab DEPARTMENT OF PATHOLOGY, [facility] [address] [place], [place] [address] Tip Yao M.D. Director [facility] # [id number] RUN DATE: 09/15/14 [facility] LAB LIVE PAGE 2 RUN TIME: 1030 [facility] [place], [place] [address] Specimen Inquiry Patient: JERZY RAMOS [id number] (Continued) Specimen: [id number] Collected: 09/13/14 Received: 09/13/14 (Continued) Procedure Result Verified Site Shiga Toxin [...] is requested. Contact the Microbiology Department at [phone]. TEST LIMITATIONS: As with all diagnostic procedures, the results obtained should be used in conjunction with other clinical information available the physician, including confirmation by another method. Negative results can occur in samples CONTINUED ON NEXT PAGE * ML=Testing performed at Main Lab DEPARTMENT OF PATHOLOGY, [facility] [place] [address] Tip Yao M.D. Director [facility] # [id number] RUN DATE: 09/15/14 [facility] LAB LIVE PAGE 3 RUN TIME: [address] [place] [address] Specimen Inquiry Patient: JERZY RAMOS [id number] (Continued) Specimen: [id number] Collected: 09/13/14 Received: 09/13/14-1 (Continued) Procedure Result Verified Site O P: [...] performed at Main Lab DEPARTMENT OF PATHOLOGY, [address] [place] [address] Tip Yao M.D. Director [facility] # [id number] 36 Anion gap measurement may be of limited value in the presence of any alkalosis, especially in a combined acid base disorder. . 37 A metabolite of Naproxen, O-desmethylnaproxen, has been shown to interfere with the Jendrassik-Crumpton method for measuring total bilirubin. Samples from patients who have taken Naproxen have shown spurious elevation in total bilirubin levels. 38 Because ethnic data is not always readily [...] 15-29 5 Kidney failure <15 (or dialysis) 39 SCANT NORMAL URETHRAL OR PERINEAL TELMA 40 Recent studies consider the lower limit of 32.0 ng/mL to be a threshold for optimal health. [facility]. J Nutr. 2004;135(2):317-22. 41 Recent studies consider the lower limit of 32.0 ng/mL to be a threshold for optimal health. [facility]. J Nutr. 2004;135(2):317-22. 42 Greater than or equal to 211 is normal. . 43 Recent studies consider the lower limit of 32.0 ng/mL to be a threshold for optimal health. [facility]. J Nutr. 2004;135(2):317-22. 44 Greater than or equal to 211 is normal. . 45 mL/min/1.73m2 . Normal Function or Mild Renal [...] for creatinine ([facility] Int Med 139/2 137-149, 2003), as recommended by the National Kidney Disease [...] drugs that are excreted by the kidneys. 46 Specimen from 09-11-07 add to [id number] < or=0.90 Negative 0.91 - 1.09 Indeterminate > or=1.10 Positive 48 < or=0.90 Negative 0.91 - 1.09 Indeterminate > or=1.10 Positive 49 < or=0.90 Negative 0.91 - 1.09 Indeterminate > or=1.10 Positive 50 Acute Convalescent Chronic or Old Susceptible Infection Phase Reactivated Infection EBNA - - + + - + VCA-IgG - + - + + + - VCA-IgM - + + - - - EA-IgG - + - + - + - Tamez: + Antibody Present - Antibody Absent + - Antibody Present or Absent 51 < or=0.90 Negative 0.91 - 1.09 Indeterminate > or=1.10 Positive 52 (Unable to give Plt count due to Plt clumping.) 53 Anion gap measurement may be of limited value in the presence of any alkalosis, especially in a combined acid base disorder. . Procedures Date CPT Code Description Status 01/12/2010 18135 EKG, at Least 12 Leads w/Interpretation and Report Completed 06/22/2009 86554 Therapeutic,Prophylactic,Or Diagnostic Inj,SC/Im Completed Specify Drug 04/23/2009 40305 Therapeutic,Prophylactic,Or Diagnostic Inj,SC/Im Completed Specify Drug 03/04/2009 38945 Therapeutic,Prophylactic,Or Diagnostic Inj,SC/Im Completed Specify Drug 01/28/2009 05218 Therapeutic,Prophylactic,Or Diagnostic Inj,SC/Im Completed Specify Drug 01/21/2009 72565 Therapeutic,Prophylactic,Or Diagnostic Inj,SC/Im Completed Specify Drug 01/14/2009 68184 Therapeutic,Prophylactic,Or Diagnostic Inj,SC/Im Completed Specify Drug 01/07/2009 60984 Therapeutic,Prophylactic,Or Diagnostic Inj,SC/Im Completed Specify Drug 08/25/2008 00927 Nebulizer Treatment Completed 09/06/2007 68268 Multiple Allergy Shot Administrat Completed 2007 08743 Multiple Allergy Shot Administrat Completed 07/26/2007 15422 Multiple Allergy Shot Administrat Completed 07/12/2007 46070 Multiple Allergy Shot Administrat Completed 06/20/2007 86925 Multiple Allergy Shot Administrat Completed 06/20/2007 72104 Allergy Shot Administration Completed 06/06/2007 17817 Multiple Allergy Shot Administrat Completed 05/28/2007 07930 Multiple Allergy Shot Administrat Completed 05/21/2007 61908 Multiple Allergy Shot Administrat Completed 05/14/2007 17140 Multiple Allergy Shot Administrat Completed 02/26/2007 00313 Multiple Allergy Shot Administrat Completed 02/26/2007 19009 Allergy Shot Administration Completed 01/17/2007 83122 Multiple Allergy Shot Administrat Completed 01/01/2007 16851 Multiple Allergy Shot Administrat Completed 12/18/2006 79752 Multiple Allergy Shot Administrat Completed 12/04/2006 29001 Multiple Allergy Shot Administrat Completed 12/04/2006 58608 Allergy Shot Administration Completed 10/22/2006 65113 Multiple Allergy Shot Administrat Completed 10/15/2006 71813 Multiple Allergy Shot Administrat Completed 10/02/2006 32047 Multiple Allergy Shot Administrat Completed 09/10/2006 15043 Multiple Allergy Shot Administrat Completed 09/03/2006 61267 Multiple Allergy Shot Administrat Completed 09/03/2006 22659 Allergy Shot Administration Completed 08/27/2006 27988 Multiple Allergy Shot Administrat Completed 08/13/2006 39872 Multiple Allergy Shot Administrat Completed 08/13/2006 52940 Allergy Shot Administration Completed 08/06/2006 90108 Multiple Allergy Shot Administrat Completed 07/30/2006 16602 Multiple Allergy Shot Administrat Completed 07/30/2006 07336 Allergy Shot Administration Completed 07/24/2006 77155 Multiple Allergy Shot Administrat Completed 07/16/2006 97014 Multiple Allergy Shot Administrat Completed 07/09/2006 58385 Multiple Allergy Shot Administrat Completed 07/02/2006 99935 Multiple Allergy Shot Administrat Completed 06/25/2006 81210 Multiple Allergy Shot Administrat Completed Encounters Type Date Location Provider CPT E/M Dx Office Visit 07/15/2018 3:15p Main Office Lisa Mtz M.D. 11417 I26.99 F41.9 E53.8 E55.9 N92.0 Office Visit 07/04/2018 9:30a Main Office Lisa Mtz M.D. 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 22826 Z00.01 R53.83 Z13.220 Z11.3 L20.9 E61.1 Office Visit 07/20/2016 8:45a [place] [address] M53.3 Office Visit 06/29/2016 3:30p Main Office Ritesh Kemp [employer]-C 33984 K11.9 Office Visit 03/30/2016 11:15a Main Office Ritesh Kemp [employer] EV[employer]IVER-C 56718 R10.9 K58.0 Office Visit 06/14/2015 8:45a Main Office Ritesh Kemp [employer] EV[employer] DRIVER-C 18280 V70.0 Office Visit 05/06/2015 9:30a Main Office Lisa Mtz M.D. 26811 724.5 Office Visit 05/19/2014 2:15p Main Office Ritesh Kemp, SPECIAL EVENTS DRIVER-C 71220 892.0 V06.1 Office Visit 04/10/2014 10:45a Main Office Kayla Gentile M.D. 00864 465.8 Office Visit 11/13/2013 10:30a Main Office Ritesh Kemp [employer] EV[employer]IVER-C 52952 691.8 300.00 Office Visit 11/28/2012 11:45a Main Office Lisa Mtz M.D. 62291 300.00 V03.89 Office Visit 10/31/2011 8:00a Main Office France SalomonPRAMOD alejandro 59892 V70.0 Office Visit 10/09/2011 10:30a Main Office HAYLEE MontoyaP-C 82743 296.35 728.85 Office Visit 07/27/2011 11:00a Main Office Rosalina Encarnacion M.D., R.Jada 24634 461.0 Office Visit 07/07/2011 3:15p Main Office JUJU Montoya-C 03310 296.35 Office Visit 06/22/2011 9:45a Main Office JUJU Montoya-C 05471 296.35 Office Visit 07/09/2010 11:45a Main Office Lisa Mtz M.D. 06186 461.0 Office Visit 06/27/2010 2:00p Main Office Jaquelin Jha PA-C 22827 789.9 575.0 Office Visit 01/12/2010 2:30p Main Office JUJU Montoya-C 53237 784.0 786.59 786.50 300.00 Office Visit 12/15/2009 2:45p Main Office Dorian Rios.N.P.CDenise 75732 486 Office Visit 09/27/2009 3:45p Main Office HAYLEE MontoyaPDeborahC 11472 466.0 Office Visit 08/03/2009 4:45p Main Office Lisa Mtz M.D. 53129 466.0 Office Visit 12/31/2008 12:15p Main Office Lisa Mtz M.D. 83532 780.79 465.9 Office Visit 10/21/2008 2:45p Main Office Dorian Rios.N.P.CDenise 88230 625.3 Office Visit 08/31/2008 9:15a Main Office HAYLEE MontoyaP-C 24524 466.0 Office Visit 08/28/2008 2:00p Main Office Ritesh Salamanca Justo [facility] 30136 466.0 Office Visit 08/25/2008 3:15p Main Office Martynorman Kemp [facility]-C 94298 466.0 Office Visit 06/01/2008 10:00a Main Office Cherelle Cheung F.N.P.C. 99470 724.5 Office Visit 05/28/2008 11:30a Main Office Cherelle Cheung F.N.P.C. 20034 724.5 Office Visit 03/03/2008 1:45p Main Office Martygaviotarizwanpanda HorowitzDenise Kemp [facility]-C 43049 465.9 Office Visit 12/30/2007 10:15a Main Office Lisa Mtz M.D. 77667 780.52 625.3 309.0 Office Visit 09/11/2007 1:15p Main Office Lisa Mtz M.D. 55396 780.79 280.8 Office Visit 07/24/2007 1:15p Main Office Cherelle Cheung F.N.P.C. 66217 465.9 Office Visit 05/21/2007 3:30p Main Office Lisa Mtz M.D. 49130 V07.1 682.3 Office Visit 05/21/2007 3:00p Main Office Lisa Mtz M.D. 23727 V07.1 682.3 Office Visit 10/29/2006 9:45a Main Office Lisa Mtz M.D. 73198 280.8 729.5 477.9 780.79 Office Visit 09/18/2006 2:30p Main Office Lisa Mtz M.D. 26722 780.79 995.3 Office Visit 05/09/2006 11:00a Main Office Lisa Mtz M.D. 05442 V20.2 Office Visit 02/22/2006 10:00a Main Office Cherelle Cheung F.N.P.C. 57931 079.99 372.30 786.2 Office Visit 08/09/2005 3:15p Main Office Wilfredo Ambrose M.D. 25046 465.9 Office Visit 07/17/2005 1:45p Main Office Lisa Mtz M.D. 09322 477.9 706.1 Office Visit 04/18/2005 3:30p Main Office Lisa Mtz M.D. 58155 V20.2 783.1 309.9 Office Visit 01/17/2005 4:00p Main Office Lisa Mtz M.D. 60936 465.9 Office Visit 07/22/2004 4:30p Main Office France Menendez M.D. 00076 477.9 Office Visit 09/01/2003 10:15a Main Office Vnaessa Rios 77970 V20.2 Plan of Care 07/15/2018 - Lisa Mtz M.D.I26.99 Other pulmonary embolism without acute cor pulmonaleComments:PT IS IMPROVING, GRADUALLY GETTING SOME STAMINA BACK BUT STILL GETS TIRED EASILY. TO KEEP WORKING ONWALKING (AVOIDING HILLS) SMALL AMOUNTS 15-20 MINUTES A FEW TIMES PER DAY. 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 SHOULD CONTINUE TO GRADUALLY IMPROVE. IF WORSENING OR CONCERNS, TO NOTIFY. CONTINUE XARELTO, CHANGE FROM 15 MG BID AFTER 21 DAYS (AFTER 07/18) TO 20 MG PER DAY (ON 07/19/18). CAN RETURN TO WORK PART-TIME NEXT WEEK 4 HOURS PER DAY, THEN F/U IN 2 WEEKS. IF CONTINUES TO IMPROVE, WILL BE ABLE TO RETURN TO FULL-TIME.Follow up:. -- work noteRecommendations:-- CONTINUE ON THE XARELTO DIRECTED FOR A FULL 6 MONTHS- UNTIL 12/27/2017 -- FOLLOW-UP WITH THE BLOODWORK FOR DR. KUO 4 WEEKS AFTER YOU COMPLETE THE XARELTO 6 MONTH COURSE (AROUND ) AND THEN FOLLOW-UP WITH DR. KUO -- DECREASE THE XARELTO TO 20 MG ONCE PER DAY 07/19/18 -- STAY OUT OF WORK UNTIL 07/23/18- THEN RETURN PART-TIME FOR 2 UAENTM35.9 Anxiety disorder, unspecifiedNew Medication:Sertraline HCL 50 mgLorazepam 0.5 mgComments:ISSUES WITH ANXIETY PRIOR TO THE P.E.'S, SIGNIFICANTLY WORSE THE PAST FEW WEEKS SINCE P.E.'S. DISCUSSED TRY THE SERTRALINE AGAIN, TOLERATED IN THE PAST VS. BUSPIRONE. PT WOULD LIKE TO TAKE SERTRALINE-DISCUSSED MED, ACTION, SIDE EFFECTS, PROPER DOSING. DISCUSSED NEED TO GET ADJUSTED SLOWLY, NEED TO TAPER OFF AND NOT STOP ABRUPTLY. DISCUSSED SIDE EFFECTS OF INCREASED JITTERINESS, PERHAPS INCREASED ANXIETY INITIALLY, GI UPSET , POSSIBLE SUICIDAL THOUGHTS (HAS NO SI)- TO CALL SOMEONE OR 911 RIGHT AWAY IF OCCURS. PT AGREES. TO NOTIFY IF ANY PROBLEMS WITH MED OR QUESTIONS. SHE ASKS FOR REFILL ON XANAX- LAST RX #30 2 MONTHS AGO. DISCUSSED OK TO USE MED PRN, NOT TO USE REGULARLY BUT OK TO USE THIS FIRST WEEK IF NEEDED ADJUSTING TO THE SERTRALINE. DISCUSSED TRIAL LORAZEPAM LONGER-ACTING THAN XANAX.LORAZEPAM 0.5 MG 1/2-1 UP TO BID PRN ANXIETY #30.Follow up:F/U 2 WEEKS- 30 MINRecommendations: -- CONTINUE SEEING YOUR COUNSELOR -- IT IS OK TO TRY ACUPUNCTURE ONCE YOU ARE ON THE XARELTO 20 MG DOSE- YOU MAY BRUISE EASIER -- START THE SERTRALINE/ ZOLOFT 50 MG 1/2 TABLET ONCE PER DAY FOR 1 WEEK THEN 1 TABLET ONCE PER DAY -- NOTIFY IF PROBLEMS WITH THE MEDICATION- YOU MAY FEEL MORE ANXIOUS DURINGTHE FIRST WEEK OF BEING ON THE MEDICATION- THIS SHOULD IMPROVE BY THE SECOND WEEK - - YOU CAN TAKE THE LORAZEPAM/ ATIVAN 0.5 MG 1/2-1 UP TO TWICE PER DAY NEEDED FOR ANXIETY, ESPECIALLY DURING THE FIRST WEEK -- MAKE SURE TO EAT PROTEIN, VEGGIES AND FRUITS, EAT REGULARLY DURING THE DAY. COTTAGE CHEESE, EGGS, PEANUT BUTTER, NUTS, HUMMUS, YOGURT, ETC.E53.8 Deficiency of other specified B group vitaminsFollow up:.Recommendations:-- TAKE THE VITAMIN B12 SUBLINGUAL 1000 MCG EVERY DAYE55.9 Vitamin D deficiency, unspecifiedFollow up:.Recommendations:-- TAKE VITAMIN D3 1000 MCG QDAYN92.0 Excessive and frequent menstruation with regular cycleComments:MENSES HAVE STOPPED AFTER PROLONGED BLEEDING, LIKELY FROM BEING ON THE XARELTO AND FROM STOPPING BCPABRUPTLY. TO TAKE MVT WITH IRON. H/H OK 2 WEEKS AGO, FERRITIN OK AT 66 BUT IS ALSO ACUTE PHASE REACTANT.Follow up: .Recommendations:-- TAKE THE MULTIPLE VITAMIN WITH IRON
--- OUTSIDE RECORDS SUMMARY | 2018-07-23 19:34 | XMS REPORT ---
:1990 External Reference #:[id number] Author Organization [facility] Address [address] [place] [address] Phone [phone] Care Team Providers Name Role Phone Lisa Mtz M.D. Primary Care Physician Unavailable Payers Type Date Identification Payment Subscriber Numbers Provider Health Maintenance Expires: Policy Number: [facility] (O) 11/18/2012 [id number] [facility] ) Group Name: [address] PayID: [id number] [place] [address] Medigap Part B Expires: 11/18/2012 Policy Number: Tom Ramos [id number] [address] [place] [address] Medigap Part B Effective: Policy Number: [facility] 07/03/2012 [id number] [facility] Expires: 11/18/2014 Group Number: [id number] Paula Group Name: [place] [address] Commercial Effective: Policy Number: Jorge Luis [facility] Jerzy C 11/19/2014 [id number] Medicaid [place] Expires: 04/17/2015 PayID: [id number] [address] [place] [address] Medigap Part B Effective: Policy Number: Aileen Hair 04/19/2015 [id number] [facility] Group Name: [employer] 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 Blegen, of water M.D. every day for constipation , hold for diarrhea Docusate Sodium 07/04 Active Capsules 100mg 60cap 1-2 by mouth K59.00 s twice a day P. Blegen, for stool M.D. softener Loratadine 09/14 Active Tablets 10mg (generic for claritin)- 1 P. Blegen, by mouth M.D. every day as needed allergies Multi Complete 06/14 Active Capsules occasionally Shawgabrielle RDenise /2014 HAYLEE KempP-C Alprazolam 11/28 Active Tablets 0.25mg 30tab 2-1 by Jeff s mouth every Mark night at [facility] ATMOSPHERIC PHYSICIST-C bedtime as needed anxiety Oxycodone HCL Active Tablets 5mg Iav, MD Leatha Cyclobenzaprine Active Tablets 10mg Iva, HCL MD [...] Every 6Hours as Needed For Fever/Mild Pain Propranolol HCL 05/30 Hx Tablets 10mg 30tab 1 tab by F40.241 s mouth three Gutierrez, - times a day 07/04 as needed for acrophobia Vitamin B-12 03/25 Hx Tablets 1000mcg 1 by mouth Lisa every day- Miladis Mtz, - sublingual- M.DDenise 05/30 for vitamin b12 deficiency Azithromycin 10/25 Hx Tablets 250mg 6tabs take 2 J01.90 tablets by Gutierrez, - mouth one 05/30 time take one daily for 4 days. Wait to fill until patient calls. Ergocalciferol 10/08 Hx Capsules 15007Onos 12cap take 1 s capsule by Miladis Mtz, - mouth every M.D. 05/30 week directed for vitamin d deficiency as directed Flexeril 07/20 Hx Tablets 5mg 30tab 1-2 tabs M53.3 s daily for Gutierrez, - muscle spasm 09/14 Metamucil Smooth 03/30 Hx Packet 28% 90uni 1 packet by K58.0 Ritesh Harrison ts mouth daily Storm, Singles - ATMOSPHERIC PHYSICIST-C 09/14 Cyclobenzaprine 05/06 Hx Tablets 10mg 15tab (flexeril)- 724.5 Lisa HCL /2014 s 1 by mouth Miladis Mtz, - twice a day M.D. 06/14 as needed muscle spasm Robitussin ac 04/10 Hx 300ml 1-2 teaspoon 465.8 Kayla /2013 by mouth Melina Gentile, - q4-6hr as M.D. 04/20 needed cough/pain Hydroxyzine HCL 04/10 Hx Tablets 10mg 30tab 1 or 2 po 465.8 Kayla s tid prn for Melina Gentile, - anxiety M.D. 06/14 Fluocinonide 11/13 Hx Ointment 0.05% 30gm apply 691.8 Shawnti R. sparignly to Storm, - affeceted ATMOSPHERIC PHYSICIST-C 04/10 area bid prn /2013 Sertraline HCL 10/09 Hx Tablets 50mg 135ta 1 and 1/2 po 296.35 bs qd P. Blegen, - M.D. 11/13 Hydroxyzine HCL 10/09 Hx Tablets 10mg 30tab 1 or 2 po Shawnti R. s tid prn for Storm, - anxiety ATMOSPHERIC PHYSICIST-C 11/28 Azithromycin 07/27 Hx Tablets 250mg 6tabs 2 po today 461.0 Rosalina then 1 po Alysha, - daily for 4 M.D., R.D. Sertraline HCL 06/22 Hx Tablets 25mg 90tab one po 296.35 Shawnti R. s daily for Storm, - anxiety and ATMOSPHERIC PHYSICIST-C 10/09 depression Fluoxetine HCL 01/12 Hx Tablets 10mg 1 po qd 300.00 Shawnti R. Storm, - ATMOSPHERIC PHYSICIST-C 07/27 Azithromycin 12/15 Hx Tablets 250mg 6tabs 2 tabs po on 486 day one then P. Blegen, - 1 tab qd for M.D. 07/27 Azithromycin 09/27 Hx Tablets 250mg 6tabs 2 po today 466.0 Shawnti R. then 1 po Justo, - daily for 4 ATMOSPHERIC PHYSICIST-C Robitussin ac 09/27 Hx 150ml 1-2 tsp po 466.0 Shawnti R. q4-6hr prn Storm, - cough/pain ATMOSPHERIC PHYSICIST-C 07/27 Proventil HFA 08/03 Hx Aerosol 108mcg/Ac [...] 220mcg 1unit Inhale One 466.0 Shawnti R. Twistihale s Dose QHS For Storm, - Asthma, ATMOSPHERIC PHYSICIST-C 09/11 Rinse Mouth After Use No Work 08/25 Hx please 466.0 Shawnti R. excuse due Storm, - to illness, ATMOSPHERIC PHYSICIST-C 07/27 once feeling better Albuterol 08/25 Hx Aerosol 90mcg/Act 1Inha 2 puffs 466.0 Martywnti R. lr every 4-6 Storm, - hours if ATMOSPHERIC PHYSICIST-C 11/27 needed for cough, wheeze or shortness of breath Return To Work 06/01 Hx full duty, 724.5 Cherelle A. no Skye, - restrictions F.N.P.C. 07/27 . hx of neck /2010 injury Zyrtec-D 03/03 Hx Tablets 5-120mg 60tab 1 po bid for 465.9 Shawnti R. ER 12HR s allergies Storm, - ATMOSPHERIC PHYSICIST-C 11/27 Robitussin ac 03/03 Hx 150ml 1-2 tsp po 465.9 Martywnti R. q4-6hr prn Storm, - cough/pain ATMOSPHERIC PHYSICIST-C 11/27 No School 03/03 Hx please 465.9 Shawnti R. excuse due Storm, - to illness, ATMOSPHERIC PHYSICIST-C 07/27 when feeling better Ortho Tri-Cyclen 12/30 Hx Tablets 1tabs Use as Lisa Davis Deborah Bueno M.D. 11/27 Zithromax 07/24 Hx Tablets 500mg 3tabs 1 qd X 3 465.9 Cherelle A. Tri-Steve /2006 Days March Skye, - Repeat After F.N.P.C. 08/03 10 Days SX Persist Zithromax Z-Steve 05/21 Hx Tablets 250mg 6tabs two po qd today and P. Blegen, - then one po M.D. 07/27 qd for days Phenergan 12/11 Hx Tablets 25mg 6tabs 1 per rectum q 6 hours P. Blegen, - prn nausea/ M.D. 07/27 Excuse From 10/29 Hx this is to Lisa confirm PT P. Blegen, - seen at our M.D. 07/27 office for acute visit Gentamycin Ophth 02/22 Hx Solution 3mg/ml 5ml 2 Drops qid 372.30 Cherelle A. /2005 Until SX Skye, - Resolved For F.N.P.C. 11/27 Benzaclin Gel [...] - 07/19 Sudafed Hx Tablets 30mg prn Unknown /0000 - 11/27 Loryna Hx Tablets 3-0.02mg Unknown /0000 - 07/03 Medications Administered in Office Medication Date Status Form Strength Qnty SIG Indications Ordering Provider Vitamin B-12 Administered Injection Lab and Injection-To 009 Office 1000mcg Services Vitamin B-12 Administered Injection Lab and Injection-To 009 Office 1000mcg Services Vitamin B-12 Administered Injection Lisa P. [...] CPT Code Status Date Vaccine Lot # 55586 Given 10/02/2017 Influenza Virus Vaccine, Quadrivalent, 3 Yr > Quad, Preserv Free 85750 Given 08/17/2016 Influenza Virus Vaccine, Quadrivalent, 3 Yr > Quad, Preserv Free 26249 Given 05/19/2014 Tdap (Adacel) [id number] 15352 Given 11/28/2012 Menactra (meningococcal conjugate vaccine) [id number] 62273 Given 09/13/2011 Influenza Vaccine-Preservative Free 3 Yrs And [id number] Above 48950 Given 04/09/2007 Meningococcal Polysaccharide Vaccine [id number] 76275 Given 12/04/2006 Influenza Virus Vaccine, 3 Yrs And Above 56112 77484 Given 04/18/2005 DT (Adult) 61343 Given 01/14/2002 Hep B Vaccine, Ped/Adol Dose 3 Dose (Engerix or Recombivax) 52270 Given 09/20/2001 Hep B Vaccine, Ped/Adol Dose 3 Dose VFC (Engerix or Recombivax) 35627 Given 07/17/2001 Hep B Vaccine, Ped/Adol Dose 3 Dose VFC (Engerix or Recombivax) 83466 Given 12/22/1993 DPT 30783 Given 12/22/1993 MMR (Measles,Mumps,Rubella) 72967 Given 12/22/1993 Opv (Poliovirus,Oral) 34508 Given 08/16/1992 DPT 53820 Given 08/16/1992 Hib (Hemophilus Influenza B) (Acthib) 21682 Given 07/28/1992 Opv (Poliovirus,Oral) 57508 Given 07/28/1992 MMR (Measles,Mumps,Rubella) 22121 Given 09/26/1990 Hib (Hemophilus Influenza B) (Acthib) 50558 Given 02/22/1990 DPT 29582 Given 1989 Opv (Poliovirus,Oral) 79579 Given 1989 DPT 64630 Given 1989 Opv (Poliovirus,Oral) 87303 Given 1989 DPT Vital Signs Date Vital Result Comment 07/04/2018 Weight 212.00 lb Weight in kg's [...] Mass Index) 37.2 kg/m2 Last Menstrual Period 7890643 07/20/2016 Weight 243.00 lb Weight in kg's [...] Mass Index) 33.0 kg/m2 Last Menstrual Period 7074190 05/06/2015 Weight 212.00 lb Weight in kg's [...] Heart Rate 88 /min Last Menstrual Period 4591474 08/31/2008 Weight 213.00 lb Weight in kg's [...] Poc Ketone, Urine Trace Negative Poc Specific [place], Urine 1.025 1.010-1.030 Poc Blood, Urine Negative [...] 5 5-6 Urine Blood neg Neg Specific [place] 1.015 1.01-1.02 Urine Ketones neg Neg Urine [...] Cells % 0.8 Urine DIP 06/14/2015 Specific [place] 1.010 1.01-1.02 Urine pH 7 High 5-6 Leukocytes NEG Neg Urine Nitrites NEG Neg Total Protein, Urine NEG Neg Urine Glucose NORM Norm Urine Ketones NEG Neg Urobilinogen NORM Norm Urine Bilirubin NEG Neg Urine Blood NEG Neg Laboratory test finding 06/14/2015 Cytology SEE RESULT BELOW 31 Urine DIP 05/06/2015 Specific [place] 1.015 1.01-1.02 Urine pH 5 5-6 Leukocytes [...] Urine Blood 250+ MENSES High Neg Specific [place] NA Low 1.01-1.02 CBC Auto Diff 04/10/2011 [...] Color YELLOW Yellow Appearance-Urine TURBID Clear Specific [place]-Ur 1.029 1.010-1.030 Esterase-Urine 2+ Negative Nitrite NEGATIVE Negative [id number]-Mh-MHH NEGATIVE Negative Protein-Urine TRACE Negative PH-Urine 7.5 [...] 09/11/2007 TSH (Thyrotropin) 1.530 uIU/ml 0.350- 5.500 [place] Test NEGATIVE CBC With Electronic Diff 09/20/2006 [...] Vitamin B12 368 pg/mL 180-914 Monospot 09/20/2006 [place] [facility] [place] Monospot NEGATIVE Negative Laboratory [...] [address]: Edith Gimenez MD Acct: [id number] Unit: [id number] AGE: 27 Location: [facility] Re02/06/18 SEX: F Status: REG REF SPEC: [id number] JASMIN: 02/06/18- SUBM DR: Edith Gimenez MD REQ: [id number] RECD: 02/06/180814 STATUS: JEAN HERNANDEZ DR: Lisa Mtz MD _ ORDERED: LEVEL 4 COMMENTS: [id number] FINAL DIAGNOSIS Skin, right proximal upper arm, [...] 0929 END OF REPORT DEPARTMENT OF PATHOLOGY, [address] [id number] Tip Yao M.D. Director [facility] # [id number] 6 Because ethnic data is not always [...] developed and its performance characteristics determined by [facility] in a manner consistent with CLIA requirements. This test has not been cleared or approved by the U.S. Food and Drug Administration. 8 ADDITIONAL INFORMATION This test was developed and its performance characteristics determined by [facility] in a manner consistent with CLIA requirements. This test has not been cleared or approved by the U.S. Food and Drug Administration. 9 ADDITIONAL INFORMATION This test was developed and its performance characteristics determined by [facility] in a manner consistent with CLIA requirements. This test has not been cleared or approved by the U.S. Food and Drug Administration. Test Performed by: [facility] - [address] [address] 10 No bands detected 11 No bands [...] screening test (e.g., EIA). Test Performed by: [address] [address] 13 [id number] Normal Range 180 to 914 Indeterminate Range 145 to 180 Deficient Range <145 15 Medical Imaging Specialist: [id number] Normal Range 180 to 914 Indeterminate Range 145 to 180 Deficient Range <145 17 [id number] 18 SEE RESULT BELOW Name: JERZY RAMOS : [address]: Lisa Mtz MD Acct: [id number] Unit: [id number] AGE: 26 Location: [facility] Re09/14/16 SEX: F Status: REG REF SPEC: [id number] JASMIN: 09/14/16-[address] [facility] [address]: Lisa Mtz MD REQ: [id number] RECD: 09/14/16 STATUS: SOUT _ ORDERED: IMAGE ANALYSIS COMMENTS: [id number] FINAL DIAGNOSIS Negative for Intraepithelial lesion or [...] was evaluated with the assistance of the GoProp Test Imaging System. Due to cytologic findings at the thermostatic controls supervisor microscope, comprehensive manual rescreening by a [place] may be required. The Pap Smear is [...] performed at Main Lab DEPARTMENT OF PATHOLOGY, [address] [place] [address] iTp Yao M.D. Director [facility] # [id number] Desirable <150 Borderline high 150-199 High 200-499 Very High >500 20 Desirable <200 Borderline high 200-239 High >239 21 Low <40 Desirable: 40-60 High: >60 22 Desirable: <100 mg/dL Near Optimal: 100-129 mg/dL Borderline High: 130-159 mg/dL High: 160-189 mg/dL Very High: >189 mg/dL 23 [id number] 25 Normal Range 180 to 914 Indeterminate Range 145 to 180 Deficient Range <145 26 [id number] 27 [id number] 28 It is recognized that currently available [...] [address]: Ritesh Kemp NP Acct: [id number] Unit: [id number] AGE: 24 Location: [facility] Re06/14/15 SEX: F Status: REG REF SPEC: [id number] JASMIN: 06/14/[address]: Ritesh Kemp NP REQ: [id number] RECD: 06/14/15 STATUS: SOUT _ ORDERED: IMAGE [...] No results available. Signed (signature on file) Jaredelenaabbey Whitt 06/15/15 1434 This Pap test was evaluated with the assistance of the FlipGive Test Imaging System. Due to cytologic findings at the thermostatic controls supervisor microscope, comprehensive manual rescreening by a [place] may be required. The Pap Smear is [...] performed at Main Lab DEPARTMENT OF PATHOLOGY, [address] [place] [address] Tip Yao M.D. Director [facility] # [id number] RUN DATE: 02/24/15 LAB LIVE PAGE 1 RUN TIME: [address] [place] [address] Specimen Inquiry Name: JERZY RAMOS : [address]: Naldo Cartwright MD Acct: [id number] Unit: [id number] AGE: 24 Location: [facility] Re02/22/15 SEX: F Status: DEP ER SPEC: [id number] JASMIN: 02/22/15-[address] [facility] [address]: Naldo Cartwright MD REQ: [id number] RECD: 02/22/15-151 STATUS: COMP OTHR DR: Lisa Mtz MD _ SOURCE: THROAT SPDESC: ORDERED: Throat Beta Str Procedure Result Verified Site Throat Beta Strep Culture Final 02/24/15- 803 ML Negative For Group A Beta Streptococcus * ML - MAIN LAB ([facility]) . END OF REPORT * ML=Testing performed at Main Lab DEPARTMENT OF PATHOLOGY, [facility] [employer] [place] [address] Tip Yao M.D. Director [facility] # [id number] RUN DATE: 09/14/14 LAB LIVE PAGE 1 RUN TIME: 5487 [facility] [employer] [place], [place] [address] Specimen Inquiry Name: JERZY RAMOS : [address]: Christy Spivey MD Acct: [id number] Unit: [id number] AGE: 24 Location: [facility] Re09/12/14 SEX: F Status: DEP ER SPEC: [id number] JASMIN: 09/13/[address] [facility] [address]: Christy Spivey MD REQ: [id number] RECD: 09/13/14 STATUS: RES OT DR: Lisa Mtz MD _ SOURCE: STOOL [...] performed at Main Lab DEPARTMENT OF PATHOLOGY, [address] [place] [address] Tip Yao M.D. Director [facility] # [id number] RUN DATE: 09/14/14 LAB LIVE PAGE 2 RUN TIME: [address] [place] [address] Specimen Inquiry Patient: JERZY RAMOS [id number] (Continued) Specimen: [id number] Collected: 09/13/14 Received: 09/13/14 (Continued) Procedure Result Verified Site C. difficile Amplified DNA Final (continued) 09/13/14 1433 up to 50% and higher have been reported in infants and rates up to 32% in cystic fibrosis patients. O P: Giardia/Cryptospor Screen PENDING END OF REPORT * ML=Testing performed at Main Lab DEPARTMENT OF PATHOLOGY, [facility] [employer] [place], [place] [address] Tip Yao M.D. Director CLIA # [id number] RUN DATE: 09/14/14 LAB LIVE PAGE 1 RUN TIME: 1413 [facility] [employer] [place], [place] [address] Specimen Inquiry Name: JERZY RAMOS : [address]: Christy Spivey MD Acct: [id number] Unit: [id number] AGE: 24 Location: [facility] Re09/12/14 SEX: F Status: DEP ER SPEC: [id number] JASMIN: 09/13/14 ENMANUEL SHORE: Christy Spivey MD REQ: [id number] RECD: 09/13/14 STATUS: RES OTHR DR: Lisa Mtz MD _ SOURCE: STOOL SPDC: ORDERED: E.coli O157:H7, Stool Culture, C. diff [...] performed at Main Lab DEPARTMENT OF PATHOLOGY, [address] [place] [address] Tip Yao M.D. Director [facility] # [id number] RUN DATE: 09/14/14 LAB LIVE PAGE 2 RUN TIME: [address] [place] [address] Specimen Inquiry Patient: JERZY RAMOS [id number] (Continued) Specimen: [id number] Collected: 09/13/14 Received: 09/13/14 (Continued) Procedure Result Verified Site C. difficile Amplified DNA Final (continued) 09/13/14- 143 up to 50% and higher have been [...] is requested. Contact the Microbiology Department at [phone]. TEST LIMITATIONS: As with all diagnostic procedures, [...] performed at Main Lab DEPARTMENT OF PATHOLOGY, [facility] [employer] [place], [place] [address] Tip Yao M.D. Director [facility] # [id number] RUN DATE: 09/15/14 LAB LIVE PAGE 1 RUN TIME: 1030 [facility] [employer] [place], [place] [address] Specimen Inquiry Name: JERZY RAMOS : [address]: Christy Spivey MD Acct: [id number] Unit: [id number] AGE: 24 Location: [facility] Re09/12/14 SEX: F Status: DEP ER SPEC: [id number] JASMIN: 09/13/[address] [facility] [address]: Christy Spivey MD REQ: [id number] RECD: 09/13/14 STATUS: KEV HERNANDEZ DR: Lisa [...] performed at Main Lab DEPARTMENT OF PATHOLOGY, [facility] [employer] [place], [place] [address] Tip Yao M.D. Director [facility] # [id number] RUN DATE: 09/15/14 LAB LIVE PAGE 2 RUN TIME: 1030 [facility] [employer] [place], [place] [address] Specimen Inquiry Patient: JERZY RAMOS [id number] (Continued) Specimen: [id number] Collected: 09/13/14 Received: 09/13/14 (Continued) Procedure Result [...] is requested. Contact the Microbiology Department at [phone]. TEST LIMITATIONS: As with all diagnostic procedures, the results obtained should be used in conjunction with other clinical information available the physician, including confirmation by another method. Negative results can occur in samples CONTINUED ON NEXT PAGE * ML=Testing performed at Main Lab DEPARTMENT OF PATHOLOGY, [address] [place] [address] Tip Yao M.D. Director [facility] # [id number] RUN DATE: 09/15/14 LAB LIVE PAGE 3 RUN TIME: 1030 [address], [place] [address] Specimen Inquiry Patient: JERZY RAMOS [id number] (Continued) Specimen: [id number] Collected: 09/13/14 Received: 09/13/14 (Continued) Procedure Result Verified Site O P: Giardia/Cryptospor Screen Final (continued) 09/14/14 5452 containing antigen below lower limits of detection [...] performed at Main Lab DEPARTMENT OF PATHOLOGY, [address] [place] [address] Tip Yao M.D. Director [facility] # [id number] 36 Anion gap measurement may be of limited value in the presence of any alkalosis, especially in a combined acid base disorder. . 37 A metabolite of Naproxen, O-desmethylnaproxen, has been shown to interfere with the [place] method for measuring total bilirubin. Samples from [...] to be a threshold for optimal health. [facility]. J Nutr. 2004;135(2):317-22. 41 Recent studies consider the lower limit of 32.0 ng/mL to be a threshold for optimal health. [facility]. J Nutr. 2004;135(2):317-22. 42 Greater than or equal to 211 is normal. . 43 Recent studies consider the lower limit of 32.0 ng/mL to be a threshold for optimal health. [facility]. J Nutr. 2004;135(2):317-22. 44 Greater than or [...] kidneys. 46 Specimen from 09-11-07 add to [id number] < or=0.90 Negative 0.91 - 1.09 [...] Procedures Date CPT Code Description Status 01/12/2010 36315 EKG, at Least 12 Leads w/Interpretation and Report Completed 06/22/2009 71029 Therapeutic,Prophylactic,Or Diagnostic Inj,SC/Im Completed Specify Drug 04/23/2009 53548 Therapeutic,Prophylactic,Or Diagnostic Inj,SC/Im Completed Specify Drug 03/04/2009 57840 Therapeutic,Prophylactic,Or Diagnostic Inj,SC/Im Completed Specify Drug 01/28/2009 50665 Therapeutic,Prophylactic,Or Diagnostic Inj,SC/Im Completed Specify Drug 01/21/2009 85143 Therapeutic,Prophylactic,Or Diagnostic Inj,SC/Im Completed Specify Drug 01/14/2009 03855 Therapeutic,Prophylactic,Or Diagnostic Inj,SC/Im Completed Specify Drug 01/07/2009 69574 Therapeutic,Prophylactic,Or Diagnostic Inj,SC/Im Completed Specify Drug 08/25/2008 30056 Nebulizer Treatment Completed 09/06/2007 70477 Multiple Allergy Shot Administrat Completed 2007 54155 Multiple Allergy Shot Administrat Completed 07/26/2007 74572 Multiple Allergy Shot Administrat Completed 07/12/2007 58812 Multiple Allergy Shot Administrat Completed 06/20/2007 85583 Multiple Allergy Shot Administrat Completed 06/20/2007 59132 Allergy Shot Administration Completed 06/06/2007 83227 Multiple Allergy Shot Administrat Completed 05/28/2007 63124 Multiple Allergy Shot Administrat Completed 05/21/2007 67364 Multiple Allergy Shot Administrat Completed 05/14/2007 94618 Multiple Allergy Shot Administrat Completed 02/26/2007 71499 Multiple Allergy Shot Administrat Completed 02/26/2007 34799 Allergy Shot Administration Completed 01/17/2007 24665 Multiple Allergy Shot Administrat Completed 01/01/2007 19533 Multiple Allergy Shot Administrat Completed 12/18/2006 95796 Multiple Allergy Shot Administrat Completed 12/04/2006 85253 Multiple Allergy Shot Administrat Completed 12/04/2006 11726 Allergy Shot Administration Completed 10/22/2006 22442 Multiple Allergy Shot Administrat Completed 10/15/2006 28223 Multiple Allergy Shot Administrat Completed 10/02/2006 99427 Multiple Allergy Shot Administrat Completed 09/10/2006 13823 Multiple Allergy Shot Administrat Completed 09/03/2006 52030 Multiple Allergy Shot Administrat Completed 09/03/2006 33154 Allergy Shot Administration Completed 08/27/2006 79210 Multiple Allergy Shot Administrat Completed 08/13/2006 65523 Multiple Allergy Shot Administrat Completed 08/13/2006 80202 Allergy Shot Administration Completed 08/06/2006 13565 Multiple Allergy Shot Administrat Completed 07/30/2006 62532 Multiple Allergy Shot Administrat Completed 07/30/2006 26306 Allergy Shot Administration Completed 07/24/2006 05996 Multiple Allergy Shot Administrat Completed 07/16/2006 33810 Multiple Allergy Shot Administrat Completed 07/09/2006 26319 Multiple Allergy Shot Administrat Completed 07/02/2006 97409 Multiple Allergy Shot Administrat Completed 06/25/2006 05005 Multiple Allergy Shot Administrat Completed Encounters Type Date Location Provider CPT E/M Dx Office Visit 05/30/2018 11:[place] [address] F40.241 Office Visit 05/07/2018 9:00a [facility], [address] F41.9 ATMOSPHERIC PHYSICIST-C T38.4x5A Office Visit 06/12/2017 11:30a Main Office France Moreno, ATMOSPHERIC PHYSICIST-C 19312 R53.83 E55.9 E53.9 Z82.49 Office Visit 10/25/2016 10:45a [place] [address] J01.90 Office Visit 09/14/2016 10:15a Main Office Lisa Mtz M.D. 49202 Z00.01 R53.83 Z13.220 Z11.3 L20.9 E61.1 Office Visit 07/20/2016 8:45a [place] [address] M53.3 Office Visit 06/29/2016 3:30p Main Office Ritesh Kemp ATMOSPHERIC PHYSICIST-C 47908 K11.9 Office Visit 03/30/2016 11:15a Main Office Ritesh Kemp ATMOSPHERIC PHYSICIST-C 99004 R10.9 K58.0 Office Visit 06/14/2015 8:45a Main Office Ritesh Kemp, [facility] 66631 V70.0 Office Visit 05/06/2015 9:30a Main Office Lisa Mtz M.D. 41986 724.5 Office Visit 05/19/2014 2:15p Main Office Ritesh Kemp, ATMOSPHERIC PHYSICIST-C 49775 892.0 V06.1 Office Visit 04/10/2014 10:45a Main Office Kayla Gentile M.D. 63814 465.8 Office Visit 11/13/2013 10:30a Main Office Samrizwanpanda Kemp, ATMOSPHERIC PHYSICIST-C 98578 691.8 300.00 Office Visit 11/28/2012 11:45a Main Office Lisa Mtz M.D. 41586 300.00 V03.89 Office Visit 10/31/2011 8:00a Main Office France Moreno [facility]-C 04286 V70.0 Office Visit 10/09/2011 10:30a Main Office Ritesh Kemp, ATMOSPHERIC PHYSICIST-C 96640 296.35 728.85 Office Visit 07/27/2011 11:00a Main Office Rosalina Encarnacion M.D., RMarkie 69796 461.0 Office Visit 07/07/2011 3:15p Main Office Martynorman Kemp ATMOSPHERIC PHYSICIST-C 78579 296.35 Office Visit 06/22/2011 9:45a Main Office Ritesh Kemp [facility]-C 44609 296.35 Office Visit 07/09/2010 11:45a Main Office Lisa Mtz M.D. 54951 461.0 Office Visit 06/27/2010 2:00p Main Office Jaquelin Jha PA-C 35106 789.9 575.0 Office Visit 01/12/2010 2:30p Main Office Ritseh Carlos ManuelDenise Kepm ATMOSPHERIC PHYSICIST-C 21370 784.0 786.59 786.50 300.00 Office Visit 12/15/2009 2:45p Main Office Vanessa Rios 23679 486 Office Visit 09/27/2009 3:45p Main Office Ritesh Carlos ManuelDenise Kemp, ATMOSPHERIC PHYSICIST-C 32507 466.0 Office Visit 08/03/2009 4:45p Main Office Lisa Mtz M.D. 38586 466.0 Office Visit 12/31/2008 12:15p Main Office Lisa Mtz M.D. 45338 780.79 465.9 Office Visit 10/21/2008 2:45p Main Office Cherelle Cheung F.N.P.C. 57084 625.3 Office Visit 08/31/2008 9:15a Main Office Martygaviotarizwanpanda Kemp, ATMOSPHERIC PHYSICIST-C 02225 466.0 Office Visit 08/28/2008 2:00p Main Office Aniyapanda Kemp, ATMOSPHERIC PHYSICIST-C 53621 466.0 Office Visit 08/25/2008 3:15p Main Office Martygaviotarizwanpanda Kemp, ATMOSPHERIC PHYSICIST-C 83764 466.0 Office Visit 06/01/2008 10:00a Main Office Cherelle Cheung F.N.P.C. 92074 724.5 Office Visit 05/28/2008 11:30a Main Office Cherelle Cheung F.N.P.C. 51739 724.5 Office Visit 03/03/2008 1:45p Main Office Ritesh Carlos ManuelDenise Justo, ATMOSPHERIC PHYSICIST-C 89839 465.9 Office Visit 12/30/2007 10:15a Main Office Lisa Mtz M.D. 41239 780.52 625.3 309.0 Office Visit 09/11/2007 1:15p Main Office Lisa Mtz M.D. 98559 780.79 280.8 Office Visit 07/24/2007 1:15p Main Office Cherelle Cheung F.N.P.C. 76282 465.9 Office Visit 05/21/2007 3:00p Main Office Lisa Mtz M.D. 10213 V07.1 682.3 Office Visit 05/21/2007 3:30p Main Office Lisa Mtz M.D. 79748 V07.1 682.3 Office Visit 10/29/2006 9:45a Main Office Lisa Mtz M.D. 76994 280.8 729.5 477.9 780.79 Office Visit 09/18/2006 2:30p Main Office Lisa Mtz M.D. 47313 780.79 995.3 Office Visit 05/09/2006 11:00a Main Office Lisa Mtz M.D. 20909 V20.2 Office Visit 02/22/2006 10:00a Main Office Cherelle Cheung F.N.P.C. 42829 079.99 372.30 786.2 Office Visit 08/09/2005 3:15p Main Office Wilfredo Ambrose M.D. 27607 465.9 Office Visit 07/17/2005 1:45p Main Office Lisa Mtz M.D. 41115 477.9 706.1 Office Visit 04/18/2005 3:30p Main Office Lisa Mtz M.D. 65264 V20.2 783.1 309.9 Office Visit 01/17/2005 4:00p Main Office Lisa Mtz M.D. 66120 465.9 Office Visit 07/22/2004 4:30p Main Office France Menendez M.D. 00037 477.9 Office Visit 09/01/2003 10:15a Main Office Cherelle Cheung F.N.P.C. 12190 V20.2 Plan of Care Future Appointment(s):07/15/2018 3:15 pm - Lisa Mtz M.D. at Main Fblzfs8707/04/2018 - Lisa Mtz M.D.I26.99 Other pulmonary embolism without acute cor pulmonaleComments:LONG DISCUSSION ABOUT P.E. AND TREATMENT. I AM CONCERNED ABOUT HER EXTENSIVE B P.E.'S, DID NOT HAVE SIGN OF DVT. DID HAVE RISK FACTORS OF BCP AND LONG CAR TRIP TO [place] BUT STILL HAVE CONCERN ABOUT POSSIBLE UNDERLYING HYPERCOAGUABLE ISSUE. RECOMMENDED GET CONSULT WITH HEMATOLOGY. WILL NEED TO STAY ON THE XARELTO FOR AT LEAST 3-6 MONTHS BUT IF HYPERCOAGUABLE ISSUE MAY NEED LIFELONG ANTICOAGULATION.TO CONTINUE TO STAY OUT OF WORK AT LEAST ANOTHER WEEK- TO RECUPERATE, STILL ON CHRONIC PAIN MEDS, ALSO ANXIETY. TO [place] 07/15/18. DISCUSSED AVOID AGGRESSIVE EXERCISE, SHOULD GET UP AND MOVE REGULARLYAND NOT BE SEDENTARY, CAN GO FOR SHORT WALKS WITH HER DOG FOR A FEW MINUTES BUT NOT LONG OR BRISK WALKS AT THIS POINT. CONTINUE INCENTIVE SPIROMETER. B P.E. AND LEFT LOWER INFARCT. DISCUSSED PAIN CONTINUES TO IMPROVE, CAN CUT DOWN ON OXYCODONE FROM 5 MG Q6 HOURS TO Q 8-12 HOURS THEN 1/2- 1 QD NEEDED, CAN TAKE THE TYLENOL NEEDED. ALSO DISCUSSED CONSIDER REPEAT ECHO 1 MONTH. F/U WITH DR. CUEVAS SCHEDULED. SHOULD CONTINUE TO GRADUALLY IMPROVE. NOTIFY IF WORSENING, CONCERNS, WATCH FOR S/S PNEUMONIA AND NOTIFY IF FEVER, COUGH, INCREASED SOB, ETC.Follow up:. -- NEEDS RESET OF PORTAL - WORK NOTE - F/U Sunday07/15/18 3:15 ADDON - REFER TO HEMATOLOGY FOR CONSULT ON PULMONARY EMBOLISMRecommendations:-- CONTINUE ON THE XARELTO 15 MG TWICE PER DAY FOR THE FIRST 21 DAYS OF THE REGIMEN THEN 20 MG PER DAY -- WE WILL HAVE YOU GET A CONSULT WITH THE HEMAOLOGIST -- OUT OF WORK UNTIL I RECHECK YOU ON SUNDAY 07/15/41.9 Anxiety disorder, unspecifiedComments:DISCUSSED ANXIETY, HAS LONG HISTORY OF ANXIETY, HAD BEEN ON SERTRALINE IN THE PAST. HAD ISSUES WITHINCREASED ANXIETY PAST FEW MONTHS EVEN BEFORE THE P.E. PT NOT INTERESTED IN SSRI OR REGULAR MED (COULD ALSO CONSIDER BUSPIRONE). HAS ALPRAZOLAM ALREADY TO TAKE PRN, DOES NOT TAKE IT REGULARLY. SHE WILLF/U WITH COUNSELOR THROUGH [facility] WITH WORK, DISCUSSED OTHER COUNSELING OPTIONS WELL IF NEEDED. NOTIFY IF DIFFICULTY GETTING IN WITH COUNSELOR.Recommendations:-- SEE THE COUNSELOR THROUGH [facility] -- START MEDITATION DAILY- THE CALM SUE IS GREAT -- CONSIDER [facility] - [facility]- [phone] - Klarissa Tai- [phone] Deficiency of other specified B group vitaminsComments:ADDED ON VITAMIN B12, VITAMIN D AND FERRITIN LEVEL TO BLOOD IN LAB FROM ER VISIT LAST NIGHT.Follow up:.Recommendations:-- WE ARE RECHECKING YOUR VITAMIN B12 LEVEL -- I WILL LIKELY HAVE YOU RESUME THE VITAMIN B12 SUBLINGUAL 1000 MCG EVERY DAY TO EVERY OTHER DAYE55.9 Vitamin D deficiency, unspecifiedFollow up:.Recommendations:-- WE RECHECKED YOUR VITAMIN D LEVEL -- YOU WILL LIKELY NEED TO TAKE VITAMIN D3 1000 MCG QDAYN92.0 Excessive and frequent menstruation with regular cycleFollow up:.Recommendations:-- TAKE THE MULTIPLE VITAMIN WITH IRON -- WE ADDED ON THE IRON STORAGE [id number] Constipation, unspecifiedNew Medication:Miralax 3350 NFDocusate Sodium 100 mgComments:NO SIGN OF IMPACTION, GOOD RESULTS WITH DULCOLAX 2 DAYS AGO, SMALL BM THIS MORNING. DISCUSSED IMPORTANCE OF REGULAR BOWEL REGIMEN WITH MIRALAX AND ADD IN STOOL SOFTENER. IF NEEDED, ADD IN SENNA OR DULCOLAX PRN.Follow up: .Recommendations:-- CONTINUE THE MIRALAX WITH FULL GLASS OF WATER EVERY DAY -- ADD IN COLACE/ DOCUSATE 100 MG 1-2 TWICE PER DAY STOOL SOFTENER- TAKE THIS EVERY DAY -- EAT YOGURT/ PROBIOTIC REGULARLY -- YOU CAN USE SENNA LAXATIVE AT NIGHT EVERY NIGHT IF NEEDED FOR CONSTIPATION -- IF NO RESULTS WITH THIS REGIMEN , YOU CAN USE DULCOLAX/ BISACODYL 10 MG SUPPOSITORY UP TO THREE DAYS PER WEEK- USE TOMORROW MORNING OF NO RESULTS WITH BM
--- NOTE | 2018-07-23 21:02 | ED ---
HPI Chest Pain - HPI Summary HPI Summary: This patient is a 27 year old F with a PMHx of PE on 06/27/18 presenting to [facility] with a chief complaint of midsternal chest pain since 15:20 today. Patient has been on Xarelto since the PE. She describes the symptoms as similar to last time she had a PE. The patient rates the pain 3/10 in severity currently. Patient reports SOB which was aggravated by frequent walking and talking. 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 She is on Zoloft, Xarelto once a day, Lorazepam, muscle relaxers, and Tylenol. She is not on any medication for her blood pressure. Patient has a PMHx of anxiety which presents in her chest, but she believes this chest pain is more similar to her PE symptoms than anxiety symptoms. - History of Current Complaint Chief Complaint: EDShortnessOfBreath Time Seen by Provider: 07/23/18 20:58 Hx Obtained From: Patient Hx Last Menstrual Period: 08/26/17 Onset/Duration: Started Hours Ago - 15:30 today, Still Present Timing: Lasting Hours - Since 15:20 Initial Severity: Moderate Current Severity: Mild Pain Intensity: 3 Pain Scale Used: 0-10 Numeric Chest Pain Location: Mid Sternal Aggravating Factor(s): Movement - Walking, Other: - Talking Associated Signs and Symptoms: Positive: Chest Pain, Shortness of Breath - Additional Pertinent History Primary Care Physician: MUMTAZ - Allergy/Home Medications Allergies/Adverse Reactions: Allergies Allergy/AdvReac Type Severity Reaction Status Date / Time Penicillins Allergy Hives Verified 07/23/18 19:24 Sulfa (Sulfonamide Allergy Hives Verified 07/23/18 19:24 Antibiotics) PMH/Surg Hx/FS Hx/Imm Hx Endocrine/Hematology History: Reports: Hx Anticoagulant Therapy Denies: Hx Blood Transfusions, Hx Diabetes, Hx Sickle Cell Disease, Hx Thyroid Disease Cardiovascular History: Denies: Hx Angina, Hx Congenital Heart Disease, Hx Congestive Heart Failure, Hx Coronary Artery Disease, Hx Deep Vein Thrombosis, Hx Embolism, Hx Hypercholesterolemia, Hx Hypertension, Hx Peripheral Vascular Disease, Hx Rheumatic Fever, Hx Syncope, Hx Valvular Heart Disease Respiratory History: Denies: Hx Asthma, Hx Bronchopulmonary Dysplasia, Hx Chronic Bronchitis, Hx Chronic Obstructive Pulmonary Disease (COPD), Hx Cystic Fibrosis, Hx Lung Cancer , Hx Pleural Effusion, Hx Pneumonia GI History: Denies: Hx Crohn's Disease, Hx Diverticulosis, Hx Gall Bladder Disease, Hx Gastroesophageal Reflux Disease, Hx Gastrointestinal Bleed, Hx Hiatal Hernia, Hx Irritable Bowel, Hx Obstructive Bowel, Hx Ileostomy, Hx Pyloric Stenosis, Hx Ulcer History: Denies: Hx Benign Prostatic Hyperplasia, Hx Chronic Renal Failure, Hx Dialysis, Hx Kidney Infection, Hx Kidney Stones, Hx Renal Disease Musculoskeletal History: Comment Only: Other Musculoskeletal History - coccyx bone fx. Sensory History: Denies: Hx Cataracts, Hx Contacts or Glasses, Hx Eye Injury, Hx Eye Prosthesis, Hx Glaucoma, Hx Macular Degeneration, Hx Vision Problem, Hx Deafness , Hx Hearing Aid, Hx Hearing Problem, Other Sensory Impairments Opthamlomology History: Denies: Hx Cataracts, Hx Contacts or Glasses, Hx Eye Injury, Hx Eye Prosthesis, Hx Glaucoma, Hx Macular Degeneration, Hx Vision Problem, Other Sensory Impairments Neurological History: Denies: Hx Dementia, Hx Headaches, Hx Migraine, Hx Nerve Disease, Hx Seizures , Hx Transient Ischemic Attacks (TIA), Other Neuro Impairments/Disorders Psychiatric History: Reports: Hx Anxiety Denies: Hx Oppositional [place] Disorder, Hx Panic Disorder, Hx Schizophrenia, Hx of Violent Episodes Against Others - Surgical History Surgery Procedure, Year, and Place: tonsillectomy Infectious Disease History: No Infectious Disease History: Denies: Hx Clostridium Difficile, Hx Hepatitis, Hx Human Immunodeficiency Virus (HIV), Hx of Known/Suspected MRSA, Hx Shingles, Hx Tuberculosis, Hx Known/ Suspected VRE, Hx Known/Suspected VRSA, History Other Infectious Disease, Traveled Outside the US in Last 30 Days - Family History Known Family History: Negative: Renal Disease - Social History Occupation: Employed Full-time Alcohol Use: Rare Substance Use Type: Reports: None Smoking Status (MU): Former Smoker Type: Cigarettes Amount Used/How Often: 1/3 PPD Length of Time of Smoking/Using Tobacco: 10 years Have You Smoked in the Last Year: Yes Review of Systems Positive: Chest Pain - Midsternal, since 15:20 today Positive: Shortness Of Breath - Aggravated by frequent walking and talking All Other Systems Reviewed And Are Negative: Yes Physical Exam - Summary Physical Exam Summary: VITAL SIGNS: Reviewed. GENERAL: Patient is a well-developed and nourished FEMALE who is lying comfortable in the stretcher. Patient is not in any acute respiratory distress. HEAD AND FACE: No signs of trauma. No ecchymosis, hematomas or skull depressions. No sinus tenderness. EYES: PERRLA, EOMI x 2, No injected conjunctiva, no nystagmus. EARS: Hearing grossly intact. Ear canals and tympanic membranes are within normal limits. MOUTH: Oropharynx within normal limits. NECK: Supple, trachea is midline, no adenopathy, no JVD, no carotid bruit, no c- spine tenderness, neck with full ROM. CHEST: Symmetric, no tenderness at palpation LUNGS: Clear to auscultation bilaterally. No wheezing or crackles. CVS: Regular rate and rhythm, S1 and S2 present, no murmurs or gallops appreciated. ABDOMEN: Soft, non-tender. No signs of distention. No rebound no guarding, and no masses palpated. Bowel sounds are normal. EXTREMITIES: FROM in all major joints, no edema, no cyanosis or clubbing. NEURO: Alert and oriented x 3. No acute neurological deficits. Speech is normal and follows commands. SKIN: Dry and warm Triage Information Reviewed: Yes Vital Signs On Initial Exam: Initial Vitals Temp Pulse Resp BP Pulse Ox 99.3 F 80 16 147/88 99 07/23/18 19:18 07/23/18 19:18 07/23/18 19:18 07/23/18 19:18 07/23/18 19:18 Vital Signs Reviewed: Yes Diagnostics - Vital Signs Vital Signs Temp Pulse Resp BP Pulse Ox 07/23/18 19:18 99.3 F 80 16 147/88 99 - Laboratory Result Diagrams: 07/23/18 21:51 07/23/18 21:51 Lab Statement: Any lab studies that have been ordered have been reviewed, and results considered in the medical decision making process. - Radiology Chest X-Ray Radiology Interpretation Completed By: ED Physician - Read 22:00. No acute process. Pending official report. - EKG 19:24 Cardiac Rate: NL - 70 BPM EKG Rhythm: Sinus Rhythm ST Segment: Normal EKG Interpretation: Normal axis. Normal interval. No ischemic changes Chest Pain Course/Dx - Course Assessment/Plan: This patient is a 27 year old F with a PMHx of PE on 06/27/18 presenting to [facility] with a chief complaint of midsternal chest pain since 15:20 today. Patient has a PMHx of anxiety which presents in her chest, but she believes this chest pain is more similar to her PE symptoms than anxiety symptoms. Chest X-Ray revealed no acute process. EKG was normal. Patient will be discharged home with dx of anxiety. - Diagnoses Provider Diagnoses: Anxiety Discharge - Sign-Out/Discharge Documenting (check all that apply): Patient Departure - D/C - Discharge Plan Condition: Stable Disposition: HOME Patient Education Materials: Anxiety (ED) Referrals: Lisa Mtz MD [Primary Care Provider] - 2 Days Additional Instructions: FOLLOW UP WITH YOUR PRIMARY CARE PROVIDER WITHIN ONE WEEK FOR HIGH BLOOD PRESSURE NOTED TODAY. RETURN TO THE EMERGENCY DEPARTMENT FOR CHANGING OR WORSENING SYMPTOMS. FOLLOW UP WITH PCP IN 1-2 DAYS. - Attestation Statements Document Initiated by Scribe: Yes Documenting Scribe: Zachary Chen Provider For Whom Scribe is Documenting (Include Credential): Cristian Stewart MD Scribe Attestation: Zachary Gallardo, scribed for Cristian Stewart MD on 07/23/18 at 2232.
[2018-07-23 21:57] LABS: ABS Basophils 0.1 10^3/ul (0-0.2); ABS Eosinophils 0.2 10^3/ul (0-0.6); ABS Lymphocytes 3.4 10^3/ul (1.0-4.8); ABS Monocytes 0.5 10^3/ul (0-0.8); ABS Neutrophils 3.9 10^3/ul (1.5-7.7); ABS Nucleated RBC 0 10^3/ul; Eosinophil % 2.2 % (0-6); Hematocrit 39 % (35-47); Hemoglobin 13.3 g/dl (12.0-16.0); Lymphocyte % 42.5 % (25-47); Mean Corpuscular HGB Conc 34 g/dl (31-36); Mean Corpuscular Hemoglobin 30 pg (27-31); Mean Corpuscular Volume 89 fL (80-97); Nucleated Red Blood Cells % 0; Platelet Count 249 10^3/ul (150-450); Red Blood Count 4.42 10^6/ul (4.00-5.40); Red Cell Distribution Width 13 % (10.5-15)
[2018-07-23 22:06] LABS: INR 1.38 (0.77-1.02)
[2018-07-23 22:38] VITALS: BP 131/82
--- NOTE | 2018-07-23 22:45 | RAD ---
INDICATION: Midsternal chest pain in a woman recently diagnosed pulmonary embolism COMPARISON: Most recent comparison chest x-rays dated June 29, 2018 TECHNIQUE: Single AP portable view of the chest was obtained. FINDINGS: Image quality is compromised due to the relative inferiority of a portable chest x-ray. The heart and mediastinum exhibit normal size and contour. The lungs are grossly clear. There is no evidence of a large pleural effusion. Visualized bones are normal for the patient's age. IMPRESSION: No radiographic evidence for acute cardiopulmonary abnormality on this portable chest x-ray. R0
== END 2018-07-23 22:38 | disposition home or self-care (01) ==
LOC: ED 19:15
DX: F41.9 Anxiety disorder, unspecified (principal); R07.89 Other chest pain; R06.02 Shortness of breath; Z86.711 Personal history of pulmonary embolism; Z79.01 Long term (current) use of anticoagulants; Z88.0 Allergy status to penicillin; Z88.2 Allergy status to sulfonamides; Z87.891 Personal history of nicotine dependence
CPT/HCPCS: 36415; 71045; 80053; 82550; 82803; 83735; 83880; 84484; 84702; 85025; 85379; 85610; 85730; 93005; 99282

== ENCOUNTER 2018-10-12 15:59 | Emergency (ER) | payer BC, OTHER ==
[2018-10-12 16:07] VITALS: BP 136/70
[2018-10-12] MEDS ORDERED: LORazepam TAB(*) 0.5 MG PO ONE (16:35)
--- NOTE | 2018-10-12 16:41 | ED ---
HPI Chest Pain - HPI Summary HPI Summary: Patient presents with chest pain and shortness of breath. Shortness of breath started on October 01 when she returned from a trip to [place]. Reports this as not being able to take a deep breath at times and SOB with activities, most noticeably shoveling. She also gets this at times with transitioning from warm to cold weather but reports she's had this sx w/o change in temperature as well. Chest pain started with shoveling on October 04. This is central sternal pain that is also across the upper frontal chest. Worse w/ palpation, lying on side and when wearing a bra but can have pain w/o these triggers as well. Tried ice on front of her chest which helped a little a few days ago but doesn't consistently help. Has some pain along her left scapular region which she reported having with her PE which was diagnosed 3 months ago. She was on control at the time (has since stopped), had completed a driving trip out to [place] and back and was diagnosed with a coagulopathy. She has been on Xarelto 20mg daily for the past 3 months. Denies smoking. Pain is 2/10. Cough just started today. Patient denies hemoptysis, nasal congestion, ST, DURAN, otalgia, sneezing, fever, chills, headache, neck stiffness or pain, nausea, vomiting, diarrhea, abdominal pain, change in skin, numbness, tingling, weakness. Anxiety is 10/10. Took her zoloft this morning but has not taken her lorazepam which she only takes as needed. She reports she would usually take it with the anxiety level she has now. ISTOP reveals lorazepam 0.5 mg is her dose and last filled in June 2018. Patient states she only takes as needed. - History of Current Complaint Chief Complaint: UCRespiratory Time Seen by Provider: 10/12/18 16:12 Hx Obtained From: Patient, Family/Personnel Interviewer - sister Hx Last Menstrual Period: 09/22/18 Pain Intensity: 0 - Additional Pertinent History Primary Care Physician: [id number] - Allergy/Home Medications Allergies/Adverse Reactions: Allergies Allergy/AdvReac Type Severity Reaction Status Date / Time Penicillins Allergy Hives Verified 10/12/18 16:08 Sulfa (Sulfonamide Allergy Hives Verified 10/12/18 16:08 Antibiotics) Home Medications: Home Medications LORazepam TAB(*) [Ativan 0.5 MG TAB (*)] 1 tab PO BID 10/12/18 [History Confirmed 10/12/18] PMH/Surg Hx/FS Hx/Imm Hx Previously Healthy: Yes Endocrine/Hematology History: Reports: Hx Anticoagulant Therapy - xarelto, Hx Coagulopothy Denies: Hx Blood Transfusions, Hx Diabetes, Hx Sickle Cell Disease, Hx Thyroid Disease Cardiovascular History: Denies: Hx Angina, Hx Congenital Heart Disease, Hx Congestive Heart Failure, Hx Coronary Artery Disease, Hx Deep Vein Thrombosis, Hx Embolism, Hx Hypercholesterolemia, Hx Hypertension, Hx Peripheral Vascular Disease, Hx Rheumatic Fever, Hx Syncope, Hx Valvular Heart Disease Respiratory History: Reports: Hx Asthma - as a child, Hx Pneumonia - at 18 months old - hospitalized, Hx Pulmonary Embolism - dx'd in 07/2018 Denies: Hx Bronchopulmonary Dysplasia, Hx Chronic Bronchitis, Hx Chronic Obstructive Pulmonary Disease (COPD), Hx Cystic Fibrosis, Hx Lung Cancer, Hx Pleural Effusion GI History: Denies: Hx Crohn's Disease, Hx Diverticulosis, Hx Gall Bladder Disease, Hx Gastroesophageal Reflux Disease, Hx Gastrointestinal Bleed, Hx Hiatal Hernia, Hx Irritable Bowel, Hx Obstructive Bowel, Hx Ileostomy, Hx Pyloric Stenosis, Hx Ulcer History: Denies: Hx Benign Prostatic Hyperplasia, Hx Chronic Renal Failure, Hx Dialysis, Hx Kidney Infection, Hx Kidney Stones, Hx Renal Disease Musculoskeletal History: Comment Only: Other Musculoskeletal History - coccyx bone fx. Sensory History: Denies: Hx Cataracts, Hx Contacts or Glasses, Hx Eye Injury, Hx Eye Prosthesis, Hx Glaucoma, Hx Macular Degeneration, Hx Vision Problem, Hx Deafness , Hx Hearing Aid, Hx Hearing Problem, Other Sensory Impairments Opthamlomology History: Denies: Hx Cataracts, Hx Contacts or Glasses, Hx Eye Injury, Hx Eye Prosthesis, Hx Glaucoma, Hx Macular Degeneration, Hx Vision Problem, Other Sensory Impairments Neurological History: Denies: Hx Dementia, Hx Headaches, Hx Migraine, Hx Nerve Disease, Hx Seizures , Hx Transient Ischemic Attacks (TIA), Other Neuro Impairments/Disorders Psychiatric History: Reports: Hx Anxiety - takes daily zoloft and lorazepam 0.5mg PRN Denies: Hx Oppositional [place] Disorder, Hx Panic Disorder, Hx Schizophrenia, Hx of Violent Episodes Against Others - Surgical History Surgery Procedure, Year, and Place: tonsillectomy Infectious Disease History: No Infectious Disease History: Denies: Hx Clostridium Difficile, Hx Hepatitis, Hx Human Immunodeficiency Virus (HIV), Hx of Known/Suspected MRSA, Hx Shingles, Hx Tuberculosis, Hx Known/ Suspected VRE, Hx Known/Suspected VRSA, History Other Infectious Disease, Traveled Outside the US in Last 30 Days - Family History Known Family History: Negative: Renal Disease - Social History Alcohol Use: None Hx Substance Use: No Substance Use Type: Reports: None Hx Tobacco Use: Yes - not currently Smoking Status (MU): Former Smoker Type: Cigarettes Amount Used/How Often: 1/3 PPD Length of Time of Smoking/Using Tobacco: 10 years Have You Smoked in the Last Year: Yes Review of Systems Constitutional: Negative Negative: Fever, Chills, Fatigue Eyes: Negative ENT: Negative Positive: Chest Pain. Negative: Palpitations Positive: Shortness Of Breath, Cough Gastrointestinal: Negative Positive: no symptoms reported Musculoskeletal: Negative Skin: Negative Neurological: Negative Positive: Anxious All Other Systems Reviewed And Are Negative: Yes Physical Exam Triage Information Reviewed: Yes Vital Signs On Initial Exam: Initial Vitals Temp Pulse Resp BP Pulse Ox 98.8 F 88 18 136/70 99 10/12/18 16:02 10/12/18 16:02 10/12/18 16:02 10/12/18 16:02 10/12/18 16:02 Vital Signs Reviewed: Yes Appearance: Positive: Well-Appearing, No Pain Distress, Obese Skin: Positive: Warm, Skin Color Reflects Adequate Perfusion, Dry - no erythema , no ecchymosis over affected area Head/Face: Positive: Normal Head/Face Inspection Eyes: Positive: Normal, EOMI ENT: Positive: Normal ENT inspection, Hearing grossly normal, Pharynx normal - mucosa moist Neck: Positive: Supple, Nontender Respiratory/Lung Sounds: Positive: Clear to Auscultation, Breath Sounds Present. Negative: Decreased Breath Sounds, Rales, Rhonchi, Stridor, Tracheal Deviation, Wheezes, Unable to speak in full sentences, Fatigue Cardiovascular: Positive: Normal, RRR, Pulses are Symmetrical in both Upper and Lower Extremities, S1, S2. Negative: IRR, Murmur, Rub, Leg Edema Left, Leg Edema Right - (-) Kimberly's B/L Abdomen Description: Positive: Nontender, No Organomegaly, Soft Bowel Sounds: Positive: Present Musculoskeletal: Positive: Normal, Strength/ROM Intact Neurological: Positive: Normal, Sensory/Motor Intact, Alert, Oriented to Person Place, Time, CN Intact II-III Psychiatric: Positive: Anxious Diagnostics - Vital Signs Vital Signs Temp Pulse Resp BP Pulse Ox 10/12/18 16:02 98.8 F 88 18 136/70 99 - Laboratory Lab Statement: Any lab studies that have been ordered have been reviewed, and results considered in the medical decision making process. Re-Evaluation - Re-Evaluation First Eval Change: Unchanged Chest Pain Course/Dx - Course Course Of Treatment: Pt here w/ SOB, CP and new onset cough today w/ h/o PE. CXR: no acute findings. ECG: NSR, 78 bpm, no ST elevations or strain pattern - no change compared to previous. Advised to go to ED for further w/u. Offered ambulance - pt and sister declined as sister reports she will drive her to ED directly from here. Pt understands risks of her driving and agrees to refrain. Vitals stable at time of d/c. - Diagnoses Provider Diagnoses: Chest pain, Shortness of breath, Cough, History of pulmonary embolism, History of coagulopathy Discharge - Sign-Out/Discharge Documenting (check all that apply): Patient Departure All imaging exams completed and their final reports reviewed: Yes - Discharge Plan Condition: Stable Disposition: HOME-RECOMMEND TO ED Patient Education Materials: Chest Pain (ED), Shortness of Breath (ED) Additional Instructions: With your symptoms of chest pain and shortness of breath with new cough and history of pulmonary embolism and coagulopathy, it is recommended that you go to the ED for further evaluation. Note your chest XR and ECG appear normal here in the urgent care. The emergency department providers may access these reports. - Billing Disposition and Condition Condition: STABLE Disposition: Home-Recommend to ED
[2018-10-12] MEDS ORDERED: LORazepam TAB(*) 1 MG PO ONE (16:47)
== END 2018-10-12 17:22 | disposition home health service (06) ==
LOC: UCEAST 15:59
DX: R06.02 Shortness of breath (principal); R07.9 Chest pain, unspecified; I26.99 Other pulmonary embolism without acute cor pulmonale; R05 Cough; Z88.0 Allergy status to penicillin; Z88.1 Allergy status to other antibiotic agents; D68.9 Coagulation defect, unspecified; Z79.01 Long term (current) use of anticoagulants; J45.909 Unspecified asthma, uncomplicated; Z87.891 Personal history of nicotine dependence
CPT/HCPCS: 71046; 93005; 99212; A9270-GY; G0463